=== PATIENT | male | born 1990 | race Hispanic/Latino ===

== ENCOUNTER 2017-11-16 11:17 | Inpatient (IN) | payer SELFPAY ==
[~2017-11-16] VITALS: Ht 165.1 cm; Wt 81.0 kg
[2017-11-16] VITALS (8 sets, daily range): BP systolic 106–128; BP diastolic 67–87
[~2017-11-16 11:17] MED LIST: METFORMIN500 MG PO; ZPAK PO
[2017-11-16] MEDS ORDERED: SERTRALINE HCL50 MG PO (11:57)
[2017-11-16] MEDS ORDERED: METFORMIN500 MG PO (11:58)
[2017-11-16 12:19] LABS: IMMATURE GRANULOCYTES 0.4 % (0.0-1.0); MEAN CELL VOLUME 86.6 fL CALC (80.0-100.0); MEAN CORPUSCULAR HGB 30.3 pG CALC (26.0-32.0); NEUT# 5.68 thou/uL (1.82-7.42); RED BLOOD COUNT 4.99 mill/uL (4.70-6.10); RED CELL DISTRI WIDTH 13.2 % (11.5-15.5)
[2017-11-16 12:22] LABS: URINE BILIRUBIN - DIPSTICK NEGATIVE (NEGATIVE); URINE BLOOD DIPSTICK TRACE-INTACT (NEGATIVE); URINE COLOR YELLOW; URINE GLUCOSE - DIPSTICK >=1000 mg/dL (NEGATIVE); URINE KETONE >=80 mg/dL (NEGATIVE); URINE LEUK ESTERASE NEGATIVE (NEGATIVE); URINE NITRITE - DIPSTICK NEGATIVE (Negative); URINE PH 5.5 (4.5-8.0); URINE PROTEIN - DIPSTICK NEGATIVE (NEG-TRACE); URINE SPECIFIC GRAVITY 1.015; URINE UROBILINOGEN - DIPSTICK 0.2 E.U./dL (0.2)
[2017-11-16 12:26] LABS: HEMATOCRIT 43.2 % (39.0-50.0); HEMOGLOBIN 15.1 g/dl (14.0-18.0); URINE CLARITY CLEAR
[2017-11-16 12:33] LABS: BILIRUBIN, TOTAL 0.6 mg/dL (0.0-1.4); BUN 9 mg/dL (9-20); BUN/CREATININE RATIO 11 (12-20 (CALC)); CHLORIDE 97 mmol/l (95-108); CREATININE 0.8 mg/dL (0.7-1.3); GFR > 60 ML/MIN (>=60 (CALC)); GFR FOR AFR.AMER. > 60 ML/MIN (>=60 (CALC)); SGPT/ALT 57 u/l (21-72); SODIUM 134 mmol/l (137-146); TOTAL PROTEIN 7.5 g/dL (6.3-8.2)
[2017-11-16 12:37] LABS: POTASSIUM 3.4 mmol/l (3.5-5.1)
[2017-11-16 12:38] LABS: ALBUMIN 4.4 g/dL (3.2-5.0); ALKALINE PHOSPHATASE 171 u/l (38-126); ANION GAP 33 (6-22 (CALC)); CARBON DIOXIDE 7 mmol/l (22-30); SGOT/AST 25 u/l (17-59)
[2017-11-16 17:58] LABS: POTASSIUM 2.7 mmol/l (3.5-5.1)
[2017-11-16 21:15] LABS: POTASSIUM 2.8 mmol/l (3.5-5.1)
[2017-11-17] VITALS (13 sets, daily range): BP systolic 98–117; BP diastolic 50–79
[2017-11-17 01:27] LABS: POTASSIUM 3.7 mmol/l (3.5-5.1)
[2017-11-17 05:27] LABS: POTASSIUM 3.4 mmol/l (3.5-5.1)
[2017-11-17 06:43] LABS: ANION GAP 23 (6-22 (CALC)); CARBON DIOXIDE 15 mmol/l (22-30); CHLORIDE 105 mmol/l (95-108); POTASSIUM 3.4 mmol/l (3.5-5.1); SODIUM 139 mmol/l (137-146)
[2017-11-17 06:45] LABS: HEMATOCRIT 40.1 % (39.0-50.0); HEMOGLOBIN 14.3 g/dl (14.0-18.0); MEAN CELL VOLUME 85.5 fL CALC (80.0-100.0); MEAN CORPUSCULAR HGB 30.5 pG CALC (26.0-32.0); MEAN CORPUSCULAR HGB CONC 35.7 g/L CALC (32.0-36.0); RED BLOOD COUNT 4.69 mill/uL (4.70-6.10); RED CELL DISTRI WIDTH 13.4 % (11.5-15.5)
[2017-11-17 06:55] LABS: BUN 8 mg/dL (9-20); BUN/CREATININE RATIO 13 (12-20 (CALC)); CREATININE 0.6 mg/dL (0.7-1.3); GFR > 60 ML/MIN (>=60 (CALC)); GFR FOR AFR.AMER. > 60 ML/MIN (>=60 (CALC))
[2017-11-17 17:59] LABS: ANION GAP 20 (6-22 (CALC)); BUN 6 mg/dL (9-20); BUN/CREATININE RATIO 12 (12-20 (CALC)); CARBON DIOXIDE 22 mmol/l (22-30); CHLORIDE 99 mmol/l (95-108); CREATININE 0.6 mg/dL (0.7-1.3); GFR > 60 ML/MIN (>=60 (CALC)); GFR FOR AFR.AMER. > 60 ML/MIN (>=60 (CALC)); POTASSIUM 3.6 mmol/l (3.5-5.1); SODIUM 137 mmol/l (137-146)
[2017-11-18] VITALS (8 sets, daily range): BP systolic 88–110; BP diastolic 58–75
[2017-11-18 05:35] LABS: HEMATOCRIT 39.9 % (39.0-50.0); HEMOGLOBIN 14.3 g/dl (14.0-18.0); MEAN CELL VOLUME 84.4 fL CALC (80.0-100.0); MEAN CORPUSCULAR HGB 30.2 pG CALC (26.0-32.0); MEAN CORPUSCULAR HGB CONC 35.8 g/L CALC (32.0-36.0); RED BLOOD COUNT 4.73 mill/uL (4.70-6.10); RED CELL DISTRI WIDTH 12.9 % (11.5-15.5)
[2017-11-18 05:36] LABS: ANION GAP 16 (6-22 (CALC)); BUN 9 mg/dL (9-20); BUN/CREATININE RATIO 18 (12-20 (CALC)); CARBON DIOXIDE 28 mmol/l (22-30); CHLORIDE 100 mmol/l (95-108); CREATININE 0.5 mg/dL (0.7-1.3); GFR > 60 ML/MIN (>=60 (CALC)); GFR FOR AFR.AMER. > 60 ML/MIN (>=60 (CALC)); SODIUM 140 mmol/l (137-146)
[2017-11-18] MEDS ORDERED: NOVOLIN 70/30 SC (11:21)
== END 2017-11-18 14:30 | disposition home or self-care (01) | DRG 639 ==
LOC: ED 11:17 → ED-I 14:13 → ED 14:50 → ICU 14:51
PROVIDERS: Family Medicine; ADMIT Internal Medicine; ATTEND Internal Medicine
PROC: 3E0234Z Introduction of Serum, Toxoid and Vaccine into Muscle, Percutaneous Approach (ICD-10-PCS; principal; 2017-11-18)
DX: E11.10 Type 2 diabetes mellitus with ketoacidosis without coma (principal); E87.6 Hypokalemia; F10.10 Alcohol abuse, uncomplicated; F17.210 Nicotine dependence, cigarettes, uncomplicated; Z91.14 Patient's other noncompliance with medication regimen; Z23 Encounter for immunization

== ENCOUNTER 2018-06-12 17:51 | Inpatient (IN) | payer SELFPAY ==
[~2018-06-12] VITALS: Ht 165.1 cm; Wt 63.2 kg
[~2018-06-12 17:51] MED LIST changes: +NOVOLIN 70/30 SC; +SERTRALINE HCL50 MG PO
--- NOTE | 2018-06-12 18:00 | NUR ---
PATIENT TO ROOM VIA EMS STRETCHER, TEX. EMS BLOOD GLUCOSE 400.
[2018-06-12] MEDS ORDERED: INSULIN SC (18:28)
[2018-06-12] MEDS ORDERED: ACCUPRIL5 MG PO (18:28)
--- NOTE | 2018-06-12 18:29 | NUR ---
PATIENT REPORTS TAKING INSULIN TO TREAT DIABETES, UNKNOWN WHAT INSULIN. REPORTS LAST TAKING X1 WEEKS AGO.
[2018-06-12 18:34] LABS: HEMOGLOBIN 15.2 g/dl (14.0-18.0); MEAN CORPUSCULAR HGB 30.2 pG CALC (26.0-32.0); MEAN CORPUSCULAR HGB CONC 32.4 g/L CALC (32.0-36.0); PLATELET COUNT 201 thou/uL (130-400); RED BLOOD COUNT 5.04 mill/uL (4.70-6.10); RED CELL DISTRI WIDTH 12.7 % (11.5-15.5)
[2018-06-12 18:39] LABS: URINE BILIRUBIN - DIPSTICK NEGATIVE (NEGATIVE); URINE BLOOD DIPSTICK SMALL (NEGATIVE); URINE COLOR YELLOW; URINE GLUCOSE - DIPSTICK 500 mg/dL (NEGATIVE); URINE KETONE >=80 mg/dL (NEGATIVE); URINE LEUK ESTERASE NEGATIVE (NEGATIVE); URINE NITRITE - DIPSTICK NEGATIVE (Negative); URINE PROTEIN - DIPSTICK 30 mg/dL (NEG-TRACE); URINE SPECIFIC GRAVITY >=1.030; URINE UROBILINOGEN - DIPSTICK 0.2 E.U./dL (0.2)
--- NOTE | 2018-06-12 18:40 | NUR ---
PATIENT REQUESTING PO FLUIDS, INFORMED OF NPO STATUS.
[2018-06-12 18:46] LABS: ALBUMIN 4.7 g/dL (3.2-5.0); ALKALINE PHOSPHATASE 142 u/l (38-126); BILIRUBIN, TOTAL 0.6 mg/dL (0.0-1.4); BUN 10 mg/dL (9-20); BUN/CREATININE RATIO 12 (12-20 (CALC)); CHLORIDE 104 mmol/l (95-108); CREATININE 0.8 mg/dL (0.7-1.3); GFR > 60 ML/MIN (>=60 (CALC)); GFR FOR AFR.AMER. > 60 ML/MIN (>=60 (CALC)); SGOT/AST 19 u/l (17-59); SODIUM 134 mmol/l (137-146); URINE CLARITY CLEAR
[2018-06-12 18:54] LABS: URINE SQUAMOUS EPITHELIAL CELL FEW EPI/hpf (0-FEW)
[2018-06-12 18:55] LABS: URINE HYALINE CAST FEW lpf (NONE-RARE); URINE YEAST FEW hpf
[2018-06-12 18:57] LABS: ANION GAP 29 (6-22 (CALC)); CARBON DIOXIDE < 5 mmol/l (22-30)
--- NOTE | 2018-06-12 18:59 | NUR ---
REPORT GIVEN TO ALFONZO CHATMAN. INFORM OF PATIENT LABS AND TREATMENT. CARE RELINQUISHED TO ALFONZO CHATMAN.
--- NOTE | 2018-06-12 19:09 | NUR ---
IV PHENERGAN GIVEN PER MD ORDER.
[2018-06-12 19:23] LABS: HEMATOCRIT 46.9 % (39.0-50.0); MEAN CELL VOLUME 93.1 fL CALC (80.0-100.0)
[2018-06-12 19:26] LABS: IMMATURE GRANULOCYTES 8.9 % (0.0-5.0)
[2018-06-12 19:27] LABS: BAND 16 % (0-8); MANUAL DIFFERENTIAL YES
--- NOTE | 2018-06-12 19:30 | NUR ---
ACCU CHECK 319 MD AWARE.
--- NOTE | 2018-06-12 19:43 | NUR ---
IV INSULIN GIVEN PER MD ORDER.
--- NOTE | 2018-06-12 20:12 | NUR ---
REPORT GIVEN TO AMANDA MEJÍA AT BEDSIDE.
--- NOTE | 2018-06-12 20:14 | NUR ---
IV ABT. STARTED PER MD ORDER.
--- NOTE | 2018-06-12 20:45 | NUR ---
ACCU CHECK 247, INSULIN GTT STARTED AT 3 UNITS/HR. PER MD ORDER.
--- NOTE | 2018-06-12 20:59 | NUR ---
PT. TAKEN TO ICU VIA STRETCHER, PT. GUMS APPEAR THEY ARE BLEEDING. GAS WELDING EQUIPMENT MECHANIC AMANDA AWARE. MOUTH CARE GIVEN BY ICU NURSES.
[2018-06-12 21:00] VITALS: BP 126/76
--- NOTE | 2018-06-12 21:00 | NUR ---
PT TO ICU BED 4 VIA STRETCHER. PT SLEEPING WITH SNOROUS BREATHING NOTED. PT AROUSES SLUGGISHLY TO VERBAL STIMULI. PT ABLE TO TRANSFER WITH MINIMAL ASSISTANCE FROM STRETCHER TO BED. PT IS ALERT TO SELF AND PLACE PT IS UNSURE OF DATE. PT REPORTS THAT HE DRANK 20 BEERS ON WEDNESDAY BUT DOES NOT DRINK EVERYDAY. PT RESP ARE EXTREMELY LABORED. PT IS VERY RESTLESS. NOTED COPIOUS BLOOD IN ORAL CAVITY. ORAL CAVITY CLEANSED. PT REQUESTING WATER. EXPLAINED NPO STATUS TO PATIENT. ORIENTED TO ROOM AND UNIT. CALL LIGHT IN REACH. IV PATENT X2. COMPLETING 2ND BOLUS OF IVF. DR ROSE NOTIFIED OF PT STATUS. NEW ORDERS RECEIVED. WILL CONTINUE TO [facility]
[2018-06-12 21:15] VITALS: BP 140/72
[2018-06-12 21:30] VITALS: BP 138/92
--- NOTE | 2018-06-12 21:30 | NUR ---
RT INTO COMPLETE ABG. LAB INTO DRAW LACTIC AND CH7
[2018-06-12 21:55] LABS: BARBITURATES NEGATIVE (NEGATIVE); COCAINE NEGATIVE (NEGATIVE); METHADONE NEGATIVE (NEGATIVE); OXCYCODONE NEGATIVE (NEGATIVE); TETRAHYDROCANNABIONOL NEGATIVE (NEGATIVE); TRICYLIC ANTIDEPRESSANTS NEGATIVE (NEGATIVE)
[2018-06-12 22:03] LABS: BUN 11 mg/dL (9-20); BUN/CREATININE RATIO 14 (12-20 (CALC)); CHLORIDE 112 mmol/l (95-108); CREATININE 0.8 mg/dL (0.7-1.3); GFR > 60 ML/MIN (>=60 (CALC)); GFR FOR AFR.AMER. > 60 ML/MIN (>=60 (CALC)); POTASSIUM 3.7 mmol/l (3.5-5.1); SODIUM 138 mmol/l (137-146)
[2018-06-12 22:12] LABS: ANION GAP 25 (6-22 (CALC)); CARBON DIOXIDE < 5 mmol/l (22-30)
--- NOTE | 2018-06-12 22:12 | NUR ---
SODIUM BICARB GIVEN PER MD ORDERS. PT CONTINUES TO BE RESTLESS IN BED WHILE SLEEPING ON AND OFF. CALL LIGHT IN REACH. WILL CONTINUE TO MONITOR.
--- NOTE | 2018-06-12 22:16 | NUR ---
DR ROES NOTIFIED OF LAB RESULTS.
[2018-06-12 22:20] VITALS: BP 115/92
--- NOTE | 2018-06-12 23:00 | NUR ---
ACCUCHECK 270 WILL CONTINUE THE INSULIN DRIP AT 3 UNITS PER HOUR
[2018-06-12 23:15] VITALS: BP 132/85
--- NOTE | 2018-06-12 23:52 | NUR ---
MEDICATED PT WITH ATIVAN AND ZOFRAN PER MD ORDERS. PT RESTLESS IN BED EVEN WHEN EYES ARE CLOSED. PT CONTINUOUSLY ASKING FOR WATER EVEN AFTER NAUSEA/VOMTTING OCCURRED. EXPLAINED AGAIN THAT PT HAS A NPO STATUS. PT UPSET THAT HE IS NOT GETTING WATER AND CONTINUES TO BE RESTLESS. WILL CONTINUE TO CLOSELY MONITOR
--- NOTE | 2018-06-12 23:56 | NUR ---
ACCUCECK 250. WILL MAINTAIN THE INSULIN DRIP AT 3UNITS/HR
[2018-06-13] VITALS (16 sets, daily range): BP systolic 77–149; BP diastolic 45–75
--- NOTE | 2018-06-13 00:37 | NUR ---
CALLED RESPIRATORY TO LOOK AT PATIENT DUE TO A CHANGE IN BREATHING. PT SEEMS TO BE GASPING FOR AIR AND STRIDOR IS NOTED. RT RECOMMENDED ANOTHER ABG. ABG DRAWN. LAB INTO DRAW BMP. PT CONTINUES TO BE RESTLESS IN BED. WHILE NOTIFY MD ONCE WE RECIEVE ALL RESULTS.
[2018-06-13 00:54] LABS: BUN 11 mg/dL (9-20); BUN/CREATININE RATIO 13 (12-20 (CALC)); CHLORIDE 114 mmol/l (95-108); CREATININE 0.9 mg/dL (0.7-1.3); GFR > 60 ML/MIN (>=60 (CALC)); GFR FOR AFR.AMER. > 60 ML/MIN (>=60 (CALC)); POTASSIUM 3.4 mmol/l (3.5-5.1); SODIUM 140 mmol/l (137-146)
[2018-06-13 00:56] LABS: ANION GAP 24 (6-22 (CALC)); CARBON DIOXIDE < 5 mmol/l (22-30)
[2018-06-13 01:00] LABS: INFLUENZA A NONE DETECTED (NONE DETECT); INFLUENZA B NONE DETECTED (NONE DETECT)
[2018-06-13 01:26] LABS: INTERNATIONAL NORMALIZED RATIO 1.1 RATIO (0.7-1.3); PROTHROMBIN TIME 11.4 SECONDS (9.0-12.5)
[2018-06-13 01:27] LABS: MAGNESIUM 1.9 mg/dL (1.6-2.3)
[2018-06-13 01:59] LABS: HEMATOCRIT 44.9 % (39.0-50.0); HEMOGLOBIN 14.9 g/dl (14.0-18.0); MEAN CELL VOLUME 92.8 fL CALC (80.0-100.0); MEAN CORPUSCULAR HGB 30.8 pG CALC (26.0-32.0); MEAN CORPUSCULAR HGB CONC 33.2 g/L CALC (32.0-36.0); RED BLOOD COUNT 4.84 mill/uL (4.70-6.10); RED CELL DISTRI WIDTH 12.8 % (11.5-15.5)
[2018-06-13 02:21] LABS: IMMATURE GRANULOCYTES 11.2 % (0.0-5.0); MANUAL DIFFERENTIAL YES; PLATELET COUNT 119 thou/uL (130-400)
[2018-06-13 02:22] LABS: BAND 3 % (0-8); PLATELET ESTIMATE SLIGHT DECREASE
--- NOTE | 2018-06-13 03:14 | NUR ---
0053-RANGELAND MANAGEMENT SPECIALIST CALLED 0057-Jose Enrique MOJICA RN RESPONSDED 0105-DR AYALA AT [facility] DECISION MADE TO INTUBATE AFTER REVEIWEING ABG AND ASSESSING PT. 0110-REPORT DR ROSE VIA PHONE NEW ORDERS RECEIVED. 0114-INTUBATION INDUCED WITH 20MG OF ETOMADATE AND 90MG SUCC BY DR AYALA. 7.0 ET TUBE PLACED 24 CM AT LIP CONFIRMED BY CO2 DETECTOR AND AUSCULATION 0120-CALL PLACED TO XRAY 0122-14 OG PLACED TO LIS 0130-DIPROVAN INFUSION STARTED PER PROTOCOL RESTRAINTS APPLIED PER MD ORDER. 0135- XRAY CONFIRMED PLACEMENT OF ET TUBE 0136-OG TUBE REMOVED #18 REPLACED WITH COFFEE GROUND STOMACH CONTENTS TO LIS 0147-#20G TO RFA 0150-#18 TO LAC 0157-ATIVAN 0201- PROTONIX IV BOLUS 0210 16 MENDIETA 0225-DIPROVAN INCREASED PER PROTOCOL 0227-DR ROSE AT BEDSIDE 0230-ACCU CHECK [address] LOWERY AT [facility] 0255-PHONE CONMSULT WITH ANESTHESIA ALLISON KIM FIREWORKS ASSEMBLY SUPERVISOR FOR SEDATION/PARALYTIC 0304- ROCORONIUM 50MG GIVEN PER MD PER PROTOCOL 0305- DIPROVAN DECREASED TO 25MCG 0308-CENTRAL LINE #7FR TLC PLACED TO R FEMORAL PER DR AYALA MULTIPLE CONSULTED CALLS WITH DR ROSE OLMSTEAD TO [facility]. AWAITING PLACEMETN FOR TRANSFER [facility]ULT[facility]LE HOSPITALS CALLED FOR PLACEMENT.
--- NOTE | 2018-06-13 03:41 | NUR ---
ROCORONIUM GIVEN BY MD PER PROTOCOL
[2018-06-13 03:55] LABS: ANION GAP 21 (6-22 (CALC)); BUN 14 mg/dL (9-20); BUN/CREATININE RATIO 13 (12-20 (CALC)); CHLORIDE 118 mmol/l (95-108); GFR > 60 ML/MIN (>=60 (CALC)); GFR FOR AFR.AMER. > 60 ML/MIN (>=60 (CALC)); POTASSIUM 3.6 mmol/l (3.5-5.1); SODIUM 140 mmol/l (137-146)
--- NOTE | 2018-06-13 04:00 | NUR ---
SPOKE WITH SUMI GONZALEZ'S SIGNIFICANT OTHER, NOTIFIED OF PT BEING TRANSFERRED TO [facility], VOICES UNDERSTANDING.
[2018-06-13 04:02] LABS: CARBON DIOXIDE 5 mmol/l (22-30)
--- NOTE | 2018-06-13 04:09 | NUR ---
REPORT CALLED TO HENNY IN ICU. PHONE NUMBER PROVIDED FOR FURTHER QUESTIONS.
--- NOTE | 2018-06-13 04:10 | NUR ---
ATTEMPTED TO CALL NEXT OF KIN ON FACE SHEET. NO ANSWER AT THE NUMBER PROVIDED.
[2018-06-13 04:13] LABS: MEAN CELL VOLUME 91.2 fL CALC (80.0-100.0); MEAN CORPUSCULAR HGB 30.7 pG CALC (26.0-32.0); MEAN CORPUSCULAR HGB CONC 33.7 g/L CALC (32.0-36.0); PLATELET COUNT 117 thou/uL (130-400); RED CELL DISTRI WIDTH 12.9 % (11.5-15.5)
[2018-06-13 04:21] LABS: HEMATOCRIT 38.3 % (39.0-50.0); HEMOGLOBIN 12.9 g/dl (14.0-18.0)
[2018-06-13 04:22] LABS: BAND 7 % (0-8); MANUAL DIFFERENTIAL YES; PLATELET ESTIMATE SLIGHT DECREASE
--- NOTE | 2018-06-13 04:30 | NUR ---
AEORMED ARRIVED. REPORT PROVIDED TO
--- NOTE | 2018-06-13 06:00 | NUR ---
PT ON STRETCHER LEFT VIA STRETCHER WITH [facility]ER[facility]ED.
--- NOTE | 2018-06-13 06:21 | NUR ---
ALENA WALLER MADE ALL CALLS STARTING AT APPROX 0200 TO [facility] FOR PLACEMENT ALSO PLACED AEROMED ON STANDBY UNTIL WE HAD ACCEPTANCE. CALLS PLACED TO [facility], [facility], [facility], AND [facility]. [facility] ACCEPTED AND AEROMED WAS CALLED AND ENROUTE AT 0400.
== END 2018-06-13 05:50 | disposition short-term general hospital (02) | DRG 638 ==
LOC: ED 17:51 → ED-I 19:50 → ED 20:02 → ICU 20:03
PROVIDERS: Emergency Medicine; ADMIT Internal Medicine; ATTEND Internal Medicine
PROC: 0BH17EZ Insertion of Endotracheal Airway into Trachea, Via Natural or Artificial Opening (ICD-10-PCS; principal; 2018-06-13)
PROC: 5A1935Z Respiratory Ventilation, Less than 24 Consecutive Hours (ICD-10-PCS; 2018-06-13)
DX: E10.10 Type 1 diabetes mellitus with ketoacidosis without coma (principal); G93.49 Other encephalopathy; K92.0 Hematemesis; F10.10 Alcohol abuse, uncomplicated; F99 Mental disorder, not otherwise specified; F17.210 Nicotine dependence, cigarettes, uncomplicated; R06.1 Stridor; Z91.14 Patient's other noncompliance with medication regimen; Z79.4 Long term (current) use of insulin; Z78.1 Physical restraint status
CPT/HCPCS: J2060; J2354; J3475; S0164

== ENCOUNTER 2019-09-19 | Inpatient (IN) | payer SELFPAY ==
[2019-09-19] VITALS (74 sets, daily range): BP systolic 68–107; BP diastolic 40–70
[~2019-09-19] MED LIST changes: +ACCUPRIL5 MG PO; +INSULIN SC
[2019-09-19 04:48] LABS: HEMATOCRIT 47.9 % (39.0-50.0); HEMOGLOBIN 15.4 g/dl (14.0-18.0); IMMATURE GRANULOCYTES 4.8 % (0.0-5.0); MEAN CELL VOLUME 101.3 fL CALC (80.0-100.0); MEAN CORPUSCULAR HGB 32.6 pG CALC (26.0-32.0); MEAN CORPUSCULAR HGB CONC 32.2 g/L CALC (32.0-36.0); NEUT# 18.82 thou/uL (1.82-7.42); RED BLOOD COUNT 4.73 mill/uL (4.70-6.10); RED CELL DISTRI WIDTH 12.3 % (11.5-15.5)
[2019-09-19 04:59] LABS: ACT PARTIAL THROMBO TIME 39.2 SECONDS (20.0-32.5); INTERNATIONAL NORMALIZED RATIO 1.1 RATIO (0.7-1.3); PROTHROMBIN TIME 11.7 SECONDS (9.0-12.5)
[2019-09-19 05:00] LABS: ALBUMIN 4.8 g/dL (3.2-5.0); AMYLASE 204 u/l (30-110); BILIRUBIN, TOTAL 0.7 mg/dL (0.0-1.4); BUN 17 mg/dL (9-20); BUN/CREATININE RATIO 11 (12-20 (CALC)); CREATININE 1.5 mg/dL (0.7-1.3); ETHYL ALCOHOL 0 mg/dl (0-30); GFR 55 ML/MIN (>=60 (CALC)); GFR FOR AFR.AMER. > 60 ML/MIN (>=60 (CALC)); LIPASE 188 u/l (23-300); POTASSIUM 4.1 mmol/l (3.5-5.1); SODIUM 133 mmol/l (137-146); TOTAL PROTEIN 8.7 g/dL (6.3-8.2)
[2019-09-19 05:09] LABS: CHLORIDE 100 mmol/l (95-108)
[2019-09-19 05:10] LABS: ALKALINE PHOSPHATASE 223 u/l (38-126); ANION GAP 32 (6-22 (CALC)); MAGNESIUM 2.8 mg/dL (1.6-2.3); SGOT/AST 75 u/l (17-59)
[2019-09-19 05:11] LABS: CARBON DIOXIDE 5 mmol/l (22-30)
[2019-09-19 07:18] LABS: BUN 17 mg/dL (9-20); BUN/CREATININE RATIO 13 (12-20 (CALC)); CHLORIDE 107 mmol/l (95-108); CREATININE 1.3 mg/dL (0.7-1.3); GFR > 60 ML/MIN (>=60 (CALC)); GFR FOR AFR.AMER. > 60 ML/MIN (>=60 (CALC)); POTASSIUM 4.6 mmol/l (3.5-5.1); SODIUM 136 mmol/l (137-146)
[2019-09-19 07:24] LABS: ANION GAP 29 (6-22 (CALC)); CARBON DIOXIDE 5 mmol/l (22-30)
[2019-09-19 11:55] LABS: BUN 21 mg/dL (9-20); BUN/CREATININE RATIO 15 (12-20 (CALC)); CHLORIDE 110 mmol/l (95-108); CREATININE 1.4 mg/dL (0.7-1.3); GFR 59 ML/MIN (>=60 (CALC)); GFR FOR AFR.AMER. > 60 ML/MIN (>=60 (CALC)); SODIUM 137 mmol/l (137-146)
[2019-09-19 11:58] LABS: ANION GAP 26 (6-22 (CALC)); CARBON DIOXIDE < 5 mmol/l (22-30)
[2019-09-19 12:47] LABS: URINE BILIRUBIN - DIPSTICK NEGATIVE (NEGATIVE); URINE BLOOD DIPSTICK LARGE (NEGATIVE); URINE COLOR YELLOW; URINE GLUCOSE - DIPSTICK >=1000 mg/dL (NEGATIVE); URINE KETONE >=80 mg/dL (NEGATIVE); URINE LEUK ESTERASE NEGATIVE (NEGATIVE); URINE NITRITE - DIPSTICK NEGATIVE (Negative); URINE PROTEIN - DIPSTICK 30 mg/dL (NEG-TRACE); URINE SPECIFIC GRAVITY 1.015; URINE UROBILINOGEN - DIPSTICK 0.2 E.U./dL (0.2)
[2019-09-19 12:48] LABS: URINE EPITHELIAL CELLS FEW EPI/hpf (0-FEW); URINE MUCUS MODERATE hpf (NONE-FEW)
[2019-09-19 12:52] LABS: BARBITURATES NEGATIVE (NEGATIVE); COCAINE NEGATIVE (NEGATIVE); METHADONE NEGATIVE (NEGATIVE); OXCYCODONE NEGATIVE (NEGATIVE); TETRAHYDROCANNABIONOL NEGATIVE (NEGATIVE); TRICYLIC ANTIDEPRESSANTS NEGATIVE (NEGATIVE)
[2019-09-19 15:19] LABS: BUN 29 mg/dL (9-20); BUN/CREATININE RATIO 19 (12-20 (CALC)); CHLORIDE 112 mmol/l (95-108); CREATININE 1.6 mg/dL (0.7-1.3); GFR 51 ML/MIN (>=60 (CALC)); GFR FOR AFR.AMER. > 60 ML/MIN (>=60 (CALC)); SODIUM 137 mmol/l (137-146)
[2019-09-19 15:21] LABS: ANION GAP 22 (6-22 (CALC)); POTASSIUM 2.9 mmol/l (3.5-5.1)
[2019-09-19 15:22] LABS: CARBON DIOXIDE 6 mmol/l (22-30)
[2019-09-19 18:11] LABS: CREATININE 1.9 mg/dL (0.7-1.3); POTASSIUM 2.7 mmol/l (3.5-5.1)
[2019-09-19 22:47] LABS: CREATININE 2.2 mg/dL (0.7-1.3); POTASSIUM 2.8 mmol/l (3.5-5.1)
[2019-09-20] VITALS (9 sets, daily range): BP systolic 93–111; BP diastolic 49–61
[2019-09-20 05:22] LABS: MEAN CORPUSCULAR HGB 33.3 pG CALC (26.0-32.0); MEAN CORPUSCULAR HGB CONC 35.9 g/L CALC (32.0-36.0); RED BLOOD COUNT 3.63 mill/uL (4.70-6.10); RED CELL DISTRI WIDTH 12.8 % (11.5-15.5)
[2019-09-20 05:39] LABS: HEMATOCRIT 33.7 % (39.0-50.0); HEMOGLOBIN 12.1 g/dl (14.0-18.0); MEAN CELL VOLUME 92.8 fL CALC (80.0-100.0)
[2019-09-20 05:50] LABS: BILIRUBIN, TOTAL 0.6 mg/dL (0.0-1.4); CREATININE 2.9 mg/dL (0.7-1.3); POTASSIUM 2.9 mmol/l (3.5-5.1)
[2019-09-20 05:52] LABS: ALBUMIN 2.1 g/dL (3.2-5.0); TOTAL PROTEIN 4.8 g/dL (6.3-8.2)
== END 2019-09-20 11:27 | disposition short-term general hospital (02) | DRG 871 ==
PROVIDERS: ADMIT Internal Medicine
PROC: 0BH17EZ Insertion of Endotracheal Airway into Trachea, Via Natural or Artificial Opening (ICD-10-PCS; principal; 2019-09-19)
PROC: 5A1935Z Respiratory Ventilation, Less than 24 Consecutive Hours (ICD-10-PCS; 2019-09-19)
PROC: 02HV33Z Insertion of Infusion Device into Superior Vena Cava, Percutaneous Approach (ICD-10-PCS; 2019-09-19)
DX: A41.9 Sepsis, unspecified organism (principal); E10.10 Type 1 diabetes mellitus with ketoacidosis without coma; J18.9 Pneumonia, unspecified organism; R65.21 Severe sepsis with septic shock; G93.41 Metabolic encephalopathy; N17.9 Acute kidney failure, unspecified; F17.210 Nicotine dependence, cigarettes, uncomplicated; T38.3X6A Underdosing of insulin and oral hypoglycemic [antidiabetic] drugs, initial encounter; Z91.128 Patient's intentional underdosing of medication regimen for other reason; Z79.4 Long term (current) use of insulin
CPT/HCPCS: J2060; S0164

== ENCOUNTER 2020-10-15 10:11 | Inpatient (IN) | payer SELFPAY ==
--- NOTE | 2020-10-14 22:20 | NUR ---
BLOOD DRAWN FROM TLC FOR CHEM 7-PORT FLUSHED PRE AND POST BLOOD DRAW PER PROTOCOL.
[2020-10-15] VITALS (11 sets, daily range): BP systolic 122–154; BP diastolic 81–98
[~2020-10-15] VITALS: Ht 165.1 cm; Wt 76.0 kg
--- NOTE | 2020-10-15 10:11 | NUR ---
PATIENT SOB FOR PAST 1 MONTH HAS STOPPED TAKING INSULIN AND HAS BEEN ON A DRINKING BINGE. MD AT BEDSIDE PATIENT HAS ACETONE SMELLING BREATH
[2020-10-15 11:03] LABS: IMMATURE GRANULOCYTES 1.1 % (0.0-5.0); MEAN CELL VOLUME 95.9 fL CALC (80.0-100.0); MEAN CORPUSCULAR HGB 31.1 pG CALC (26.0-32.0); MEAN CORPUSCULAR HGB CONC 32.4 g/dL CAL (32.0-36.0); NEUT# 8.64 thou/uL (1.82-7.42); RED BLOOD COUNT 5.15 mill/uL (4.70-6.10); RED CELL DISTRI WIDTH 15.1 % (11.5-15.5)
[2020-10-15 11:20] LABS: BILIRUBIN, TOTAL 0.8 mg/dL (0.0-1.4); BUN 11 mg/dL (9-20); ETHYL ALCOHOL 0 mg/dl (0-30); LIPASE 47 u/l (23-300); SGOT/AST 35 u/l (17-59)
[2020-10-15 11:21] LABS: HEMATOCRIT 49.4 % (39.0-50.0)
[2020-10-15 11:30] LABS: BUN/CREATININE RATIO 12 (12-20 (CALC)); CHLORIDE 100 mmol/l (95-108); CREATININE 0.9 mg/dL (0.7-1.3); GFR > 60 ML/MIN (>=60 (CALC)); GFR FOR AFR.AMER. > 60 ML/MIN (>=60 (CALC)); POTASSIUM 5.1 mmol/l (3.5-5.1); SODIUM 130 mmol/l (137-146)
[2020-10-15 11:31] LABS: ALBUMIN 4.7 g/dL (3.2-5.0); ALKALINE PHOSPHATASE 134 u/l (38-126); ANION GAP 30 (6-22 (CALC)); CARBON DIOXIDE < 5 mmol/l (22-30); TOTAL PROTEIN 10.2 g/dL (6.3-8.2)
--- NOTE | 2020-10-15 11:39 | NUR ---
CRITICAL LAB TAKEN AND RELAYED TO DR GOTTI
[2020-10-15 11:53] LABS: TSH, 3RD GENERATION 0.54 uIU/mL (0.47 - 4.68)
[2020-10-15 12:06] LABS: URINE BILIRUBIN - DIPSTICK NEGATIVE (NEGATIVE); URINE BLOOD DIPSTICK SMALL (NEGATIVE); URINE COLOR YELLOW; URINE GLUCOSE - DIPSTICK 500 mg/dL (NEGATIVE); URINE KETONE >=80 mg/dL (NEGATIVE); URINE LEUK ESTERASE NEGATIVE (NEGATIVE); URINE NITRITE - DIPSTICK NEGATIVE (Negative); URINE PROTEIN - DIPSTICK 100 mg/dL (NEG-TRACE); URINE SPECIFIC GRAVITY >=1.030; URINE UROBILINOGEN - DIPSTICK 0.2 E.U./dL (0.2)
[2020-10-15 12:08] LABS: URINE EPITHELIAL CELLS FEW EPI/hpf (0-FEW); URINE MUCUS MODERATE hpf (NONE-FEW); URINE RBC 0-2 RBC/hpf (0-5)
--- NOTE | 2020-10-15 12:30 | NUR ---
PT CONTINUES WITH FAST BREATHING, MD ORDERED MANY PRESCRIPTIONS AND HE STATES THAT A CENTRAL LINE IS WARRENTED. PT AND FAMILY WHO IS AT BEDSIDE IS UPDATED AND EDUCATED ON THE NEED FOR A CENTRAL LINE
--- NOTE | 2020-10-15 13:30 | NUR ---
BG RECHECKED AND IT RESULTED IN 326. PT RR IS SLOWER AND AT ABOUT 30. INSULINE CONTINUES TO BE INFUSED BICARB/POTASSIUM INFUSION CONTINUES LR CONTINUE TO BE INFUSED.
[2020-10-15] MEDS ORDERED: LEVEMIR100 UNIT/M SC (13:50)
--- NOTE | 2020-10-15 14:20 | NUR ---
REPORT GIVEN TO SANTY PT TRANSPORTED TO ICU STABLE. RR CONTINUE TO BE ELEVATED AT 25-30. PT STATES THAT HE FEELS "A BIT BETTER". CONTINUES TO ASK FOR WATER BUT AT THIS POINT HE IS TOLD THAT HE IS NPO. TRANSPORTED WITH DRIPS INFUSING. Admission Note Report Given to: SANTY Transported by: Wheelchair X Stretcher Transported with: X Nurse Transporter X Patent IV O2 X Machined Parts Quality Inspector Location: X ICU MS2
--- NOTE | 2020-10-15 14:39 | NUR ---
PT ARRIVED TO UNIT ROOM 8 VIA STRETCHER WITH ER STAFF; ALERT AND ORIENTED; SWEDISH SPEAKING. ARRIVED TACHYPNEIC WITH RESPIRATIONS AT 36, FACIAL FLUSHING, AND SLIGHTLY ANXIOUS. STOOD AND PIVOTED INTO BED INDEPENDENTLY; ANSWERING QUESTIONS ABOUT HIS HISTORY. CONNECTED TO ATTACHMENTS; TACHYCARDIC IN THE 110'S; BP STABLE. SPO2 99-100% ON ROOM AIR; OXYGEN APPLIED AT 2L DUE TO LABORED BREATHING. CENTRAL LINE IN PLACE TO RIGHT NECK; REPLACED DUE TO BEING SATURATED WITH BLOOD; CH7 DRAWN FROM CENTRAL LINE AND SENT TO LAB. INSULIN INFUSING AT 4 UNITS/HR UPON ARRIVAL ALONG WITH SODIUM BICARB WITH POTASSIUM AND LACTATED RINGERS. PERIPHERAL IV TO LAC SALINE LOCKED. PT DENIES PAIN; REPORTS SUNBURN AROUND EYES AND UPPER CHEST WHERE HE HAS INCREASED REDNESS. LUNGS ARE CLEAR; PERRLA; ABRASION TO LEFT KNEE. ORIENTED TO ROOM AND CALL LIGHT SYSTEM. POC REVIEWED. PT ENCOURAGED TO VERBALIZE CONCERNS. STATES UNDERSTANDING. SAFETY MEASURES IN PLACE. CALL LIGHT WITHIN REACH.
[2020-10-15 15:38] LABS: BUN 9 mg/dL (9-20); BUN/CREATININE RATIO 12 (12-20 (CALC)); CHLORIDE 105 mmol/l (95-108); CREATININE 0.8 mg/dL (0.7-1.3); GFR > 60 ML/MIN (>=60 (CALC)); GFR FOR AFR.AMER. > 60 ML/MIN (>=60 (CALC)); POTASSIUM 4.7 mmol/l (3.5-5.1); SODIUM 132 mmol/l (137-146)
[2020-10-15 15:58] LABS: ANION GAP 27 (6-22 (CALC)); CARBON DIOXIDE < 5 mmol/l (22-30)
--- NOTE | 2020-10-15 16:00 | NUR ---
BAKARI COLMENARES AT BEDSIDE FOR EVAL. NEW ORDERS RECEIVED.
--- NOTE | 2020-10-15 16:55 | NUR ---
ACCU CHECK 210; INSULIN GTT TITRATED DOWN TO 3 UNITS/HR; D5 1/2 NS INFUSING PER DKA PROTOCOL. ATIVAN ALSO GIVEN FOR MILD ANXIETY.
--- NOTE | 2020-10-15 17:05 | NUR ---
INSULIN DRIP TITRATED DOWN TO 2 UNITS/HR FOR ACCU CHECK OF 199. PT RESTING ON RIGHT SIDE WITH EYES CLOSED ASLEEP WITH RESPIRATIONS DOWN TO 28 AFTER ATIVAN GIVEN.
[2020-10-15 18:58] LABS: BUN 8 mg/dL (9-20); BUN/CREATININE RATIO 11 (12-20 (CALC)); CHLORIDE 107 mmol/l (95-108); CREATININE 0.7 mg/dL (0.7-1.3); GFR > 60 ML/MIN (>=60 (CALC)); GFR FOR AFR.AMER. > 60 ML/MIN (>=60 (CALC)); POTASSIUM 4.1 mmol/l (3.5-5.1); SODIUM 132 mmol/l (137-146)
--- NOTE | 2020-10-15 19:00 | NUR ---
BS 196 OFF LAB DRAW-INSULIN GTT CONTINUES AT 2 UNITS/HR.
[2020-10-15 19:01] LABS: ANION GAP 24 (6-22 (CALC))
[2020-10-15 19:02] LABS: CARBON DIOXIDE < 5 mmol/l (22-30)
--- NOTE | 2020-10-15 19:30 | NUR ---
RESTING WITH EYES CLOSED. OPENS EYES TO NAME. ORIENTED X3. ANSWERS QUESTIONS APPROPRIATELY. FOLLOWS DIRECTIONS. RESP ARE DEEP, SLT TACHYPNEIC, NON-LABORED. O2 ON AT 2 L NC. O2 SAT 100% BREATH SOUNDS CLEAR THROUGHOUT LUNG MIRANDA. ABD SOFT WITH BOWEL SOUNDS. DENIES NAUSEA OR EMESIS. TAKING ICE CHIPS SPARINGLY. NO PERIPHERAL EDEMA, PULSES PALPABLE. SALINE LOCK IN TACT IN LAC. RITLC IN PLACE, DSG CDI. D51/2 NS INFUSING AT 125 ML/HR AND INSULIN GTT AT 2 UNITS/HR TO [facility]. RESIDENT CARE ASSISTANT SHOWS ST. DISCUSSED PLAN OF CARE. DENEIS NEEDS AT THIS TIME. CALL DICK IN REACH.
--- NOTE | 2020-10-15 21:00 | NUR ---
RSTIGN WITH EYES CLOSED. VSS. ST ON MONITOR.
[2020-10-15 22:54] LABS: BUN 8 mg/dL (9-20); BUN/CREATININE RATIO 9 (12-20 (CALC)); CHLORIDE 107 mmol/l (95-108); CREATININE 0.9 mg/dL (0.7-1.3); GFR > 60 ML/MIN (>=60 (CALC)); GFR FOR AFR.AMER. > 60 ML/MIN (>=60 (CALC)); POTASSIUM 3.9 mmol/l (3.5-5.1); SODIUM 133 mmol/l (137-146)
--- NOTE | 2020-10-15 23:00 | NUR ---
CHEMISTRY RESULTS BACK, NO CHANGES TO CURRENT IV FLUIDS AT THIS TIME. D5 1/2NS CONTINUES TO INFUSE AT 125 ML/HR.
[2020-10-15 23:04] LABS: ANION GAP 25 (6-22 (CALC)); CARBON DIOXIDE < 5 mmol/l (22-30)
[2020-10-16] VITALS (23 sets, daily range): BP systolic 107–153; BP diastolic 67–99
--- NOTE | 2020-10-16 | NUR ---
MEDICATED WITH LIBRIUM ORDERED FOR ANXIETY. VSS. INSULIN GTT CONTINUES AT 3 UNITS/HR.
--- NOTE | 2020-10-16 01:00 | NUR ---
RESTING CALMLY AT THIS T RINKU. RESP REMAIN VERY DEEP. RR 24-28.
--- NOTE | 2020-10-16 02:30 | NUR ---
BLOOD DRAWN FROM TLC FOR TROPONIN LEVEL AND CH7. PRE AND POST BLOOD DRAW FLUSHES PER PROTOCOL.
[2020-10-16 02:59] LABS: BUN 9 mg/dL (9-20); BUN/CREATININE RATIO 8 (12-20 (CALC)); CHLORIDE 109 mmol/l (95-108); CREATININE 1.1 mg/dL (0.7-1.3); GFR > 60 ML/MIN (>=60 (CALC)); GFR FOR AFR.AMER. > 60 ML/MIN (>=60 (CALC)); POTASSIUM 3.9 mmol/l (3.5-5.1); SODIUM 135 mmol/l (137-146)
[2020-10-16 03:01] LABS: ANION GAP 25 (6-22 (CALC)); CARBON DIOXIDE < 5 mmol/l (22-30)
--- NOTE | 2020-10-16 04:00 | NUR ---
BS BY ACCU CHECK 306, INSULIN GTT INCREASED TO 4 UNITS/HR. VSS. PATIENT RESTING WITH EYES CLOSED, AWAKENS EASILY TO NAME.
[2020-10-16 06:15] LABS: BASO% 0 % (0-3); EOS% 0 % (0-8); HEMATOCRIT 43.8 % (39.0-50.0); HEMOGLOBIN 14.8 g/dl (14.0-18.0); IMMATURE GRANULOCYTES 1.6 % (0.0-5.0); LYMPH% 7 % (15-41); MEAN CORPUSCULAR HGB 30.4 pG CALC (26.0-32.0); MEAN CORPUSCULAR HGB CONC 33.8 g/dL CAL (32.0-36.0); MONO% 11 % (2-13); NEUT# 9.72 thou/uL (1.82-7.42); NEUT% 81 % (42-76); RED BLOOD COUNT 4.87 mill/uL (4.70-6.10); RED CELL DISTRI WIDTH 15.8 % (11.5-15.5)
[2020-10-16 06:18] LABS: MEAN CELL VOLUME 89.9 fL CALC (80.0-100.0); PLATELET COUNT 111 thou/uL (130-400)
[2020-10-16 06:32] LABS: ALBUMIN 3.9 g/dL (3.2-5.0); ALKALINE PHOSPHATASE 81 u/l (38-126); BILIRUBIN, TOTAL 0.8 mg/dL (0.0-1.4); BUN 11 mg/dL (9-20); BUN/CREATININE RATIO 9 (12-20 (CALC)); CHLORIDE 109 mmol/l (95-108); CHOLESTEROL HDL RATIO 5.6 (<4.4 (CALC)); CREATININE 1.3 mg/dL (0.7-1.3); GFR > 60 ML/MIN (>=60 (CALC)); GFR FOR AFR.AMER. > 60 ML/MIN (>=60 (CALC)); HDL CHOLESTEROL 52 mg/dL (>=40); POTASSIUM 3.8 mmol/l (3.5-5.1); SGOT/AST 22 u/l (17-59); SODIUM 133 mmol/l (137-146); TOTAL CHOLESTEROL 289 mg/dl (0-199)
[2020-10-16 06:36] LABS: ANION GAP 23 (6-22 (CALC)); CARBON DIOXIDE < 5 mmol/l (22-30); TOTAL PROTEIN 7.1 g/dL (6.3-8.2)
[2020-10-16 06:39] LABS: VLDL CHOLESTROL 185 mg/dl (5-56 (CALC))
[2020-10-16 06:47] LABS: CALCULATED LDLCHOLESTEROL 52 mg/dL (62-129 (CALC)); TOTAL TRIGLYCERIDES 923 mg/dl (30-149)
--- NOTE | 2020-10-16 07:40 | NUR ---
REPORT RECEIVED FROM ALFONZO KOTHAIR. PT RESTING IN BED SEMI FOWLERS WITH EYES CLOSED; DROWSY AND ORIENTED X 3; OPENS EYES TO VERBAL STIMULI. C/O GENERALIZED BODY ACHES AND SORE THROAT. RESPIRATIONS ARE EVEN AND UNLABORED ON OXYGEN 2L VIA NC; LUNGS INITIALLY WITH EXPIRATORY RHONCHI ANTERIORLY THAT CLEARS WITH COUGHING; LUNGS CLEAR THROUGHOUT. RIJ APPEARS HEALTHY; DSG CDI. INSULIN GTT INFUSING AT 3 UNITS/HR AND D5 1/2 NS AT 125 ML/HR; #20G TO LAC APPEARS HEALTHY AND FLUSHES. PT HAS REDNESS TO FACE AND UPPER CHEST; PT FEELING COLD WITH HOT, MOIST SKIN; AFEBRILE; CIWA SCORE OF 4. SAFETY MEASURES IN PLACE. CALL LIGHT WITHIN REACH.
--- NOTE | 2020-10-16 08:20 | NUR ---
DR. RUDD AT BEDSIDE. NEW ORDERS RECEIVED.
--- NOTE | 2020-10-16 10:06 | NUR ---
IV FLUIDS INCREASED TO 150 ML/HR; SODIUM BICARB WITH POTASSIUM NOW ALSO INFUSING AT 100 ML/HR. INSULIN CONTINUES AT 3 UNITS/HR. BLOOD WORK OBTAINED FROM CENTRAL LINE AND SENT TO LAB.
[2020-10-16 10:44] LABS: ANION GAP 19 (6-22 (CALC)); BUN 15 mg/dL (9-20); BUN/CREATININE RATIO 9 (12-20 (CALC)); CHLORIDE 109 mmol/l (95-108); CREATININE 1.6 mg/dL (0.7-1.3); GFR 50 ML/MIN (>=60 (CALC)); GFR FOR AFR.AMER. > 60 ML/MIN (>=60 (CALC)); POTASSIUM 3.5 mmol/l (3.5-5.1); SODIUM 131 mmol/l (137-146)
[2020-10-16 10:51] LABS: CARBON DIOXIDE 7 mmol/l (22-30)
--- NOTE | 2020-10-16 12:09 | NUR ---
ZOSYN INFUSING; PT CONTINUES TO REST WITH EYES CLOSED; ONLY OPENS EYES WHEN ENGAGED; CIWA SCORE OF 0; PT NOW RECEIVING LIBRIUM SCHEDULED EVERY 8 HOURS. NO CHANGES MADE TO DRIPS AFTER SCHEDULED CH7. WILL CONTINUE TO MONITOR.
--- NOTE | 2020-10-16 14:15 | NUR ---
SCHEDULED BLOOD DRAWN AND SENT TO LAB. PT CONTINUES TO C/O SORE THROAT, NO NOTED COUGH; TONSILS ARE RED AND SWOLLEN; PT HAS TENDER AND SWOLLEN ANTERIOR CERVICAL LYMPH NODES. TEMPERATURE IS CURRENTLY 99.0. MD NOTIFIED. NEW ORDER RECEIVED.
[2020-10-16 14:40] LABS: CREATININE 1.9 mg/dL (0.7-1.3); POTASSIUM 3.3 mmol/l (3.5-5.1)
--- NOTE | 2020-10-16 17:46 | NUR ---
UP TO CHAIR FOR ASSISTED BATH WITH LINEN CHANGE; LINEN AND GOWN MOIST WITH SWEAT. VOIDED 800ML OF CLEAR YELLOW URINE IN URINAL. CHLORASEPTIC THROAT LOZENGE GIVEN FOR SORE THROAT.
[2020-10-16 18:22] LABS: CREATININE 2.2 mg/dL (0.7-1.3); POTASSIUM 2.9 mmol/l (3.5-5.1)
--- NOTE | 2020-10-16 18:40 | NUR ---
NEW ORDER RECEIVED FROM DR. RUDD AFTER LAST BLOOD DRAW. PT PROVIDED DINNER TRAY. STATES THAT HE IS FEELING BETTER AND IS BREATHING EASIER; REPORTS THAT HE FEELS LIKE HE SLEPT GOOD TODAY. MORE ALERT AND ORIENTED X 3. REMAINS UP IN BEDSIDE CHAIR WATCHING TV. REORIENTED TO CALL LIGHT AND PLACED WITHIN REACH.
--- NOTE | 2020-10-16 20:20 | NUR ---
PATIENT IS AWAKE, ORIENTED X4. CIWA SCORE 0. NO COMPLAINTS OF PAIN. ON RA, O2 SAT GREATER THAN 95%. VS WNL, NO SOB NOTED, RESPIRATION RATE 21-25 RESPS./MIN. NURSE ASSESSMENT PERFORMED. PATIENT SITS IN RECLINER, EATS ALL OF HIS MEAL. REQUESTS WATER, REPORTS HE WAS VERY HUNGRY. WAS EDUCATED ABOUT DIABTES AND DRINKING ALCOHOL. REPORTS HE DRINKS 2-3 BEERS PER DAY AND UP TO 7 ON THE WEEKENDS. RIJ TRIPLE LUMEN INTACT, NEW IV FLUIDS STARTED NS WITH 20 MEQ OF POTASSIUM. INSULIN DRIP TITRATED TO 4 UNITS/HR FOR BS 377 MG/DL. LAC 2O G IV INTACT.
--- NOTE | 2020-10-16 21:43 | NUR ---
GLUCOSE ORDERED DUE TO ACCUCHECK MACHINE READS CRITICALLY HIGH. INSULIN DRIP TITRATED TO 5 UNITS/HR.
--- NOTE | 2020-10-16 21:44 | NUR ---
PATIENT WAS ASSISTED STANDBY BACK TO BED. NO ACUTE DISTRESS SHOWN. NO COMPLAINTS, ICED WATER PROVIDED, VOIDS YELLOW/CLEAR URINE IN URINAL. CALL LIGHT WITHIN REACH.
[2020-10-16 21:58] LABS: CREATININE 2.4 mg/dL (0.7-1.3); POTASSIUM 3.1 mmol/l (3.5-5.1)
--- NOTE | 2020-10-16 22:15 | NUR ---
CALLED AND SPOKE TO DR RUDD REGARDING PATIENT'S CH-7 LABWORK RESULTS AND ALSO GLUCOSE CRITICALLY HIGH 472 MG/DL. PER DR RUDD KEEP PATIENT ON INSULIN DRIP PROTOCOL ONLY. IF BS IS LESS THAN 200 MG/DL THAN INSULIN DRIP CAN BE TURNED OFF.
[2020-10-17] VITALS (16 sets, daily range): BP systolic 93–117; BP diastolic 51–83
--- NOTE | 2020-10-17 00:02 | NUR ---
PATIENT IS AWAKE. NO COMPLAINTS OF PAIN. REPORTS HE IS HUNGRY, NOTIFIED HIM HIS BLOOD SUGARS ARE STILL HIGH AND WE WILL BE CHECKING THROUGH THE NIGHT AND IF BS GOES LOWER THAN WE CAN PROVIDE A SNACK, PATIENT AGREES. ALL VS WNL, AFEBRILE. CALL LIGHT WITHIN REACH.
--- NOTE | 2020-10-17 02:01 | NUR ---
PATIENT IS AWAKE, NO COMPLAINTS OR NEEDS AT THIS TIME. CALL LIGHT WITHIN REACH.
--- NOTE | 2020-10-17 04:12 | NUR ---
PATIENT AWAKENS EASILY WITH VERBAL STIMULI, NO ACUTE DISTRESS SHOWN. AFEBRILE, VS WNL. CALL LIGHT WITHIN REACH.
--- NOTE | 2020-10-17 05:50 | NUR ---
PATIENT AWAKENS EASILY, IV ANTIBITOIC NFUSING, ABLE TO SWALLOW LIBRIUM, PROVIDED A SNACK AND JUICE THIS MORNING, ATE 100%. ALL VITALS WNL. NO COMPLAINTS OR PAIN AT THIS TIME. CALL LIGHT WITHIN REACH.
--- NOTE | 2020-10-17 07:48 | NUR ---
PT LAYING IN BED. A&O X3. NO DISTRESS NOTED. PT C/O OF SLIGHT BUTLER 2/10. CIWA SCORE OF 1. PT DENIES ANY NAUSEA AT THIS TIME. NO TREMORS NOTED. ACCUCHECK THIS MORNING OF 352. PT REPORTS TO BE FEELING A LOT BETTER. CURRENTLY SR 91 ON MONITOR. ASSESSMENT COMPLETED. DISCUSSED POC. CALL LIGHT LEFT WITHIN REACH.
--- NOTE | 2020-10-17 08:43 | NUR ---
DR RUDD AT BEDSIDE
--- NOTE | 2020-10-17 10:00 | NUR ---
ACCUCHECK OF 585. DR RUDD NOTIFIED OF RESULTS.
--- NOTE | 2020-10-17 10:20 | NUR ---
ORDER REC TO INITIATE INSULIN GTT AGAIN ON PT.
[2020-10-17 11:57] LABS: IMMATURE GRANULOCYTES 0.6 % (0.0-5.0); MEAN CELL VOLUME 88.1 fL CALC (80.0-100.0); MEAN CORPUSCULAR HGB 30.1 pG CALC (26.0-32.0); MEAN CORPUSCULAR HGB CONC 34.2 g/dL CAL (32.0-36.0); NEUT# 3.94 thou/uL (1.82-7.42); RED BLOOD COUNT 4.05 mill/uL (4.70-6.10); RED CELL DISTRI WIDTH 16.8 % (11.5-15.5)
[2020-10-17 12:06] LABS: HEMATOCRIT 35.7 % (39.0-50.0); HEMOGLOBIN 12.2 g/dl (14.0-18.0)
[2020-10-17 12:26] LABS: POTASSIUM 3.2 mmol/l (3.5-5.1)
[2020-10-17 12:35] LABS: CREATININE 3.4 mg/dL (0.7-1.3)
--- NOTE | 2020-10-17 15:22 | NUR ---
INSULIN DRIP TITRATED DOWN TO 3U/HR. WITH AN ACCUCHECK OF 260.
--- NOTE | 2020-10-17 16:03 | NUR ---
GLUCOSE 265, INSULING GTT REMAINS AT 3U/HR
[2020-10-17 16:26] LABS: CREATININE 3.4 mg/dL (0.7-1.3); POTASSIUM 2.7 mmol/l (3.5-5.1)
--- NOTE | 2020-10-17 16:35 | NUR ---
D CINDA LINARESN NOTIFIED OF K LEVEL OF 2.7. ORDERS REC FOR 40 MEQ POTASSIUM IV. ORDER READ BACK, WRITTEN AND FAXED TO PHARMACY.
--- NOTE | 2020-10-17 16:36 | NUR ---
ATTEMPT MADE TO PLACE CONSULT WITH DR NAVARRO. NO ANSWER, VOICEMAIL LEFT
--- NOTE | 2020-10-17 16:57 | NUR ---
ACCUCHECK 224, INSULIN GTT KEPT AT 3U/HR. PER D CINDA VILLEGAS CHANGE IV FLUIDS TO D5NS @ 125 ML/HR.
--- NOTE | 2020-10-17 18:11 | NUR ---
ACCU CHECK 240, INSULIN GTT REMAINS AT 3U/HR
--- NOTE | 2020-10-17 19:22 | NUR ---
PATIENT IS AWAKE, CONVERSATES, ORIENTED X4. POC DISCUSSED. NURSE ASSESSMENT PERFORMED. ALL VITALS WNL. NO COMPLAINTS OF PAIN. ASKED IF FAMILY COULD BRING DIET DRINKS TO HIM, I NOTIFIED HIM THEY ARE ABLE TO AND TO DRINK WATER WELL. RIJ TRIPLE LUMEN INTACT, BROWN LUMEN RETURNS BLOOD PROPERLY. CIWA SCORE 0. POTASSIUM CHLORIDE 20 MEQ IV INFUSING NOW AT 50 ML/HR. D5NS INFUSING AT 125 ML/HR. URINE LIGHT YELLOW/CLEAR. CALL LIGHT WITHIN REACH.
--- NOTE | 2020-10-17 20:39 | NUR ---
BLOOD DRAWN FOR CH7 DUE. INSTRUCTED WILL NEED A URINE SPECIMEN.
[2020-10-17 20:59] LABS: CREATININE 3.4 mg/dL (0.7-1.3); POTASSIUM 3.3 mmol/l (3.5-5.1)
--- NOTE | 2020-10-17 21:30 | NUR ---
BEDTIME MEDICATIONS PROVIDED. NO ACUTE DISTRESS SHOWN. OFFERED A BED BATHE, AGREES.
--- NOTE | 2020-10-17 21:46 | NUR ---
PATIENT NOW SITS ON SIDE OF BED, WASHING HIMSELF UP WITH WARM WASH CLOTHS. NO ACUTE DISTRESS SHOWN.
--- NOTE | 2020-10-17 22:12 | NUR ---
PATIENT WAS ABLE TO WASH HIMSELF, WASHED HIS TEETH. NO ACUTE DISTRESS SHOWN. NOW LAYS IN MCCRACKEN'S. ALL VS WNL. INSULIN DRIP TITRATED TO 2 UNITS/HR FROM 3 UNITS/HR. UA WAS COLLECTED.
[2020-10-18] VITALS (12 sets, daily range): BP systolic 91–121; BP diastolic 56–88
--- NOTE | 2020-10-18 00:09 | NUR ---
PATIENT AWAKENS EASILY WHEN SPOKEN TO, BS CHECKED, NO TITRTATION PERINSULIN DRIP PROTOCOL. BLOOD DRAWN FROM [facility] FOR CH7 DUE. NO COMPLAINTS OR NEEDS AT THIS TIME. VS WNL. CALL LIGHT WITHIN REACH.
[2020-10-18 00:52] LABS: CREATININE 3.4 mg/dL (0.7-1.3); POTASSIUM 2.9 mmol/l (3.5-5.1)
--- NOTE | 2020-10-18 02:39 | NUR ---
PATIENT AWAKENS EASILY WHEN SPOKEN TO. NO ACUTE DISTRESS SHOWN. CALL LIGHT WITHIN REACH.
[2020-10-18 04:21] LABS: HEMATOCRIT 35.4 % (39.0-50.0); IMMATURE GRANULOCYTES 0.4 % (0.0-5.0); MEAN CELL VOLUME 88.9 fL CALC (80.0-100.0); MEAN CORPUSCULAR HGB 30.2 pG CALC (26.0-32.0); MEAN CORPUSCULAR HGB CONC 33.9 g/dL CAL (32.0-36.0); NEUT# 2.97 thou/uL (1.82-7.42); RED BLOOD COUNT 3.98 mill/uL (4.70-6.10); RED CELL DISTRI WIDTH 17.2 % (11.5-15.5)
[2020-10-18 04:43] LABS: CREATININE 3.4 mg/dL (0.7-1.3); POTASSIUM 2.8 mmol/l (3.5-5.1)
[2020-10-18 04:47] LABS: ALBUMIN 2.9 g/dL (3.2-5.0)
--- NOTE | 2020-10-18 06:02 | NUR ---
CALLED AND SPOKE TO JET LOO APRN TO NOTIFY OF ABG RESULTS FROM THIS MORNING WELL POTASSIUM LEVELS THIS MORNING, NO NEW ORDERS GIVEN.
--- NOTE | 2020-10-18 06:40 | NUR ---
PT RESTING COMFORTABLY ON RA. NAD. VSS.
[2020-10-18 08:38] LABS: CREATININE 3.4 mg/dL (0.7-1.3); POTASSIUM 2.7 mmol/l (3.5-5.1)
--- NOTE | 2020-10-18 09:00 | NUR ---
PT SEEN AWAKE, ALERT, ORIENTED X 3. LUNGS CLEAR, RA. PT ON INSULIN DRIP, ADJUSTED HOURLY NEEDED. DR RUDD IN TO SEE PT, NEW ORDERS RECEIVED. NO EVIDENCE OF ALCOHOL WITHDRAWAL. DIET CHANGED TO ALLOW SOLID FOODS, PT APPRECIATIVE. K RIDERS IN PROGRESS.
[2020-10-18 13:36] LABS: CREATININE 3.4 mg/dL (0.7-1.3); POTASSIUM 3.2 mmol/l (3.5-5.1)
--- NOTE | 2020-10-18 16:29 | NUR ---
BLOOD SUGAR AT 1500 WAS 145, SO INSULIN DRIP WAS STOPPED. AT 1600 IT WAS 117. NO ALCOHOL WITHDRAWAL SYMPTOMS.
[2020-10-18 16:30] LABS: CREATININE 3.5 mg/dL (0.7-1.3); POTASSIUM 3.4 mmol/l (3.5-5.1)
--- NOTE | 2020-10-18 19:30 | NUR ---
awake. denies distress. cardiac exercise physiologist shows sinus rhythm pvcs hr 80. #20 lac. 1/2ns infusing @ 125cchr. drinks large amounts of liquids. voids large amounts pale yellow urine. rij tlc in place & flushes well. fall precautions cont.
--- NOTE | 2020-10-18 20:00 | NUR ---
blood drawn & sent to lab.
[2020-10-18 20:33] LABS: CREATININE 3.3 mg/dL (0.7-1.3); POTASSIUM 3.2 mmol/l (3.5-5.1)
--- NOTE | 2020-10-18 22:00 | NUR ---
talking frequently on cell phone. no distress.
[2020-10-19] VITALS (19 sets, daily range): BP systolic 96–121; BP diastolic 58–90
--- NOTE | 2020-10-19 00:01 | NUR ---
blood drawn & sent to lab.
[2020-10-19 00:42] LABS: CREATININE 3.3 mg/dL (0.7-1.3); POTASSIUM 3.5 mmol/l (3.5-5.1)
--- NOTE | 2020-10-19 02:00 | NUR ---
awakens easily. denies distress. maitre d' shows sinus rhythm hr 72.
--- NOTE | 2020-10-19 04:00 | NUR ---
blood drawn & sent to lab.
[2020-10-19 05:07] LABS: HEMOGLOBIN 11.8 g/dl (14.0-18.0); IMMATURE GRANULOCYTES 0.2 % (0.0-5.0); MEAN CORPUSCULAR HGB 30.3 pG CALC (26.0-32.0); MEAN CORPUSCULAR HGB CONC 33.7 g/dL CAL (32.0-36.0); NEUT# 2.3 thou/uL (1.82-7.42); RED BLOOD COUNT 3.89 mill/uL (4.70-6.10); RED CELL DISTRI WIDTH 16.7 % (11.5-15.5)
[2020-10-19 05:31] LABS: CREATININE 3.4 mg/dL (0.7-1.3); POTASSIUM 3.1 mmol/l (3.5-5.1)
[2020-10-19 05:33] LABS: ALBUMIN 2.8 g/dL (3.2-5.0); BILIRUBIN, TOTAL 0.5 mg/dL (0.0-1.4); CREATININE 3.4 mg/dL (0.7-1.3); POTASSIUM 3.1 mmol/l (3.5-5.1); TOTAL PROTEIN 5.4 g/dL (6.3-8.2)
--- NOTE | 2020-10-19 06:00 | NUR ---
awakens easily. denies distress. ivf infusing well.
--- NOTE | 2020-10-19 07:41 | NUR ---
Recieved report from meat service team member. pt alert/oriented x3, denies any complaints at this time. accucheck at 7 was 240 will draw labs at 8 for the every 4 hour lab draw.
[2020-10-19 08:51] LABS: CREATININE 3.5 mg/dL (0.7-1.3); POTASSIUM 3.2 mmol/l (3.5-5.1)
--- NOTE | 2020-10-19 09:48 | NUR ---
PT REPORT GIVEN TO DR. ROSE PER TELEPHONE, NO NEW ORDERS AT THIS TIME. ACCCHECK AT 7 WAS 20, ACCUCHECK AT 8 207, ACCUCHECK AT 9 250
--- NOTE | 2020-10-19 09:50 | NUR ---
PT ALERT/ORIENTED X3, TALKING ON PHONE, NO COMPLAINTS AT THIS TIME, WHILE TALKING TO PT, HE STATES HE USED TO BE ON DIABETES MEDICATIONS BUT QUIT AWHILE AGO, AND STARTED DRINKING FAIRLY HEAVILY, AND JUST NEVER STARTED ON MEDICATIONS AGAIN. STATES HE HAS NOTICED IN LAST SEVERAL MONTHS HAS HAD INCREASING THIRST BUT DIDNT THINK ANYTHING ABOUT IT.
--- NOTE | 2020-10-19 11:51 | NUR ---
PT SITTING UP IN BED EATING LUNCH, WALKED INTO ROOM APPROX 10 MIN AGO, AND PT HAD A [employer] SAC THAT HE WAS EATING A SANDWICH OUT OF. ADVISED PT THAT HE COULD NOT EAT ANYTHING WE WERENT MONITERING.
--- NOTE | 2020-10-19 12:30 | NUR ---
CHANGED FLUIDS TO D51/2 WITH 40 KCL/\@ 125CC/HR PER INSULIN DRIP PROTOCOL. DR. ROSE NOTIFIED. URINE SPECIMEN OBTAINED AND SENT TO LAB
[2020-10-19 13:26] LABS: URINE BILIRUBIN - DIPSTICK NEGATIVE (NEGATIVE); URINE BLOOD DIPSTICK TRACE-INTACT (NEGATIVE); URINE CLARITY CLEAR; URINE COLOR YELLOW; URINE GLUCOSE - DIPSTICK 500 mg/dL (NEGATIVE); URINE KETONE NEGATIVE (NEGATIVE); URINE LEUK ESTERASE NEGATIVE (Negative); URINE NITRITE - DIPSTICK POSITIVE (Negative); URINE PH 5.5 (4.5-8.0); URINE PROTEIN - DIPSTICK NEGATIVE (NEG-TRACE); URINE UROBILINOGEN - DIPSTICK 0.2 E.U./dL (0.2)
[2020-10-19 13:48] LABS: CREATININE 3.3 mg/dL (0.7-1.3); POTASSIUM 3.4 mmol/l (3.5-5.1)
[2020-10-19 14:06] LABS: URINE RBC 0-2 RBC/hpf (0-5); URINE SQUAMOUS EPITHELIAL CELL RARE EPI/hpf (0-FEW); URINE WBC 0-2 WBC/hpf (0-5)
[2020-10-19 14:07] LABS: URINE YEAST MODERATE hpf
--- NOTE | 2020-10-19 14:48 | NUR ---
PT RESTING QUIETLY ON BED, NO COMPLAINTS AT THIS TIME. VITAL SIGNS STABLE. CALL LIGHT WITHIN REACH.
[2020-10-19 16:37] LABS: CREATININE 3.5 mg/dL (0.7-1.3); POTASSIUM 3.4 mmol/l (3.5-5.1)
--- NOTE | 2020-10-19 17:26 | NUR ---
CHANGED FLUIDS TO 1/2NS @ 125CC/HR. PER PROTOCOL. ACCUCHECK IS 275. PT TALKING ON PHONE, DENIES ANY COMPLAINTS,VITAL SIGNS STABLE. INSULIN DRIP AT 3 FOR ACCUCHECK OF 275.
--- NOTE | 2020-10-19 18:40 | NUR ---
PT RESTING QUIETLY ON BED, NO COMPLAINTS AT THIS TIME
--- NOTE | 2020-10-19 20:00 | NUR ---
blood drawn & sent to lab.
--- NOTE | 2020-10-19 20:10 | NUR ---
awake. denies distress. monitor car operator shows sinus rhythm hr 86. #20 lac saline lock. tij tlc in place. 1/2 ns infusing @ 125cchr, insulin gtt infusing @ 3u/hr. po fluids taken well. voids per urinal. fall precautions cont.
[2020-10-19 21:01] LABS: CREATININE 3.6 mg/dL (0.7-1.3); POTASSIUM 3.1 mmol/l (3.5-5.1)
--- NOTE | 2020-10-19 22:00 | NUR ---
awake. talking on cell phone. cardiac tech shows sinus rhythm hr 86.
[2020-10-20] VITALS (11 sets, daily range): BP systolic 88–112; BP diastolic 52–77
--- NOTE | 2020-10-20 00:01 | NUR ---
awahens easily. denies distress. ivf infusing well.
--- NOTE | 2020-10-20 02:00 | NUR ---
awakens easily. denies distress. secured entrance monitor shows sinus rhythm hr 74.
--- NOTE | 2020-10-20 04:00 | NUR ---
blood draw & urine spec collected & sent to lab.
[2020-10-20 06:01] LABS: CREATININE 3.6 mg/dL (0.7-1.3); MAGNESIUM 1.8 mg/dL (1.6-2.3); POTASSIUM 2.7 mmol/l (3.5-5.1)
--- NOTE | 2020-10-20 07:07 | NUR ---
PT REPORT RECEIVED FROM UTILITY WORKER PRODUCTION. PT SITTING UP IN BED, VAPOTHERM REMAINS ON, NO COMPLAINTS FROM PT. PT APPEARS TO BE SLIGHTLY INCREASED LABORED BREATHING.
--- NOTE | 2020-10-20 07:15 | NUR ---
REPORT RECEIVED FROM GRAVITY METER OPERATOR. PT SITTING UP IN BED TALKING ON CELLPHONE, NO SOB, NO COMPLAINTS AT THIS TIME. VITAL SIGNS STABLE. INSULIN GTT WAS SHUT OFF DURING NIGHT, PTS ACCUCHECK AT 7 WAS 163, REQUESTING MORE ICE WATER.
[2020-10-20 09:13] LABS: ALBUMIN 3.3 g/dL (3.2-5.0); BILIRUBIN, TOTAL 0.7 mg/dL (0.0-1.4); CREATININE 3.4 mg/dL (0.7-1.3); POTASSIUM 3.1 mmol/l (3.5-5.1); TOTAL PROTEIN 6.1 g/dL (6.3-8.2)
--- NOTE | 2020-10-20 09:22 | NUR ---
RESTARTED INSULIN GTT RESTARTED AT 3 PER DKA ORDER.
--- NOTE | 2020-10-20 10:27 | NUR ---
pts glucose level increasing, adjusting insulin drip per protocol. pt remains symptom free of any complaint. sitting up in bed watching tv.
--- NOTE | 2020-10-20 12:41 | NUR ---
PT SITTING UP IN BED, TALKING ON PHONE, ADVISED OF PLAN OF CARE THAT DOCTOR IS ORDERING. ADVISED THAT AT THIS TIME, FAMILY IS NOT ALLOWED TO BRING ANYTHING IN TO HIM TO EAT UNTIL GLUCOSE IS STABILIZED.
--- NOTE | 2020-10-20 16:24 | NUR ---
PT SLEEPING AT THIS TIME, VITAL SIGNS STABLE. DENIES ANY COMPLAINT BEFORE FALLING ASLEEP, CALL LIGHT WITHIN REACH, SIDE RAILS UP. IV FLUIDS INFUSING
[2020-10-20 17:46] LABS: ALBUMIN 3.2 g/dL (3.2-5.0); BILIRUBIN, TOTAL 0.7 mg/dL (0.0-1.4); CREATININE 3.3 mg/dL (0.7-1.3); POTASSIUM 3.7 mmol/l (3.5-5.1)
--- NOTE | 2020-10-20 18:09 | NUR ---
PT SITTING UP IN BED EATING AT THIS TIME, SODIUM BICARB STILL INFUSING, PT VITAL SIGNS STABLE.
[2020-10-20 19:57] LABS: HEMATOCRIT 38.4 % (39.0-50.0); HEMOGLOBIN 11.7 g/dl (14.0-18.0); MEAN CORPUSCULAR HGB 30.1 pG CALC (26.0-32.0); MEAN CORPUSCULAR HGB CONC 30.5 g/dL CAL (32.0-36.0); RED BLOOD COUNT 3.89 mill/uL (4.70-6.10); RED CELL DISTRI WIDTH 17.1 % (11.5-15.5)
[2020-10-20 19:59] LABS: MEAN CELL VOLUME 98.7 fL CALC (80.0-100.0)
--- NOTE | 2020-10-20 20:00 | NUR ---
PT ALERT AND ORIENTED. LAYING IN BED SODIUM BIC. DRIP CONTINUES. PT HAS NO COMPLAINT OF PAIN. NO COUGH. IV SITE IN L AC AND RIGHT JUG TRIPLE LUMEN FLUSH IS PATENT. PT FAMILY SENT UP CUCUMBER WATER AND GATORADE ZERO. CALL LIGHT AND TABLE WITHIN PT REACH. WILL CONTINUE TO MONITOR
--- NOTE | 2020-10-20 22:18 | NUR ---
PT SUGAR IS 459. DR INFORMED AND INSULIN ORDERS WAS NEVER PUT IN BUT NOW IN
[2020-10-21] VITALS (11 sets, daily range): BP systolic 86–122; BP diastolic 55–81
--- NOTE | 2020-10-21 | NUR ---
PT SLEEPING PEACEFULLY. EYES CLOSED. CALL LIGHT WITHIN RANGE BED IN LOWEST POSITION.
--- NOTE | 2020-10-21 02:00 | NUR ---
PT REMAINS SLEEPING PEACEFULLY. VITALS STABLE. IV FLUIDS CONTINUE. CALL LIGHT WITHIN RANGE
--- NOTE | 2020-10-21 04:00 | NUR ---
LAB ARE GETTING DRAWN FROM PT CENTRAL LINE IN HIS NECK. PT AWAKE. URINAL EMPTIED. NO COMPLAINT OF PAIN PT REMAINS IN HIS BED. WILL CONTINUE TO MONITOR
[2020-10-21 04:54] LABS: MEAN CORPUSCULAR HGB 30.3 pG CALC (26.0-32.0); MEAN CORPUSCULAR HGB CONC 33.8 g/dL CAL (32.0-36.0); RED BLOOD COUNT 3.3 mill/uL (4.70-6.10); RED CELL DISTRI WIDTH 15.1 % (11.5-15.5)
[2020-10-21 04:55] LABS: HEMATOCRIT 29.6 % (39.0-50.0); MEAN CELL VOLUME 89.7 fL CALC (80.0-100.0)
[2020-10-21 05:11] LABS: CREATININE 2.6 mg/dL (0.7-1.3); MAGNESIUM 1.6 mg/dL (1.6-2.3)
--- NOTE | 2020-10-21 06:26 | NUR ---
PT AWAKE AND ALERT. URINAL EMPIED OUT. DENIES PAIN. IV FLUIDS CONTINUE RUNNING. WATER PITCHER FULLED WITH ICE WATER AGAIN WILL CONTINUE TO MONITOR
--- NOTE | 2020-10-21 09:22 | NUR ---
PT AWAKE, ALERT, ORIENTED X3. LUNGS CLEAR, RA. PT ASKING ABOUT SHOWER IN M/S, WILL ATTEMPT TO FACILITATE. BS ELEVATED TODAY, TREATED ORDERED BY DR ROSE.
--- NOTE | 2020-10-21 11:05 | NUR ---
IV REMOVED FROM LAC, NOT NEEDED ANYMORE.
--- NOTE | 2020-10-21 11:44 | NUR ---
PT'S BLOOD SUGAR AGAIN REQUIRED DOCTOR CONTACT PER 554 READING. INSULIN PROVIDED PER ORDER. PT TO BE TAKEN TO MED/SURG FOR SHOWER TODAY.
--- NOTE | 2020-10-21 15:58 | NUR ---
PT FEELS BETTER AFTER SHOWER IN MED/SURG TODAY. BLOOD DRAWN FOR RENAL PANEL WITHOUT DIFFICULTY.
[2020-10-21 16:22] LABS: ALBUMIN 3.4 g/dL (3.2-5.0); CREATININE 2.8 mg/dL (0.7-1.3)
--- NOTE | 2020-10-21 18:41 | NUR ---
NO DISTRESS NOTED PT SEEN RESTING IN THE BED.
--- NOTE | 2020-10-21 19:48 | NUR ---
PATIENT IS AWAKE, WATCHES VIDEOS ON HIS CELLPHONE. ORIENTED X4. ON RA, O2 SAT GREATER THAN 95%, NO SOB NOTED, NO TACHYPNEA NOTED. NURSE ASSESSMENT PERFORMED. POC DISCUSSED. RIJ TRIPLE LUMEN INTACT, FLUSHES AND RETURNS BLOOD PROPERLY, 0.45% NS AT 125 ML/HR. NO COMPLAINTS OF PAIN, REQUESTS MORE ICED WATER. SR ON TELEMETRY, HR 80'S. AFEBRILE. EXPRESSES HOW GOOD HE FELT BEING ABLE TO TAKE A SHOWER TODAY. SELF REPOSITIONS. CALL LIGHT WITHIN REACH.
--- NOTE | 2020-10-21 21:28 | NUR ---
PATIENT ABLE TO SWALLOW MEDICATIONS. NO ACUTE DISTRESS SHOWN. TALKATIVE. CALL LIGHT WITHIN REACH. NO COMPLAINTS OR NEEDS AT THIS TIME.
--- NOTE | 2020-10-21 22:55 | NUR ---
PATIENT AWAKENS WITH VERBAL STIMULI. NO ACUTE DISTRESS SHOWN.
[2020-10-22] VITALS (12 sets, daily range): BP systolic 90–108; BP diastolic 52–76
--- NOTE | 2020-10-22 00:42 | NUR ---
PATIENT IS AWAKE, REPOSITIONS, NO ACUTE DISTRESS SHOWN, URINAL EMPTIED, UEINE PALE YELLOW/CLEAR.
--- NOTE | 2020-10-22 04:35 | NUR ---
PATIENT AWAKENS EASILY, NO COMPLAINTS. URINAL EMPTIED. CALL LIGHT WITHIN REACH. AFEBRILE.
--- NOTE | 2020-10-22 05:20 | NUR ---
RIJ TRIPLE LUMEN INTACT, ALL LUMENS FLUSH AND RETURN BLOOD PROPERLY. URINAL EMPTIED, LIBRIUM GIVEN SCHEDULED. NO ACUTE DISTRESS SHOWN, MORE ICED WATER PROVIDED.
[2020-10-22 06:14] LABS: CREATININE 2.6 mg/dL (0.7-1.3); POTASSIUM 3.9 mmol/l (3.5-5.1)
--- NOTE | 2020-10-22 08:45 | NUR ---
PT ALERT AND ORIENTED X 3. PT NEGATIVE ASSESSMENT PER CLEAR LUNGS, AMBULATORY, SKIN INTACT. BLOOD SUGARS REMAIN ELEVATED, PHYSICIAN AWARE.
--- NOTE | 2020-10-22 11:28 | NUR ---
PT OKAYED TO TRANSFER TO MED/SURG BY DR ROSE, PENDING BED AVAILABILITY. 24 HOUR URINE STARTED AT 1130 THIS MORNING, TO COLLECT SPECIMEN UNTIL 1130 TOMORROW.
--- NOTE | 2020-10-22 16:11 | NUR ---
PT WITHOUT CHANGE HE RESTS IN THE BED, NO WITHDRAWAL SYMPTOMS, NO COMPLAINTS.
--- NOTE | 2020-10-22 19:15 | NUR ---
PATIENT IS AWAKE, ORIENTED X4, LAYS IN HIGH MCCRACKEN'S. CIWA 0. ON RA, O2 SATS GREATER THAN 95%, NO SOB NOTED, NO RESPIRATORY DISTRESS NOTED. NURSE ASSESSMENT PERFORMED. RIJ TRIPLE LUMEN INTACT, ALL LUMENS FLUSH AND RETURN BLOOD PROPERLY. SR ON TELEMETRY, HR 70'S. VS WNL. URINE IS PALE YELLOW/CLEAR, WAS EMPTIED INTO 24 HR URINE SPECIMEN BOTTLE ON ICE. POC DISCUSSED. SELF REPOSITIONS. NO COMPLAINTS OF PAIN, ICE WATER PROVIDED, REQUESTS TO WASH UP TODAY, AGREES TO DO IT LATER TONIGHT. CALL LIGHT WITHIN REACH.
--- NOTE | 2020-10-22 21:15 | NUR ---
PATIENT ABLE TO BATHE HIMSELF WITH WASHCLOTHS, SITS IN RECLINER, BRUSHES HIS TEETH, HAS A BOWEL MOVEMENT, LG/LIGHT BROWN/FORMED. NO ACUTE DISTRESS SHOWN. BED LINEN CHANGED. ABLE TO TOLERATES BEDTIME MEDICATIONS, ABLE TO SWALLOW MEDICATIONS WITHOUT DIFFICULTY. NOW LAYS BACK IN BED. CALL LIGHT WITHIN REACH. ICED WATER PROVIDED, URINAL AT BEDSIDE.
[2020-10-23] VITALS (9 sets, daily range): BP systolic 99–117; BP diastolic 62–77
--- NOTE | 2020-10-23 00:08 | NUR ---
PATIENT RESTS WITH EYES CLOSED, NO ACUTE DISTRESS SHOWN.
--- NOTE | 2020-10-23 01:53 | NUR ---
PATIENT AWAKENS EASILY WITH VERBAL STIMULI. NO ACUTE DISTRESS SHOWN. NO COMPLAINTS OR NEEDS AT THIS TIME. CALL LIGHT WITHIN REACH.
--- NOTE | 2020-10-23 05:04 | NUR ---
PATIENT AWAKENS EASILY WITH VERBAL STIMLUI, NO ACUTE DISTRESS SHOWN. CALL LIGHT WITHIN REACH.
[2020-10-23 06:01] LABS: HEMATOCRIT 29.4 % (39.0-50.0); HEMOGLOBIN 10.1 g/dl (14.0-18.0); MEAN CELL VOLUME 89.9 fL CALC (80.0-100.0); MEAN CORPUSCULAR HGB 30.9 pG CALC (26.0-32.0); MEAN CORPUSCULAR HGB CONC 34.4 g/dL CAL (32.0-36.0); RED BLOOD COUNT 3.27 mill/uL (4.70-6.10); RED CELL DISTRI WIDTH 14.6 % (11.5-15.5)
[2020-10-23 06:21] LABS: ALBUMIN 3.1 g/dL (3.2-5.0); POTASSIUM 3.7 mmol/l (3.5-5.1)
--- NOTE | 2020-10-23 09:23 | NUR ---
PT IS AWAKE, ALERT, ORIENTED X 3. LUNGS CLEAR, RA. BM TODAY. BS 280 THIS MORNING. NO COMPLAINT, NO DISTRESS.
--- NOTE | 2020-10-23 13:37 | NUR ---
PT SEEN BY DR ROSE, DECISION IS TO KEEP ANOTHER DAY AFTER INSULIN IS CHANGED. PT NO CHANGE IN STATUS.
--- NOTE | 2020-10-23 14:50 | NUR ---
PT ARRIVED FROM ICU VIA WC WITH STAFF. IV SITE IS FREE FROM REDNESS OR EDEMA.
--- NOTE | 2020-10-23 16:00 | NUR ---
PT IS RELAXING IN BED WITH NO DISTRESS NOTED. IV SITE IS FREE FROM REDNESS OR EDEMA.
--- NOTE | 2020-10-24 01:41 | NUR ---
PT RESTING QUIETLY WITH HIS EYES CLOSED. NO COMPLAINTS VOICED AT THIS TIME. BEATHING IS EVEN AND UNLABORED. LUNGS SLIGHTLY DIMINISHED AT THIS TIME. HEART SOUNDS WNL. RIJ TRIPLE LUMEN TO RIGHT SIDE OF NECK. ALL THREE LUMENS FLUSH WITHOUT DIFFICULTY. BLOOD SUGAR AT BEDTIME TODAY WAS 228, PT COVERED WITH 3U OF INSULIN. NO S/S OF DISTRESS. WILL MONITOR.
--- NOTE | 2020-10-24 03:23 | NUR ---
PT RESTING QUIETLY IN BED WITH EYES CLOSED. BREATHING EVEN AND UNLABORED. NO S/S OF DISTRESS NOTED. NO COMPLAINTS VOICED. WILL CONTINUE TO MONITOR.
[2020-10-24 04:00] VITALS: BP 100/64
--- NOTE | 2020-10-24 05:43 | NUR ---
PT WAS SLEEPING ON HIS SIDE THIS AM. FLUSHED ALL THREE LUMENS WITHOUT DIFFICULTY, ALL LUMENS GIVE BLOOD RETURN. ADMINSTERED LIBRIUM PER ORDERED. PT TOLERATED WELL. NO COMPLAINTS VOICED AT THIS TIME. WILL MONITOR.
[2020-10-24 05:52] LABS: HEMATOCRIT 29.5 % (39.0-50.0); HEMOGLOBIN 9.8 g/dl (14.0-18.0); IMMATURE GRANULOCYTES 0.3 % (0.0-5.0); MEAN CELL VOLUME 90.8 fL CALC (80.0-100.0); MEAN CORPUSCULAR HGB 30.2 pG CALC (26.0-32.0); MEAN CORPUSCULAR HGB CONC 33.2 g/dL CAL (32.0-36.0); NEUT# 2.79 thou/uL (1.82-7.42); RED BLOOD COUNT 3.25 mill/uL (4.70-6.10); RED CELL DISTRI WIDTH 14.8 % (11.5-15.5)
[2020-10-24 06:12] LABS: CREATININE 1.7 mg/dL (0.7-1.3); MAGNESIUM 1.6 mg/dL (1.6-2.3); POTASSIUM 3.4 mmol/l (3.5-5.1); TOTAL PROTEIN 5.6 g/dL (6.3-8.2)
[2020-10-24 06:26] LABS: BILIRUBIN, TOTAL 0.4 mg/dL (0.0-1.4)
[2020-10-24 07:40] VITALS: BP 95/62
--- NOTE | 2020-10-24 07:40 | NUR ---
ASSESSMENT IS COMPLETED: IV SITE IS FREE FROM REDNESS OR EDEMA. HR IS REG,PULSES ARE STRONG X4, ABD IS SOFT WITH ACTIVE BS. BREATH SOUNDS ARE CLEAR,BILATERALLY. MO C/O SOB,.
[2020-10-24] MEDS ORDERED: K-DUR/KLOR-CON20 MEQ PO (08:24)
[2020-10-24] MEDS ORDERED: PROTONIX40 MG PO (08:30)
--- NOTE | 2020-10-24 11:14 | NUR ---
DISCHARGE INSTRUCTIONS GIVEN AND INTERPRETED BY MERVAT MEJÍA IV SITE TAKEN OUT OF RIJ BY HERMILO MEJÍA/. PT TOLERATED WELL.
--- NOTE | 2020-10-24 11:20 | NUR ---
D/C INSTRUCTIONS GIVEN TO PT IN [place]. PT VERBALIZED UNDERSTANDING. INSTRUCTIONS GIVEN ON LEVEMIR NEW DOSAGE, NEW "SLIDING SCALE DOSAGE" AND HOW TO CHECK BLOOD SUGARS. PT UNDERSTANDS AND ABLE TO TEACH BACK NEW DIRECTIONS. PT ENCOURAGED TO RETURN WITH NEW OR WORSENING SYMPTOMS. PT EDUCATED ON NEW MEDICATIONS. PT INSTRUCTED TO MAKE APPOINTMENT WITH PCP, PT VERBALIZED UNDERSTANDING.
--- NOTE | 2020-10-24 11:56 | NUR ---
PT AMBUALTED OFF THE UNIT FOR DISCHARGE WITH STAFF. FAMILY IN THE PARKING LOT.
--- NOTE | 2020-10-24 12:00 | NUR ---
PT IS GOING HOME WAITING FOR TRANSPORT.
--- NOTE | 2020-10-24 12:00 | NUR ---
Discharge instructions given. Patient verbalizes understanding of same. Discharged in stable condition via Wheelchair to Home with family. All belongings sent with pt.
== END 2020-10-24 11:50 | disposition home or self-care (01) | DRG 637 ==
LOC: ED 10:11 → ED-I 10:33 → ED 10:33 → ED-I 12:09 → ED 12:45 → ICU 12:45 → MS2 10-23 15:00
PROVIDERS: Family Medicine; Internal Medicine Nephrology; Nurse Practitioner; ADMIT Internal Medicine; ATTEND Internal Medicine
PROC: 02HV33Z Insertion of Infusion Device into Superior Vena Cava, Percutaneous Approach (ICD-10-PCS; principal; 2020-10-15)
DX: E11.10 Type 2 diabetes mellitus with ketoacidosis without coma (principal); N17.0 Acute kidney failure with tubular necrosis; G93.40 Encephalopathy, unspecified; E87.1 Hypo-osmolality and hyponatremia; F10.10 Alcohol abuse, uncomplicated; D72.829 Elevated white blood cell count, unspecified; E86.9 Volume depletion, unspecified; I95.9 Hypotension, unspecified; E87.6 Hypokalemia; E86.0 Dehydration; R19.5 Other fecal abnormalities; D64.9 Anemia, unspecified; T38.3X6A Underdosing of insulin and oral hypoglycemic [antidiabetic] drugs, initial encounter; F17.210 Nicotine dependence, cigarettes, uncomplicated; Z79.4 Long term (current) use of insulin; Z91.128 Patient's intentional underdosing of medication regimen for other reason; Z20.822 Contact with and (suspected) exposure to COVID-19
CPT/HCPCS: J1650; J2060; J3475; S0164

== ENCOUNTER 2021-01-21 12:30 | Inpatient (IN) | payer SELFPAY ==
[~2021-01-21] VITALS: Ht 165.1 cm; Wt 73.0 kg
[~2021-01-21 12:30] MED LIST changes: +K-DUR/KLOR-CON20 MEQ PO; +LEVEMIR100 UNIT/M SC; +PROTONIX40 MG PO
--- NOTE | 2021-01-21 12:46 | NUR ---
APPEARS UNCOMFORTABLE AT THIS TIME, VOMITING 3-4 TIMES
--- NOTE | 2021-01-21 13:00 | NUR ---
ALERT ORIENTED, IN TRIAGE ROOM AWAITING BED, CARE BEGAIN
[2021-01-21 14:10] LABS: IMMATURE GRANULOCYTES 1.4 % (0.0-5.0); MEAN CELL VOLUME 91.2 fL CALC (80.0-100.0); MEAN CORPUSCULAR HGB 27.6 pG CALC (26.0-32.0); MEAN CORPUSCULAR HGB CONC 30.3 g/dL CAL (32.0-36.0); NEUT# 17.57 thou/uL (1.82-7.42); RED BLOOD COUNT 6.23 mill/uL (4.70-6.10); RED CELL DISTRI WIDTH 12.1 % (11.5-15.5)
[2021-01-21 14:11] LABS: HEMATOCRIT 56.8 % (39.0-50.0); HEMOGLOBIN 17.2 g/dl (14.0-18.0)
--- NOTE | 2021-01-21 14:29 | NUR ---
NOTIFIED PROVIDER HI GLUCOSE
[2021-01-21 14:52] LABS: BUN 26 mg/dL (9-20); BUN/CREATININE RATIO 15 (12-20 (CALC)); CHLORIDE 93 mmol/l (95-108); CREATININE 1.7 mg/dL (0.7-1.3); ETHYL ALCOHOL 0 mg/dl (0-30); GFR 47 ML/MIN (>=60 (CALC)); GFR FOR AFR.AMER. 57 ML/MIN (>=60 (CALC)); LIPASE 43 u/l (23-300); SGOT/AST 22 u/l (17-59); SODIUM 133 mmol/l (137-146)
[2021-01-21 14:57] LABS: ALBUMIN 5.3 g/dL (3.2-5.0); ALKALINE PHOSPHATASE 127 u/l (38-126); ANION GAP 40 (6-22 (CALC)); BILIRUBIN, TOTAL 0.6 mg/dL (0.0-1.4); POTASSIUM 4.7 mmol/l (3.5-5.1); TOTAL PROTEIN 10.2 g/dL (6.3-8.2)
[2021-01-21 14:58] LABS: CARBON DIOXIDE < 5 mmol/l (22-30)
--- NOTE | 2021-01-21 15:27 | NUR ---
NOTIFIED PROVIDER OF RESULTS TO ACCUCHECK NOTIFIED LAB TO REDRAW
--- NOTE | 2021-01-21 15:43 | NUR ---
CRITICAL LACTIC ACID RECEIVED, NOTIFIED IMMEDIATELY
[2021-01-21 16:00] LABS: URINE BILIRUBIN - DIPSTICK NEGATIVE (NEGATIVE); URINE BLOOD DIPSTICK SMALL (NEGATIVE); URINE COLOR YELLOW; URINE GLUCOSE - DIPSTICK >=1000 mg/dL (NEGATIVE); URINE KETONE >=80 mg/dL (NEGATIVE); URINE LEUK ESTERASE NEGATIVE (NEGATIVE); URINE PH 5.5 (4.5-8.0); URINE PROTEIN - DIPSTICK 30 mg/dL (NEG-TRACE); URINE SPECIFIC GRAVITY >=1.030; URINE UROBILINOGEN - DIPSTICK 0.2 E.U./dL (0.2)
--- NOTE | 2021-01-21 16:05 | NUR ---
TRANSFER CARE TO ROOM 14, MADINA RN, ALERT AND ORIENTED LESS NAUSEA NOTED,
[2021-01-21 16:06] LABS: URINE NITRITE - DIPSTICK NEGATIVE (Negative)
[2021-01-21 16:10] LABS: URINE RBC 0-2 RBC/hpf (0-5)
--- NOTE | 2021-01-21 17:08 | NUR ---
REPORT REC BY MADINA MEJÍA
--- NOTE | 2021-01-21 17:35 | NUR ---
PT TO ROOM 5 VIA STRETCHER ACCOMPANIED BY NURSE. PT ABLE TO TRANFER SELF TO BED. SPOUSE ACCOMPANIED PT WELL. PT IS ALERT AND ORINETED X3. PT IS PRIMARILY MONGOLIAN SPEAKING. WHITE LEAD FILTERER PRESENT. ADMISSION ASSESSMENT COMPLETED. IV PATENT X2. IV BOLUS INFUSING. AWAITING LAB RESULTS FOR FLUID CHANGES TO BE MADE. IV INSULIN INFUSING AT 4UNITS PER HOUR. ACCUCHECK IMMEADIATELY BEFORE TRANSPORT 387 PER ER NURSE. PT ORIENTED TO ROOM AND UNIT. CALL LIGHT IN REACH. WILL CONTINUE TO MONITOR.
[2021-01-21 17:45] VITALS: BP 139/84
[2021-01-21 17:53] LABS: BUN 25 mg/dL (9-20); BUN/CREATININE RATIO 22 (12-20 (CALC)); CREATININE 1.2 mg/dL (0.7-1.3); GFR > 60 ML/MIN (>=60 (CALC)); GFR FOR AFR.AMER. > 60 ML/MIN (>=60 (CALC)); POTASSIUM 4.2 mmol/l (3.5-5.1); SODIUM 137 mmol/l (137-146)
[2021-01-21 17:54] LABS: ANION GAP 31 (6-22 (CALC)); CHLORIDE 105 mmol/l (95-108)
[2021-01-21 17:55] LABS: CARBON DIOXIDE < 5 mmol/l (22-30)
--- NOTE | 2021-01-21 18:20 | NUR ---
PT SITTING UP IN BED EATING PM MEAL. NO DISTRESS NOTED. CALL LIGHT IN REACH. WILL CONTINUE TO MONTIOR.
--- NOTE | 2021-01-21 19:00 | NUR ---
REPORT RECEIVED FROM Kel LEACH RN, CARE OF PT ASSUMED AT THIS TIME.
--- NOTE | 2021-01-21 19:00 | NUR ---
POINT OF CARE GLUCOSE 249mg/DL. INSULIN GTT DECREASED TO 3 UNITS/H.
--- NOTE | 2021-01-21 20:00 | NUR ---
POINT OF CARE GLUCOSE 260mg/dl. NO CHANGES TO INSULIN GTT.
--- NOTE | 2021-01-21 20:10 | NUR ---
PHYSICAL ASSESMENT COMPLETE. SCHEDULED MEDICATION ADMINISTERED. SEE E-MAR. PLAN OF CARE REVIEWED, PT VERBALIZES UNDERSTANDING. CALL DICK WITHIN REACH, AGREES TO CALL PRN.
--- NOTE | 2021-01-21 20:30 | NUR ---
500 ML CLEAR YELLOW URINE EMPTIED FROM URINAL.
--- NOTE | 2021-01-21 21:00 | NUR ---
POINT OF CARE GLUCOSE 261mg/dl. NO CHANGES TO INSULIN GTT.
--- NOTE | 2021-01-21 21:15 | NUR ---
Nicole MCGOWAN FILE CLERK AT BEDSIDE TO DRAW BMP.
[2021-01-21 21:47] LABS: ANION GAP 22 (6-22 (CALC)); BUN 19 mg/dL (9-20); BUN/CREATININE RATIO 24 (12-20 (CALC)); CHLORIDE 107 mmol/l (95-108); CREATININE 0.8 mg/dL (0.7-1.3); GFR > 60 ML/MIN (>=60 (CALC)); GFR FOR AFR.AMER. > 60 ML/MIN (>=60 (CALC)); POTASSIUM 4.1 mmol/l (3.5-5.1); SODIUM 133 mmol/l (137-146)
[2021-01-21 21:54] LABS: CARBON DIOXIDE 8 mmol/l (22-30)
--- NOTE | 2021-01-21 21:54 | NUR ---
CRITICAL CO2 RESULT REPORTED BY Bhumi TREVIÑO. CO2 IS 8. LEVEL IMPROVED. SERUM GLUCOSE 257 mg/DL. K+ 4.1. ANION GAP 18.
--- NOTE | 2021-01-21 22:00 | NUR ---
POINT OF CARE GLUCOSE 244mg/dl. NO CHANGES TO INSULIN GTT.
[2021-01-21 23:00] VITALS: BP 124/67
--- NOTE | 2021-01-21 23:10 | NUR ---
POINT OF CARE GLUCOSE 233mg/dl. NO CHANGES TO INSULIN GTT.
--- NOTE | 2021-01-21 23:56 | NUR ---
550 ML CLEAR YELLOW URINE EMPTIED FROM URINAL.
[2021-01-22] VITALS (16 sets, daily range): BP systolic 107–133; BP diastolic 61–84
--- NOTE | 2021-01-22 | NUR ---
POINT OF CARE GLUCOSE 204mg/dl. NO CHANGES TO INSULIN GTT.
--- NOTE | 2021-01-22 01:48 | NUR ---
Nicole MCGOWAN EXECUTIVE OFFICER IN ROOM TO COLLECT CHEM7.
[2021-01-22 02:19] LABS: BUN 17 mg/dL (9-20); BUN/CREATININE RATIO 23 (12-20 (CALC)); CHLORIDE 109 mmol/l (95-108); CREATININE 0.7 mg/dL (0.7-1.3); GFR > 60 ML/MIN (>=60 (CALC)); GFR FOR AFR.AMER. > 60 ML/MIN (>=60 (CALC)); POTASSIUM 3.9 mmol/l (3.5-5.1); SODIUM 134 mmol/l (137-146)
[2021-01-22 02:20] LABS: ANION GAP 18 (6-22 (CALC)); CARBON DIOXIDE 11 mmol/l (22-30)
--- NOTE | 2021-01-22 02:29 | NUR ---
CHEM 7 RESULTS RECEIVED AND ASSESSED. GLUCOSE 207mg/dl. K+3.9, NA+134, CL-109, C02 11. ANION GAP 14. ANION GAP REMAINS OPEN. IVF CHANGED TO D51/2NS@125ML/H. NO CHANGES TO INSULIN GTT. NEXT CHEM 7 DUE @ 0751.
--- NOTE | 2021-01-22 03:03 | NUR ---
POINT OF CARE GLUCOSE 178mg/dl.INSULIN GTT DECREASED TO 2 UNITS/HOUR.
--- NOTE | 2021-01-22 04:38 | NUR ---
POINT OF CARE GLUCOSE 201mg/dl.INSULIN GTT INCREASED TO 3 UNITS/HOUR. FRESH ICE WATER PROVIDED PER PTS REQUEST. 600ML CLEAR YELLOW URINE EMPTIED FROM URINAL.
--- NOTE | 2021-01-22 05:49 | NUR ---
Nicole MCGOWAN ORCHID TRANSPLANTER IN ROOM TO COLLECT CHEM7.
--- NOTE | 2021-01-22 06:02 | NUR ---
POINT OF CARE GLUCOSE 241mg/dl. NO CHANGES TO INSULIN GTT.
[2021-01-22 06:19] LABS: MEAN CORPUSCULAR HGB 27.4 pG CALC (26.0-32.0); MEAN CORPUSCULAR HGB CONC 32.5 g/dL CAL (32.0-36.0); RED BLOOD COUNT 4.96 mill/uL (4.70-6.10); RED CELL DISTRI WIDTH 11.9 % (11.5-15.5)
[2021-01-22 06:36] LABS: HEMATOCRIT 41.9 % (39.0-50.0); HEMOGLOBIN 13.6 g/dl (14.0-18.0); MEAN CELL VOLUME 84.5 fL CALC (80.0-100.0); PLATELET COUNT 223 thou/uL (130-400)
[2021-01-22 06:55] LABS: ANION GAP 15 (6-22 (CALC)); BUN 15 mg/dL (9-20); BUN/CREATININE RATIO 24 (12-20 (CALC)); CALCULATED LDLCHOLESTEROL 105 mg/dL (62-129 (CALC)); CARBON DIOXIDE 12 mmol/l (22-30); CHLORIDE 109 mmol/l (95-108); CHOLESTEROL HDL RATIO 3.7 (<4.4 (CALC)); CREATININE 0.6 mg/dL (0.7-1.3); GFR > 60 ML/MIN (>=60 (CALC)); GFR FOR AFR.AMER. > 60 ML/MIN (>=60 (CALC)); HDL CHOLESTEROL 49 mg/dL (>=40); POTASSIUM 3.6 mmol/l (3.5-5.1); SODIUM 133 mmol/l (137-146); TOTAL TRIGLYCERIDES 139 mg/dl (30-149); VLDL CHOLESTROL 28 mg/dl (5-56 (CALC))
[2021-01-22 06:58] LABS: MAGNESIUM 2.1 mg/dL (1.6-2.3); TOTAL CHOLESTEROL 182 mg/dl (0-199)
--- NOTE | 2021-01-22 07:03 | NUR ---
CHEM 7 RESULTS RECEIVED AND ASSESSED. GLUCOSE 248mg/dl. K+3.6, NA+133, CL-109, C02 12. ANION GAP 12. ANION GAP REMAINS OPEN. NO CHANGES TO INSULIN GTT. NEXT CHEM 7 DUE @ 3653.
--- NOTE | 2021-01-22 07:35 | NUR ---
REPORT RECEIVED FROM ALFONZO SAMPSON. PT RESTING IN BED SUPINE WITH EYES CLOSED AND NO SIGNS OF DISTRESS; AWAKENS TO VERBAL STIMULI; DROWSLY AND ORIENTED X 3; MOSTLY CONGOL[place] SPEAKING. C/O MILD HEADACHE; COOL CLOTH APPLIED TO FOREHEAD. RESPIRATIONS EVEN AND UNLABORED ON ROOM AIR. INSULIN GTT INFUSING AT 3 UNITS/HR; D5 0.45% NS INFUSING AT 125ML/HR WITHOUT DIFFICULY; HOURLY ACCU CHECK AT 0700 IS 206. SKIN IS MOIST AND WARM; TEMP 98.6; PT DENIES HALLUCINATIONS; VERY MILD TREMORS NOTED WITH ARMS EXTENDED. POC REVIEWED; PT ENCOURAGED TO VERBALIZE CONCERNS. SAFETY MEASURES IN PLACE. CALL LIGHT WITHIN REACH.
--- NOTE | 2021-01-22 08:00 | NUR ---
INSULIN GTT TITRATED TO 2 UNITS/HR FOR BLOOD GLUCOSE OF 206 AND 200.
--- NOTE | 2021-01-22 08:58 | NUR ---
DR. RUDD AT BEDSIDE.
--- NOTE | 2021-01-22 09:15 | NUR ---
RT AT BEDSIDE FOR ABG.
--- NOTE | 2021-01-22 09:30 | NUR ---
NOTIFIED OF CH7 AND ABG RESULTS; ORDERS TO CONTINUE INSULIN GTT AND DKA PROTOCOL FOR NOW. WILL CONTINUE TO MONITOR.
[2021-01-22 10:17] LABS: ANION GAP 12 (6-22 (CALC)); BUN 13 mg/dL (9-20); BUN/CREATININE RATIO 23 (12-20 (CALC)); CHLORIDE 107 mmol/l (95-108); CREATININE 0.5 mg/dL (0.7-1.3); GFR > 60 ML/MIN (>=60 (CALC)); GFR FOR AFR.AMER. > 60 ML/MIN (>=60 (CALC)); POTASSIUM 3.5 mmol/l (3.5-5.1); SODIUM 132 mmol/l (137-146)
[2021-01-22 10:18] LABS: CARBON DIOXIDE 17 mmol/l (22-30)
--- NOTE | 2021-01-22 12:00 | NUR ---
ACCU CHECK 323; INSULIN GTT TITRATED UP TO 3 UNITS/HR. PT RESTING SEMI FOWLERS WITH EYES CLOSED; ATE 100% OF LUNCH. NO REQUESTS OR CONCERNS AT THIS TIME.
--- NOTE | 2021-01-22 13:38 | NUR ---
LAB AT BEDSIDE FOR STANDING ORDER CHEMISTRY.
[2021-01-22 13:56] LABS: ANION GAP 9 (6-22 (CALC)); BUN 11 mg/dL (9-20); BUN/CREATININE RATIO 19 (12-20 (CALC)); CARBON DIOXIDE 18 mmol/l (22-30); CHLORIDE 107 mmol/l (95-108); CREATININE 0.6 mg/dL (0.7-1.3); GFR > 60 ML/MIN (>=60 (CALC)); GFR FOR AFR.AMER. > 60 ML/MIN (>=60 (CALC)); POTASSIUM 3.1 mmol/l (3.5-5.1); SODIUM 131 mmol/l (137-146)
--- NOTE | 2021-01-22 14:16 | NUR ---
ANION GAP IS CLOSED; INSULIN GTT DISCONTINUED AND IV FLUIDS CHANGED TO NORMAL SALINE AT 75ML/HR. LEVEMIR 45 UNITS GIVEN IN LEFT UPPER ARM. PT UPDATED THAT FINGER STICK BLOOD GLUCOSES WILL NOW BE CHECKED ACHS AND PRN INSTEAD OF HOURLY; STATES UNDERSTANDING. WILL CONTINUE TO CLOSELY MONITOR.
--- NOTE | 2021-01-22 16:45 | NUR ---
ACCU CHECK 331; 7 UNITS OF HUMALOG GIVEN PER MEDIUM DOSE SLIDING SCALE COVERAGE. RESTING WITH EYES CLOSED. VSS. IV SITES APPEAR HEALTHY. SINUS RHYTHM ON MANAGER TRANSFUSION WITH HEART RATE IN THE 70'S. SAFETY MEASURES IN PLACE. CALL LIGHT WITHIN REACH.
--- NOTE | 2021-01-22 17:48 | NUR ---
SITTING UP IN HIGH FOWLERS FOR DINNER.
--- NOTE | 2021-01-22 19:30 | NUR ---
PATIENT IS AWAKE, ORIENTED X4, HAD JUST USED URINAL, URINE CLEAR/PALE YELLOW. ON RA, NO SOB NOTED, O2 SATS ABOVE 95%. COMPLIANS OF HEADACHE, IS HUNGRY, DENIES NAUSEA AT THIS TIME. IV X2 INTACT, NS INFUSING AT 75 ML/HR. SR ON TELEMETRY, BP WNL, HR 70'S. POC DISCUSSED WELL DIABETIC TEACHING, PATIENT UNDERSTANDS AND AGREES. SELF REPOSIRIONS. NURSE ASSESSMENT PERFORMED. WILL PROVIDE FOOD AND DIET SODA. CALL LIGHT WITHIN REACH.
--- NOTE | 2021-01-22 19:56 | NUR ---
TURKEY SANDWICH, JELLOE, AND DIET SODA PROVIDED. PATIENT WAS ALSO OFFERED A BED BATHE SUNITA, PT AGREES.
--- NOTE | 2021-01-22 21:33 | NUR ---
PROVIDED TYLENO PER PATIENT REQUEST FOR HEADACHE WHICH HE SAID WAS BETTER SINCE HE WAS ABLE TO EAT. INSULIN GIVEN PER MEDIUM SLIDING SCALE PROTOCOL. NO ACUTE DISTRESS SHOWN, WATCHES TV. REFUSES BED BATHE FOR TONIGHT, REPORTS HE IS TOO COLD NOW.
[2021-01-23] VITALS (8 sets, daily range): BP systolic 85–126; BP diastolic 55–76
--- NOTE | 2021-01-23 03:37 | NUR ---
PATIENT IS AWAKE, NO COMPLAINTS, REQUESTS ICED WATER, PROVIDED. NEW BAG IV NS IV FLUIDS INFUSING NOW. CALL LIGHT WITHIN REACH.
--- NOTE | 2021-01-23 06:21 | NUR ---
PATIENT LAYS ON HIS RIGHT SIDE, SLEEPS. NO ACUTE DISTRES SSHOWN. ALL VS WNL. CALL LIGHT WITHIN REACH.
--- NOTE | 2021-01-23 07:09 | NUR ---
REPORT RECEIVED FROM ALFONZO OROURKE. PT RESTING IN BED SUPINE AND ASLEEP; AWAKENS TO VERBAL STIMULI. DENIES PAIN; RESPIRATIONS EVEN AND UNLABORED ON ROOM AIR. NORMAL SALINE INFUSING WITHOUT DIFFICULTY AT 75 ML/HR; IV SITE X 2 APPEARS HEALTHY. ACCU CHECK 127. POC REVIEWED; PT ENCOURAGED TO VERBALIZE CONCERNS; STATES UNDERSTANDING. SAFETY MEASURES IN PLACE. CALL LIGHT WITHIN REACH.
--- NOTE | 2021-01-23 08:25 | NUR ---
DR. RUDD AT BEDSIDE; NEW ORDERS RECEIVED. LABS DRAWN BY ICU STAFF AND SENT TO LAB.
[2021-01-23 08:35] LABS: HEMATOCRIT 39.2 % (39.0-50.0); HEMOGLOBIN 13.2 g/dl (14.0-18.0); IMMATURE GRANULOCYTES 0.3 % (0.0-5.0); MEAN CELL VOLUME 82.5 fL CALC (80.0-100.0); MEAN CORPUSCULAR HGB 27.8 pG CALC (26.0-32.0); MEAN CORPUSCULAR HGB CONC 33.7 g/dL CAL (32.0-36.0); NEUT# 4.2 thou/uL (1.82-7.42); RED BLOOD COUNT 4.75 mill/uL (4.70-6.10); RED CELL DISTRI WIDTH 11.9 % (11.5-15.5)
[2021-01-23 09:00] LABS: ALKALINE PHOSPHATASE 64 u/l (38-126); ANION GAP 10 (6-22 (CALC)); BILIRUBIN, TOTAL 0.6 mg/dL (0.0-1.4); BUN 11 mg/dL (9-20); BUN/CREATININE RATIO 23 (12-20 (CALC)); CARBON DIOXIDE 19 mmol/l (22-30); CHLORIDE 107 mmol/l (95-108); CREATININE 0.5 mg/dL (0.7-1.3); GFR > 60 ML/MIN (>=60 (CALC)); GFR FOR AFR.AMER. > 60 ML/MIN (>=60 (CALC)); POTASSIUM 2.9 mmol/l (3.5-5.1); SGOT/AST 16 u/l (17-59); SODIUM 133 mmol/l (137-146)
[2021-01-23 09:07] LABS: ALBUMIN 2.9 g/dL (3.2-5.0); TOTAL PROTEIN 5.7 g/dL (6.3-8.2)
--- NOTE | 2021-01-23 09:59 | NUR ---
TYLENOL GIVEN FOR HEADACHE AND WAS EFFECTIVE; CARAFATE GIVEN FOR STOMACH DISCOMFORT AFTER EATING BREAKFAST.
--- NOTE | 2021-01-23 11:12 | NUR ---
IV SITE TO RIGHT WRIST INFILTRATED WITH NORMAL SALINE; IV SITE REMOVED, COOL COMPRESS APPLIED AND EXTREMITY ELEVATED ON PILLOW. NS NOW INFUSING INTO RAC IV. ACCU CHECK 302; COVERED WITH 7 UNITS OF S/S HUMALOG. VOIDING CLEAR, YELLOW URINE IN BEDSIDE URINAL IN ADEQUATE AMOUNTS.
--- NOTE | 2021-01-23 11:44 | NUR ---
#20G IV TO RAC INFILTRATED AFTER CONTINOUS FLUIDS STARTED; VERY MINOR SWELLING AND NO PAIN; IV SITE DC'D. PT SITTING UP IN HIGH FOWLERS FOR LUNCH. PO POTASSIUM GIVEN AND NEW ORDERS RECEIVED FOR TRANSFER TO MEDR UNIT.
--- NOTE | 2021-01-23 12:20 | NUR ---
NEW IV STARTED #20G TO LAC ; NS AGAIN INFUSING AT 75 ML/HR. PT ATE 100% OF LUNCH. NO OTHER REQUESTS OR CONCERNS AT THIS TIME. CALL LIGHT WITHIN REACH.
--- NOTE | 2021-01-23 13:38 | NUR ---
FAMILY AT BEDSIDE.
--- NOTE | 2021-01-23 16:05 | NUR ---
PT TRANSPORTED TO [facility] UNIT ROOM 261 VIA WHEELCHAIR IN STABLE CONDITION. BEDSIDE REPORT GIVEN TO ALFONZO MILLAN.
--- NOTE | 2021-01-23 16:38 | NUR ---
PT RECEIVED TO MED/SURG ROOM 261 VIA WHEELCHAIR FROM ICU. PT IS ALERT AND ORIENTED X 3, AMBULATORY WITHOUT DIFFICULTY, ACCOMPANIED BY HIS . LUNGS CLEAR BUT DIMINISHED, RA. NO REPORT OF NAUSEA.
--- NOTE | 2021-01-23 19:04 | NUR ---
REPORT FROM YANA MEJÍA. ASSUMED PT CARE.
--- NOTE | 2021-01-23 20:47 | NUR ---
PT NOTED RESTING IN BED. ALERT AND ORIENTED. NO APPARENT DISTRESS NOTED. PT MALAY SPEAKING. IV SITE APPEARS HEALTHY WITH IVF INFUSING. PT DENIES ANY PAIN OR DISCOMFORT. MEDICATED ORDERED. DIABETIC SNACK PROVIDED AT THIS TIME. NO OTHER CURRENT WANTS OR NEEDS NOTED. CALL LIGHT WITHIN REACH. WILL CONTINUE TO MONITOR.
[2021-01-24] VITALS: BP 115/75
--- NOTE | 2021-01-24 00:02 | NUR ---
PT RESTING IN BED WITH EYES CLOSED. NO APPARENT DISTRESS NOTED. RESPIRATIONS EVEN AND UNLABORED. IVF INFUSING WITHOUT DIFFICULTY. CALL LIGHT WITHIN REACH. WILL CONTINUE TO MONITOR.
[2021-01-24 04:00] VITALS: BP 113/69
--- NOTE | 2021-01-24 04:13 | NUR ---
PT RESTING IN BED. WAKES EASILY, ALERT AND ORIENTED. NO APPARENT DISTRESS NOTED. RESPIRATIONS EVEN AND UNLABORED. IVF INFUSING WITHOUT DIFFICULTY. CALL LIGHT WITHIN REACH. WILL CONTINUE TO MONITOR.
[2021-01-24 07:08] VITALS: BP 109/73
--- NOTE | 2021-01-24 07:08 | NUR ---
PT LAYING IN BED. A&O X4. NO DISTRESS NOTED. PT C/O HEADACHE RATED AT 9/10 ON PAIN SCALE, CURRENTLY REPORTS NO RELIEF FROM MEDICATION GIVEN THIS AM, STATES IT HAS WORSENED COMPARED TO YESTERDAY. CLEAR BREATH SOUNDS HEARD UPON ASUCULTATION. ACTIVE BOWEL SOUNDS X4 QUADRANTS. #20G LAC IV HEALTHY AND PATENT WITH IVF INFUSING PER MAR ORDERS. NO EDEMA NOTED TO BLE, STRONG PEDAL PULSES UPON PALPATION. DISCUSSED POC. CALL LIGHT AND PERSONAL BELONGINGS WITHIN REACH.
[2021-01-24 08:10] LABS: HEMATOCRIT 38.7 % (39.0-50.0); HEMOGLOBIN 12.9 g/dl (14.0-18.0); IMMATURE GRANULOCYTES 0.2 % (0.0-5.0); MEAN CELL VOLUME 82.9 fL CALC (80.0-100.0); MEAN CORPUSCULAR HGB 27.6 pG CALC (26.0-32.0); MEAN CORPUSCULAR HGB CONC 33.3 g/dL CAL (32.0-36.0); NEUT# 2.88 thou/uL (1.82-7.42); RED BLOOD COUNT 4.67 mill/uL (4.70-6.10); RED CELL DISTRI WIDTH 11.9 % (11.5-15.5)
[2021-01-24 08:39] LABS: ANION GAP 8 (6-22 (CALC)); BUN 9 mg/dL (9-20); BUN/CREATININE RATIO 22 (12-20 (CALC)); CHLORIDE 106 mmol/l (95-108); CREATININE 0.4 mg/dL (0.7-1.3); GFR > 60 ML/MIN (>=60 (CALC)); GFR FOR AFR.AMER. > 60 ML/MIN (>=60 (CALC)); POTASSIUM 2.8 mmol/l (3.5-5.1); SODIUM 136 mmol/l (137-146)
[2021-01-24 08:47] LABS: CARBON DIOXIDE 25 mmol/l (22-30)
--- NOTE | 2021-01-24 09:21 | NUR ---
DR RUDD AND Jose Enrique LOO APRN AT BEDSIDE DISCUSSING POC
--- NOTE | 2021-01-24 11:31 | NUR ---
PT LAYING IN BED. NO DISTRESS NOTED OR NEEDS AT THIS TIME. CALL LIGHT WITHIN REACH.
[2021-01-24 16:28] VITALS: BP 114/73
--- NOTE | 2021-01-24 19:56 | NUR ---
PATIENT AWAKE LYING IN BED. ALERT AND ORIENTED X3. ABLE TO MAKE NEEDS KNOWN. RESPIRATIONS EASY ON ROOM AIR. C/O HEADACHED 03/01, TYLENOL 650MG PO GIVEN. HEART RATE SLOW AND REGULAR. BS+ ALL QUADRANTS. PEDAL PULSES +2 B/L. AMBULATORY. VAD RH PATENT AND INFUSING IVF AT 75, DRESSING CLEAN DRY INTACT. NO OTHER COMPLAINTS VERBALIZED. BED IN LOW POSITION. CALL LIGHT WITHIN REACH.
[2021-01-24 20:00] VITALS: BP 121/77
[2021-01-25 04:00] VITALS: BP 110/71
[2021-01-25 05:05] LABS: HEMATOCRIT 39.8 % (39.0-50.0); MEAN CELL VOLUME 83.8 fL CALC (80.0-100.0); MEAN CORPUSCULAR HGB 27.4 pG CALC (26.0-32.0); MEAN CORPUSCULAR HGB CONC 32.7 g/dL CAL (32.0-36.0); RED BLOOD COUNT 4.75 mill/uL (4.70-6.10); RED CELL DISTRI WIDTH 11.9 % (11.5-15.5)
[2021-01-25 05:24] LABS: ANION GAP 10 (6-22 (CALC)); BUN 12 mg/dL (9-20); BUN/CREATININE RATIO 27 (12-20 (CALC)); CARBON DIOXIDE 25 mmol/l (22-30); CHLORIDE 104 mmol/l (95-108); CREATININE 0.4 mg/dL (0.7-1.3); GFR > 60 ML/MIN (>=60 (CALC)); GFR FOR AFR.AMER. > 60 ML/MIN (>=60 (CALC)); MAGNESIUM 1.7 mg/dL (1.6-2.3); SODIUM 135 mmol/l (137-146)
[2021-01-25 05:27] LABS: POTASSIUM 3.5 mmol/l (3.5-5.1)
[2021-01-25 08:00] VITALS: BP 110/71
== END 2021-01-25 11:05 | disposition home or self-care (01) | DRG 638 ==
LOC: ED 12:30 → ED-I 15:50 → ED 16:15 → ICU 16:16 → MS2 16:16
PROVIDERS: Internal Medicine; Nurse Practitioner; ADMIT Internal Medicine; ATTEND Internal Medicine
DX: E10.10 Type 1 diabetes mellitus with ketoacidosis without coma (principal); N17.9 Acute kidney failure, unspecified; E86.0 Dehydration; F10.129 Alcohol abuse with intoxication, unspecified; E87.6 Hypokalemia; F17.210 Nicotine dependence, cigarettes, uncomplicated; T38.3X6A Underdosing of insulin and oral hypoglycemic [antidiabetic] drugs, initial encounter; Z91.128 Patient's intentional underdosing of medication regimen for other reason; Z79.4 Long term (current) use of insulin; Z20.822 Contact with and (suspected) exposure to COVID-19
CPT/HCPCS: J1650

== ENCOUNTER 2021-05-01 22:33 | Inpatient (IN) | payer SELFPAY ==
[~2021-05-01] VITALS: Ht 165.1 cm; Wt 73.0 kg
--- NOTE | 2021-05-01 23:26 | NUR ---
IVP MEDICATION GIVEN BY THIS RN
[2021-05-01 23:27] LABS: IMMATURE GRANULOCYTES 0.9 % (0.0-5.0); MEAN CORPUSCULAR HGB 30.8 pG CALC (26.0-32.0); MEAN CORPUSCULAR HGB CONC 32.5 g/dL CAL (32.0-36.0); NEUT# 17.31 thou/uL (1.82-7.42); RED BLOOD COUNT 5.55 mill/uL (4.70-6.10); RED CELL DISTRI WIDTH 14.3 % (11.5-15.5)
--- NOTE | 2021-05-01 23:27 | NUR ---
IV PUSH MEDICATIONS GIVEN BY THIS RN
[2021-05-01 23:31] LABS: HEMATOCRIT 52.6 % (39.0-50.0); HEMOGLOBIN 17.1 g/dl (14.0-18.0); MEAN CELL VOLUME 94.8 fL CALC (80.0-100.0)
[2021-05-01 23:39] LABS: BILIRUBIN, TOTAL 0.6 mg/dL (0.0-1.4); BUN 8 mg/dL (9-20); BUN/CREATININE RATIO 8 (12-20 (CALC)); CHLORIDE 104 mmol/l (95-108); CREATININE 0.9 mg/dL (0.7-1.3); ETHYL ALCOHOL 0 mg/dl (0-30); GFR > 60 ML/MIN (>=60 (CALC)); GFR FOR AFR.AMER. > 60 ML/MIN (>=60 (CALC)); SODIUM 138 mmol/l (137-146)
[2021-05-01 23:53] LABS: MYOGLOBIN 17 ng/mL (0 - 121)
[2021-05-01 23:59] LABS: ALBUMIN 5.2 g/dL (3.2-5.0); ALKALINE PHOSPHATASE 157 u/l (38-126); ANION GAP 33 (6-22 (CALC)); MAGNESIUM 2.3 mg/dL (1.6-2.3); POTASSIUM 4.4 mmol/l (3.5-5.1); SGOT/AST 58 u/l (17-59); TOTAL PROTEIN 9.6 g/dL (6.3-8.2)
[2021-05-02] VITALS (20 sets, daily range): BP systolic 98–119; BP diastolic 66–79
[2021-05-02] LABS: CARBON DIOXIDE < 5 mmol/l (22-30)
--- NOTE | 2021-05-02 00:57 | NUR ---
INSULIN TITRATED TO 3 UNITS/HOUR
[2021-05-02 01:31] LABS: URINE BILIRUBIN - DIPSTICK NEGATIVE (NEGATIVE); URINE BLOOD DIPSTICK SMALL (NEGATIVE); URINE COLOR YELLOW; URINE GLUCOSE - DIPSTICK 500 mg/dL (NEGATIVE); URINE KETONE >=80 mg/dL (NEGATIVE); URINE LEUK ESTERASE NEGATIVE (NEGATIVE); URINE PH 5.5 (4.5-8.0); URINE PROTEIN - DIPSTICK 30 mg/dL (NEG-TRACE); URINE SPECIFIC GRAVITY >=1.030; URINE UROBILINOGEN - DIPSTICK 0.2 E.U./dL (0.2)
[2021-05-02 01:32] LABS: URINE NITRITE - DIPSTICK NEGATIVE (Negative)
--- NOTE | 2021-05-02 01:41 | NUR ---
750 CLEAR URINE OUTPUT. HOLD POTASSIUM ANG MAGNESIUM FOR POTASSIUM 3.4 OR LESS AND MAGNESIUM 1.9 OR LESS
[2021-05-02 01:45] LABS: URINE SQUAMOUS EPITHELIAL CELL FEW EPI/hpf (0-FEW); URINE WBC 0-2 WBC/hpf (0-5)
[2021-05-02 04:13] LABS: HEMATOCRIT 50.7 % (39.0-50.0); HEMOGLOBIN 16.5 g/dl (14.0-18.0); IMMATURE GRANULOCYTES 0.5 % (0.0-5.0); MEAN CELL VOLUME 94.8 fL CALC (80.0-100.0); MEAN CORPUSCULAR HGB 30.8 pG CALC (26.0-32.0); MEAN CORPUSCULAR HGB CONC 32.5 g/dL CAL (32.0-36.0); NEUT# 15.5 thou/uL (1.82-7.42); RED BLOOD COUNT 5.35 mill/uL (4.70-6.10); RED CELL DISTRI WIDTH 14.4 % (11.5-15.5)
[2021-05-02 04:19] LABS: ALBUMIN 4.4 g/dL (3.2-5.0); ALKALINE PHOSPHATASE 123 u/l (38-126); BILIRUBIN, TOTAL 0.5 mg/dL (0.0-1.4); BUN 6 mg/dL (9-20); BUN/CREATININE RATIO 8 (12-20 (CALC)); CHLORIDE 110 mmol/l (95-108); CREATININE 0.8 mg/dL (0.7-1.3); GFR > 60 ML/MIN (>=60 (CALC)); GFR FOR AFR.AMER. > 60 ML/MIN (>=60 (CALC)); MAGNESIUM 2.2 mg/dL (1.6-2.3); POTASSIUM 3.9 mmol/l (3.5-5.1); SGOT/AST 39 u/l (17-59); SODIUM 138 mmol/l (137-146); TOTAL PROTEIN 8.4 g/dL (6.3-8.2)
[2021-05-02 04:40] LABS: ANION GAP 27 (6-22 (CALC))
[2021-05-02 04:41] LABS: CARBON DIOXIDE < 5 mmol/l (22-30)
--- NOTE | 2021-05-02 05:34 | NUR ---
ADMITING PROVIDER NOTIFIED OF CO2 LESS THAN 5. NEW ORDER FOR 1L NS BOLUS. 1150 URINE OUTPUT.
--- NOTE | 2021-05-02 06:58 | NUR ---
SPOKE WITH SAMMY AT [facility] TO CORRECT NS QH TO NS X 1 NOW. NS INFUSING ORDERED.
--- NOTE | 2021-05-02 07:15 | NUR ---
PATIENT RESTING IJN BED WITH EYES CLOSED. PATIENT AROUSES EASILY TO VERBAL STIMULI. PT IS ALERT AND ORIENTED X3. ADMISSION ASSESSMENT COMPLETED AT THIS ITME. IV PATENT X1. CALL LIGHT IN REACH. WILL CONTINUE TO MONITOR.
--- NOTE | 2021-05-02 08:05 | NUR ---
LAB AT BED FOR 0800 CMP. THEN PATIENT SET UP FOR AM MEAL.
[2021-05-02 08:09] LABS: HEMATOCRIT 45.7 % (39.0-50.0); HEMOGLOBIN 14.9 g/dl (14.0-18.0); IMMATURE GRANULOCYTES 0.5 % (0.0-5.0); MEAN CELL VOLUME 94.2 fL CALC (80.0-100.0); MEAN CORPUSCULAR HGB 30.7 pG CALC (26.0-32.0); MEAN CORPUSCULAR HGB CONC 32.6 g/dL CAL (32.0-36.0); NEUT# 11.45 thou/uL (1.82-7.42); RED BLOOD COUNT 4.85 mill/uL (4.70-6.10); RED CELL DISTRI WIDTH 14.6 % (11.5-15.5)
--- NOTE | 2021-05-02 08:38 | NUR ---
ACCUCHECK 275 INCREASED INSULIN TO 3 UNITS PER HOUR
[2021-05-02 08:56] LABS: BUN 6 mg/dL (9-20); BUN/CREATININE RATIO 9 (12-20 (CALC)); CHLORIDE 113 mmol/l (95-108); CREATININE 0.7 mg/dL (0.7-1.3); GFR > 60 ML/MIN (>=60 (CALC)); GFR FOR AFR.AMER. > 60 ML/MIN (>=60 (CALC)); POTASSIUM 3.7 mmol/l (3.5-5.1); SODIUM 136 mmol/l (137-146)
[2021-05-02 09:00] LABS: CARBON DIOXIDE < 5 mmol/l (22-30)
--- NOTE | 2021-05-02 10:19 | NUR ---
DR AYALA AND JET LOO APRN AT BEDSIDE AT THIS TIME.
[2021-05-02] MEDS ORDERED: K-TAB20 MEQ PO (10:56)
[2021-05-02] MEDS ORDERED: JANUVIA100 MG PO (10:56)
[2021-05-02] MEDS ORDERED: PROTONIX40 M2 PO (10:56)
[2021-05-02] MEDS ORDERED: LEVEMIR FL100 UNIT/M SC (10:57)
--- NOTE | 2021-05-02 11:56 | NUR ---
LAB AT BEDSIDE FOR CMP
[2021-05-02 12:30] LABS: ALKALINE PHOSPHATASE 88 u/l (38-126); BILIRUBIN, TOTAL 0.6 mg/dL (0.0-1.4); BUN 7 mg/dL (9-20); BUN/CREATININE RATIO 12 (12-20 (CALC)); CHLORIDE 111 mmol/l (95-108); CREATININE 0.6 mg/dL (0.7-1.3); GFR > 60 ML/MIN (>=60 (CALC)); GFR FOR AFR.AMER. > 60 ML/MIN (>=60 (CALC)); POTASSIUM 3.1 mmol/l (3.5-5.1); SGOT/AST 22 u/l (17-59); SODIUM 133 mmol/l (137-146)
[2021-05-02 12:37] LABS: ALBUMIN 3.4 g/dL (3.2-5.0); ANION GAP 16 (6-22 (CALC)); TOTAL PROTEIN 6.6 g/dL (6.3-8.2)
[2021-05-02 12:38] LABS: CARBON DIOXIDE 9 mmol/l (22-30)
--- NOTE | 2021-05-02 12:55 | NUR ---
FLUIDS CHANGED TO D5 1/2 WITH POTASSIUM DUE TO K 3.1. DISCUSSED K WITH D CINDA DIRECTOR OF BUSINESS SYSTEMS AND MAG WILL HOLD ON K RIDER AND MAG INFUSION AND GIVE THESE FLUIDS AND CONTINUE INSULIN DRIP. WILL ALSO KEEP PATIENT NPO WITH ICE CHIPS ONLY. PATIENT MADE AWARE.
--- NOTE | 2021-05-02 14:35 | NUR ---
PATIENT REMAINS ON STRETCHER. NO COMPLAINTS VOICED. WILL CONTINUE OT MONITOR
[2021-05-02 15:30] LABS: ALBUMIN 3.4 g/dL (3.2-5.0); ALKALINE PHOSPHATASE 91 u/l (38-126); ANION GAP 16 (6-22 (CALC)); BILIRUBIN, TOTAL 0.7 mg/dL (0.0-1.4); BUN 8 mg/dL (9-20); BUN/CREATININE RATIO 13 (12-20 (CALC)); CARBON DIOXIDE 10 mmol/l (22-30); CHLORIDE 112 mmol/l (95-108); CREATININE 0.6 mg/dL (0.7-1.3); GFR > 60 ML/MIN (>=60 (CALC)); GFR FOR AFR.AMER. > 60 ML/MIN (>=60 (CALC)); POTASSIUM 3.2 mmol/l (3.5-5.1); SGOT/AST 24 u/l (17-59); SODIUM 135 mmol/l (137-146); TOTAL PROTEIN 6.6 g/dL (6.3-8.2)
--- NOTE | 2021-05-02 16:00 | NUR ---
PATIENT RESTING ON STRETCHER AT THIS TIME. NO DISTRESS NOTED.
--- NOTE | 2021-05-02 17:00 | NUR ---
PHONED DR RUDD WITH LAB RESULTS. ORDES RECEIVED TO GIVE LEVEMIR AND STOP INSULIN DRIP IN 2 HOURS AND FEED PATIENT AND START MEDIUM DOSE COVERAGE. ORDERS SENT TO [place]. ORDERS EXPLAINED TO PATIENT. PATIENT VERBLAIZED UNDERSTANDING.
--- NOTE | 2021-05-02 18:00 | NUR ---
PATIENT GIIVEN LEVEMIR PER MAR AND PM MEAL.
[2021-05-02 18:37] LABS: ALBUMIN 3.3 g/dL (3.2-5.0); ALKALINE PHOSPHATASE 80 u/l (38-126); ANION GAP 12 (6-22 (CALC)); BILIRUBIN, TOTAL 0.7 mg/dL (0.0-1.4); BUN 8 mg/dL (9-20); BUN/CREATININE RATIO 14 (12-20 (CALC)); CARBON DIOXIDE 12 mmol/l (22-30); CHLORIDE 114 mmol/l (95-108); CREATININE 0.6 mg/dL (0.7-1.3); GFR > 60 ML/MIN (>=60 (CALC)); GFR FOR AFR.AMER. > 60 ML/MIN (>=60 (CALC)); POTASSIUM 3.2 mmol/l (3.5-5.1); SGOT/AST 23 u/l (17-59); SODIUM 135 mmol/l (137-146); TOTAL PROTEIN 6.6 g/dL (6.3-8.2)
[2021-05-02 22:34] LABS: ALBUMIN 3.3 g/dL (3.2-5.0); ALKALINE PHOSPHATASE 85 u/l (38-126); BILIRUBIN, TOTAL 0.7 mg/dL (0.0-1.4); BUN 11 mg/dL (9-20); BUN/CREATININE RATIO 15 (12-20 (CALC)); CHLORIDE 109 mmol/l (95-108); CREATININE 0.8 mg/dL (0.7-1.3); GFR > 60 ML/MIN (>=60 (CALC)); GFR FOR AFR.AMER. > 60 ML/MIN (>=60 (CALC)); POTASSIUM 3.1 mmol/l (3.5-5.1); SGOT/AST 20 u/l (17-59); SODIUM 134 mmol/l (137-146); TOTAL PROTEIN 6.4 g/dL (6.3-8.2)
[2021-05-02 22:35] LABS: ANION GAP 13 (6-22 (CALC)); CARBON DIOXIDE 15 mmol/l (22-30)
--- NOTE | 2021-05-02 23:08 | NUR ---
NURSE SHASHA NOT AVAILABLE FOR REPORT AT THIS TIME.
--- NOTE | 2021-05-03 00:29 | NUR ---
PATRICIA PULLIAM GIVEN REPORT
[2021-05-03 01:43] VITALS: BP 99/68
--- NOTE | 2021-05-03 01:46 | NUR ---
INSULIN DRIP STOPPED AT 2015 - 2HRS AFTER LEVEMIR GIVEN PER OFF GOING RN. PT TOLERATED WELL. PT BEING TRANSPORTED TO FLOOR BY RECEIVING NURSE PATRICIA PULLIAM. NO DISTRESS.
[2021-05-03 01:50] VITALS: BP 102/68
--- NOTE | 2021-05-03 02:03 | NUR ---
PT ARRIVED TO UNIT AT APPROXIMATLY 0145. DRY COUGH NOTED. COVID TEST NEGATIVE. LUNG CTA. BS ON ARRIVAL 131. PT STABLE AT THIS TIME. IV SITES X 2 TO R ARM. #20 TO ATIYA AND #22 TO RAC. ATIYA SITE IS CAUSING PAIN WHEN FLUSHED. SITE TO RAC IS NOT CAUSING ANY DISCOMFORT. WILL RECHECK COVIDS TEST AGAIN D/T PT BEING SYMPTOMATIC. BREATHING EVEN AND UNLABORED. DENIES PAIN. BREATHING EVEN AND UNLABORED. WILL MONITOR
[2021-05-03 02:14] LABS: ALBUMIN 3.7 g/dL (3.2-5.0); ALKALINE PHOSPHATASE 84 u/l (38-126); ANION GAP 14 (6-22 (CALC)); BILIRUBIN, TOTAL 0.6 mg/dL (0.0-1.4); BUN 12 mg/dL (9-20); BUN/CREATININE RATIO 17 (12-20 (CALC)); CARBON DIOXIDE 16 mmol/l (22-30); CHLORIDE 111 mmol/l (95-108); CREATININE 0.7 mg/dL (0.7-1.3); GFR > 60 ML/MIN (>=60 (CALC)); GFR FOR AFR.AMER. > 60 ML/MIN (>=60 (CALC)); POTASSIUM 2.9 mmol/l (3.5-5.1); SGOT/AST 20 u/l (17-59); SODIUM 138 mmol/l (137-146); TOTAL PROTEIN 6.9 g/dL (6.3-8.2)
[2021-05-03 04:00] VITALS: BP 98/58
--- NOTE | 2021-05-03 04:00 | NUR ---
PT RESTING QUIETLY, IV FLUIDS WITH K CONTINUE AT 75ML/HR. PT TOLERATED WELL. NO CONCERNS VOICED. NO COMPLAINTS VOICED. DRY COUGH CONTINUES. VS WNL. SAFETY PRECAUTIONS REMAIN IN PLACE. WILL MONITOR
[2021-05-03 06:46] LABS: ALBUMIN 3.3 g/dL (3.2-5.0); ALKALINE PHOSPHATASE 89 u/l (38-126); ANION GAP 14 (6-22 (CALC)); BILIRUBIN, TOTAL 0.6 mg/dL (0.0-1.4); BUN 12 mg/dL (9-20); BUN/CREATININE RATIO 20 (12-20 (CALC)); CARBON DIOXIDE 16 mmol/l (22-30); CHLORIDE 110 mmol/l (95-108); CREATININE 0.6 mg/dL (0.7-1.3); GFR > 60 ML/MIN (>=60 (CALC)); GFR FOR AFR.AMER. > 60 ML/MIN (>=60 (CALC)); POTASSIUM 2.9 mmol/l (3.5-5.1); SGOT/AST 21 u/l (17-59); SODIUM 136 mmol/l (137-146); TOTAL PROTEIN 6.3 g/dL (6.3-8.2)
[2021-05-03 07:11] VITALS: BP 109/61
--- NOTE | 2021-05-03 08:15 | NUR ---
PATIENT IS RESTING IN BED. ASSESSMENT DONE. PATIENT IS ALERT AND ORIENT X3. PATIENT DENIES PAIN AT THIS TIME. PATIENT STATED HE HAS A COUGH BUT IT IS NOT NEW. RESPS EVEN AND UNLABORED. PATIENT DENIES NEEDS AT THIS TIME. CALL LIGHT IN REACH.
--- NOTE | 2021-05-03 12:05 | NUR ---
PATIENT IS RESTING IN BED. MEDICATED PATIENT WTIH STEPHY FOR HIS COUGH. PATIENT DENIES ANY OTHER NEEDS AT THIS TIME. CALL LIGHT IN REACH.
[2021-05-03 12:26] LABS: ALBUMIN 3.4 g/dL (3.2-5.0); ALKALINE PHOSPHATASE 84 u/l (38-126); ANION GAP 14 (6-22 (CALC)); BILIRUBIN, TOTAL 0.5 mg/dL (0.0-1.4); BUN 11 mg/dL (9-20); BUN/CREATININE RATIO 21 (12-20 (CALC)); CARBON DIOXIDE 17 mmol/l (22-30); CHLORIDE 108 mmol/l (95-108); CREATININE 0.6 mg/dL (0.7-1.3); GFR > 60 ML/MIN (>=60 (CALC)); GFR FOR AFR.AMER. > 60 ML/MIN (>=60 (CALC)); SGOT/AST 19 u/l (17-59); SODIUM 135 mmol/l (137-146); TOTAL PROTEIN 6.6 g/dL (6.3-8.2)
[2021-05-03 14:51] LABS: ALBUMIN 3.4 g/dL (3.2-5.0); ALKALINE PHOSPHATASE 91 u/l (38-126); ANION GAP 15 (6-22 (CALC)); BILIRUBIN, TOTAL 0.5 mg/dL (0.0-1.4); BUN 12 mg/dL (9-20); BUN/CREATININE RATIO 12 (12-20 (CALC)); CARBON DIOXIDE 19 mmol/l (22-30); CHLORIDE 106 mmol/l (95-108); GFR > 60 ML/MIN (>=60 (CALC)); GFR FOR AFR.AMER. > 60 ML/MIN (>=60 (CALC)); POTASSIUM 3.2 mmol/l (3.5-5.1); SGOT/AST 18 u/l (17-59); SODIUM 136 mmol/l (137-146); TOTAL PROTEIN 6.5 g/dL (6.3-8.2)
[2021-05-03 15:00] VITALS: BP 108/62
--- NOTE | 2021-05-03 16:09 | NUR ---
PATIENT IS RESTING WITH NO DISTRESS NOTED. PO FLUIDS PROVIDED. PATIENT DENIES ANY OTHER NEEDS AT THIS TIME. CALL LIGHT IN REACH.
[2021-05-03 18:26] LABS: ALBUMIN 3.4 g/dL (3.2-5.0); ALKALINE PHOSPHATASE 87 u/l (38-126); ANION GAP 14 (6-22 (CALC)); BILIRUBIN, TOTAL 0.5 mg/dL (0.0-1.4); BUN 11 mg/dL (9-20); BUN/CREATININE RATIO 16 (12-20 (CALC)); CARBON DIOXIDE 19 mmol/l (22-30); CHLORIDE 105 mmol/l (95-108); CREATININE 0.7 mg/dL (0.7-1.3); GFR > 60 ML/MIN (>=60 (CALC)); GFR FOR AFR.AMER. > 60 ML/MIN (>=60 (CALC)); POTASSIUM 3.1 mmol/l (3.5-5.1); SGOT/AST 18 u/l (17-59); SODIUM 135 mmol/l (137-146); TOTAL PROTEIN 6.6 g/dL (6.3-8.2)
[2021-05-03 19:09] VITALS: BP 104/61
--- NOTE | 2021-05-03 20:00 | NUR ---
PATIENT RESTING IN BED AT THIS TIME-AWAKE ALERT AND ORIENTEDX3. PATIENT WITH C/O H/A-WILL CALL MD FOR SOMETHING FOR PAIN. IVF NS WITH KCL 40MEQ PATENT AND INFUSING VIA RAC AT 75CC/HR. SITE IS HEALTHY AT THIS TIME. LUNGS ARE CLEAR. ABD IS SOFT WITH ACTIVE BS. VOIDING CLEAR YELLOW URINE IN URINAL. NO PERIPHERAL EDEMA NOTED. PULSES ARE PALPABLE. SAFETY PRECAUTIONS REINFORCED. CALL LIGHT IN REACH. WILL CONT TO MONITOR.
--- NOTE | 2021-05-03 21:00 | NUR ---
FAMILY BROUGHT BAG IN FOR PATIENT WITH 3 LARGE COCA-COLA DRINKS IN IT. PATIENT ADVISED THAT HE CAN'T HAVE REGULAR COKES DUE TO HIS UNSTABLE DIAB. DRINKS WERE PUT IN HIS CLOSET. PATIENT EDUCATED REGUARDING CONTROLLING HIS BLOOD SUGARS AND FOLLOWING A DIAB SIET. VERBALIZES UNDERSTANDING. ACCU-CHECK WAS 230-COVERED WITH 3UNITS OF HUMALOG SQ PER SS COVERAGE SCALE. ALSO MEDICATED WITH LEVEMIR 50UNITS SCHEDULED. PATIENT PROVIDED WITH HS SNACK OF VANILLA PUDDING AND DIET COLA. CALL LIGHT IN REACH. WILL CONT TO MONITOR.
--- NOTE | 2021-05-03 21:42 | NUR ---
PATIENT RESTING IN BED AT THIS TIME-MEDICATED FOR HEADACHE WITH TYLENOL 650MG PO FOR 8/10 ON PAIN SCALE. MEDICATED WITH ROBITUSSIN AC 5CC ORDERED FOR NON-PRODUCTIVE COUGH. PATIENT DID EAT HS SNACK. VOIDING QS CLEAR YELLOW URINE IN URINAL. CALL LIGHT IN REACH. WILL CONT TO MONITOR.
[2021-05-04] VITALS: BP 92/45
--- NOTE | 2021-05-04 00:46 | NUR ---
PATIENT RESTING IN BED AT THIS TIME-EYES ARE CLOSED. RESPS ARE EVEN AND UNLABORED. IVF NS 40MEQ KCL AT 75CC/HR VIA RAC. CALL LIGHT IN REACH. WILL CONT TO MONITOR.
[2021-05-04 04:00] VITALS: BP 100/63
--- NOTE | 2021-05-04 04:08 | NUR ---
PATIENT RESTING IN BED WITH EYES CLOSED. RESPS ARE EVEN AND UNLABORED. IVF PATENT AND INFUSING VIA RAC SITE. CALL LIGHT IN REACH. WILL CONT TO MONITOR.
[2021-05-04 05:47] LABS: HEMATOCRIT 40.2 % (39.0-50.0); HEMOGLOBIN 13.7 g/dl (14.0-18.0); MEAN CELL VOLUME 89.3 fL CALC (80.0-100.0); MEAN CORPUSCULAR HGB 30.4 pG CALC (26.0-32.0); MEAN CORPUSCULAR HGB CONC 34.1 g/dL CAL (32.0-36.0); RED BLOOD COUNT 4.5 mill/uL (4.70-6.10); RED CELL DISTRI WIDTH 14.9 % (11.5-15.5)
[2021-05-04 05:55] LABS: ALBUMIN 3.1 g/dL (3.2-5.0); ALKALINE PHOSPHATASE 74 u/l (38-126); ANION GAP 14 (6-22 (CALC)); BILIRUBIN, TOTAL 0.4 mg/dL (0.0-1.4); BUN 13 mg/dL (9-20); BUN/CREATININE RATIO 27 (12-20 (CALC)); CARBON DIOXIDE 18 mmol/l (22-30); CHLORIDE 107 mmol/l (95-108); CREATININE 0.5 mg/dL (0.7-1.3); GFR > 60 ML/MIN (>=60 (CALC)); GFR FOR AFR.AMER. > 60 ML/MIN (>=60 (CALC)); MAGNESIUM 1.8 mg/dL (1.6-2.3); POTASSIUM 2.8 mmol/l (3.5-5.1); SGOT/AST 15 u/l (17-59); SODIUM 137 mmol/l (137-146); TOTAL PROTEIN 6.2 g/dL (6.3-8.2)
[2021-05-04 07:54] VITALS: BP 101/61
--- NOTE | 2021-05-04 07:59 | NUR ---
PATIENT IS RESTING IN BED. ASSESSMENT DONE. PATIENT IS ALERT AND ORIENT X3. PATIENT STATED HE HAS A HEADACHE. MEDICATED PATIENT WITH TYLENOL. PATIENT STATED STILL HAS A COUGH. RESPS EVEN UNLABORED. PATIENT STATED HE WANTS TO TAKE A SHOWER LATER TODAY. PATIENT DENIES ANY OTHER NEEDS AT THIS TIME. CALL LIGHT IN REACH.
--- NOTE | 2021-05-04 11:45 | NUR ---
PATIENT IS SITTING IN THE COUCH WITH NO DISTRESS NOTED. PATIENT DENIES NEEDS AT THIS TIME. CALL LIGHT IN REACH.
[2021-05-04 14:30] VITALS: BP 109/70
--- NOTE | 2021-05-04 15:55 | NUR ---
PATIENT IS RESTING IN BED WITH NO DISTRESS NOTED. PATIENT DENIES NEEDS AT THIS TIME. CALL LIGHT IN REACH.
[2021-05-04 20:00] VITALS: BP 111/64
--- NOTE | 2021-05-04 20:00 | NUR ---
PATIENT SITTING UP ON THE COUCH IN HIS ROOM-AWAKE ALERT AND ORIENTEDX3. PATIENT WITH NO COMPLAINTS AT THIS TIME-DRINKING DIET COKE AT THIS TIME. IVF NS 40KCL PATENT AND INFUSING VIA RIGHT AC SITE AT 75CC/HR. SITE REMAINS HEALTHY AT THIS TIME,. VOIDING CLEAR YELLOW URINE IN URINAL. LUNGS ARE CLEAR. ABD IS SOFT WITH BS+. NO SWELLING NOTED. CALL LIGHT IN REACH. WILL CONT TO MONITOR.
--- NOTE | 2021-05-04 21:30 | NUR ---
PATIENT RESTING IN [id number] IS 248 TONIGHT. PATIENT COVERED WITH 3UNITS OF HUMALOG PER SLIDING SCALE COVERAGE PROTOCOL. LEVEMIR 50UNITS SQ GIVEN SCHEDULED. HS SNACK PROVIDED. CALL LIGHT IN REACH. WILL CONT TO MONITOR.
--- NOTE | 2021-05-04 22:30 | NUR ---
PATIENT SITTING UP ON COUCH IN HIS ROOM-AWAKE ALERT AND ORIENTEDX3. PATIENT WITH NO COMPLAINTS AT THIS TIME. DRINKING DIET COKE AT THIS TIME. IVF NS 40KCL IS PATENT AND INFUSING VIA RIGHT AC SITE AT 75CC/HR. SITE REMAINS HEALTHY AT THIS TIME. VOIDING CLEAR YELLOW URINE IN URINAL. LUNGS ARE CLEAR. ABD IS SOFTR WITH BS+. NO SWELLING NOTED. CALL LIGHT IN REACH. WILL CONT TO MONITOR.
--- NOTE | 2021-05-05 01:09 | NUR ---
PATIENT RESTING IN BED-NEW BAG OF IVF NS 40KCL HUNG AND INFUSING AT 75CC/HR VIA RAC SITE. CONT TO VOID QS CLEAR YELLOW URINE IN URINAL. NO NEEDS VOICED. CALL LIGHT IN REACH. WILL CONT TO MONITOR.
--- NOTE | 2021-05-05 04:18 | NUR ---
PATIENT RESTING IN BED AT THIS TIME WITH EYES CLOSED. RESPS ARE EVEN AND UNLABORED. IVF PATENT AND INFUSING VIA RAC SITE AT 75CC/HR. CALL LIGHT IN REACH. WILL CONT TO MONITOR.
[2021-05-05 05:18] VITALS: BP 99/56
[2021-05-05 05:33] LABS: HEMATOCRIT 40.4 % (39.0-50.0); HEMOGLOBIN 13.7 g/dl (14.0-18.0); MEAN CELL VOLUME 91.2 fL CALC (80.0-100.0); MEAN CORPUSCULAR HGB 30.9 pG CALC (26.0-32.0); MEAN CORPUSCULAR HGB CONC 33.9 g/dL CAL (32.0-36.0); RED BLOOD COUNT 4.43 mill/uL (4.70-6.10); RED CELL DISTRI WIDTH 14.3 % (11.5-15.5)
[2021-05-05 05:48] LABS: ALBUMIN 3.3 g/dL (3.2-5.0); ALKALINE PHOSPHATASE 80 u/l (38-126); BILIRUBIN, TOTAL 0.4 mg/dL (0.0-1.4); BUN 12 mg/dL (9-20); BUN/CREATININE RATIO 22 (12-20 (CALC)); CHLORIDE 103 mmol/l (95-108); CREATININE 0.5 mg/dL (0.7-1.3); GFR > 60 ML/MIN (>=60 (CALC)); GFR FOR AFR.AMER. > 60 ML/MIN (>=60 (CALC)); SGOT/AST 18 u/l (17-59); SODIUM 137 mmol/l (137-146); TOTAL PROTEIN 6.5 g/dL (6.3-8.2)
[2021-05-05 05:55] LABS: ANION GAP 16 (6-22 (CALC)); CARBON DIOXIDE 22 mmol/l (22-30); POTASSIUM 3.6 mmol/l (3.5-5.1)
[2021-05-05 07:04] VITALS: BP 100/64
--- NOTE | 2021-05-05 07:09 | NUR ---
ASSESSMENT DONE. PATIENT IS ALERT AND OREINT X3. PATIENT STATED HE HAS A HEADACHE MEDICATED PATIENT WITH TYLENOL. RESPS EVEN AND UNLABORED. SETUP PATIENT FOR A SHOWER. PATIENT STATED HE HAD A BM YESTERDAY. PATIENT DENIES ANY OTHER NEEDS AT THIS TIME. CALL LIGHT IN REACH.
--- NOTE | 2021-05-05 12:00 | NUR ---
PATIENT IS EATING HIS LUNCH WITH NO DISTRESS NOTED. PATIENT DENIES NEEDS AT THIS TIME. CALL LIGHT IN REACH.
--- NOTE | 2021-05-05 13:47 | NUR ---
Discharge instructions given. Patient verbalizes understanding of same. Discharged in stable condition via Ambulatory to Home with staff. All belongings sent with pt.
== END 2021-05-05 13:46 | disposition home or self-care (01) | DRG 639 ==
LOC: ED 22:33 → ED-I 23:36 → ED 05-02 00:27 → ED-I 05-02 00:28 → MS2 05-02 00:28
PROVIDERS: Family Medicine; Nurse Practitioner; Nurse Practitioner Family; ADMIT Hospitalist; ATTEND Internal Medicine
DX: E10.10 Type 1 diabetes mellitus with ketoacidosis without coma (principal); T38.3X6A Underdosing of insulin and oral hypoglycemic [antidiabetic] drugs, initial encounter; E87.6 Hypokalemia; F17.210 Nicotine dependence, cigarettes, uncomplicated; Z91.128 Patient's intentional underdosing of medication regimen for other reason; Z91.11 Patient's noncompliance with dietary regimen; Z79.4 Long term (current) use of insulin; Z20.822 Contact with and (suspected) exposure to COVID-19
CPT/HCPCS: J1650; J3475

== ENCOUNTER 2022-02-16 16:21 | Inpatient (IN) | payer SELFPAY ==
[2022-02-16] VITALS (23 sets, daily range): BP systolic 115–145; BP diastolic 73–103
[~2022-02-16] VITALS: Ht 165.1 cm; Wt 63.5 kg
[~2022-02-16 16:21] MED LIST changes: +JANUVIA100 MG PO; +K-TAB20 MEQ PO; +LEVEMIR FL100 UNIT/M SC; +PROTONIX40 M2 PO
--- NOTE | 2022-02-16 16:21 | NUR ---
PT TO ROOM VIA EMS STRETCHER
[2022-02-16 16:47] LABS: BASO% 0 % (0-3); EOS% 0 % (0-8); HEMATOCRIT 47.1 % (39.0-50.0); IMMATURE GRANULOCYTES 4.8 % (0.0-5.0); LYMPH% 10 % (15-41); MEAN CELL VOLUME 101.1 fL CALC (80.0-100.0); MEAN CORPUSCULAR HGB 32.2 pG CALC (26.0-32.0); MEAN CORPUSCULAR HGB CONC 31.8 g/dL CAL (32.0-36.0); MONO% 4 % (2-13); NEUT# 10.81 thou/uL (1.82-7.42); NEUT% 81 % (42-76); RED BLOOD COUNT 4.66 mill/uL (4.70-6.10); RED CELL DISTRI WIDTH 12.4 % (11.5-15.5)
[2022-02-16 16:48] LABS: PLATELET COUNT 192 thou/uL (130-400)
[2022-02-16 16:57] LABS: GFR FOR AFR.AMER. > 60 ML/MIN (>=60 (CALC)); GFR OTHER RACES > 60 ML/MIN (>=60 (CALC))
[2022-02-16 17:10] LABS: ALBUMIN 3.9 g/dL (3.2-5.0); BILIRUBIN, TOTAL 0.5 mg/dL (0.0-1.4); BUN 6 mg/dL (9-20); BUN/CREATININE RATIO 8 (12-20 (CALC)); CHLORIDE 109 mmol/l (95-108); CREATININE 0.8 mg/dL (0.7-1.3); GFR FOR AFR.AMER. > 60 ML/MIN (>=60 (CALC)); GFR OTHER RACES > 60 ML/MIN (>=60 (CALC)); LIPASE 63 u/l (23-300); MAGNESIUM 2.1 mg/dL (1.6-2.3); POTASSIUM 4.1 mmol/l (3.5-5.1); SODIUM 133 mmol/l (137-146); TOTAL PROTEIN 7.5 g/dL (6.3-8.2)
[2022-02-16 17:12] LABS: ALKALINE PHOSPHATASE 123 u/l (38-126); ANION GAP 23 (6-22 (CALC)); SGOT/AST 36 u/l (17-59)
[2022-02-16 17:13] LABS: CARBON DIOXIDE < 5 mmol/l (22-30)
--- NOTE | 2022-02-16 17:20 | NUR ---
PT RESTING ON STRETCHER; MONITORING DEVICES IN PLACE; ADVISED ON POC
[2022-02-16 18:05] LABS: URINE BILIRUBIN - DIPSTICK NEGATIVE (NEGATIVE); URINE BLOOD DIPSTICK TRACE-INTACT (NEGATIVE); URINE COLOR YELLOW; URINE GLUCOSE - DIPSTICK >=1000 mg/dL (NEGATIVE); URINE KETONE >=80 mg/dL (NEGATIVE); URINE LEUK ESTERASE NEGATIVE (NEGATIVE); URINE NITRITE - DIPSTICK NEGATIVE (Negative); URINE PH 5.5 (4.5-8.0); URINE PROTEIN - DIPSTICK 30 mg/dL (NEG-TRACE); URINE SPECIFIC GRAVITY 1.025; URINE UROBILINOGEN - DIPSTICK 0.2 E.U./dL (0.2)
[2022-02-16 18:11] LABS: URINE RBC 0-2 RBC/hpf (0-5)
[2022-02-16 18:12] LABS: URINE MUCUS RARE hpf (NONE-FEW)
--- NOTE | 2022-02-16 18:20 | NUR ---
PT MEDICATED PER MAR; ADVISED ON POC
--- NOTE | 2022-02-16 18:45 | NUR ---
INSULIN DRIP STARTED AT THIS TIME; ADVISED ON PENDING ADMISSION
[2022-02-16 19:13] LABS: BUN 6 mg/dL (9-20); BUN/CREATININE RATIO 9 (12-20 (CALC)); CHLORIDE 109 mmol/l (95-108); CREATININE 0.7 mg/dL (0.7-1.3); GFR FOR AFR.AMER. > 60 ML/MIN (>=60 (CALC)); GFR OTHER RACES > 60 ML/MIN (>=60 (CALC)); POTASSIUM 4.1 mmol/l (3.5-5.1); SODIUM 135 mmol/l (137-146)
[2022-02-16 19:20] LABS: ANION GAP 25 (6-22 (CALC)); CARBON DIOXIDE < 5 mmol/l (22-30)
--- NOTE | 2022-02-16 20:00 | NUR ---
PT ARRIVED TO UNIT FROM ER VIA STRETCHER. INSULIN DRIP RUNNING AT 4 UNITS/HR, POTASSIUM IV FIRST DOSE, CALCIUM GLUCONATE, AND FINISHING UP AN LR BOLUS. PT WAS ABLE TO AMBULATE TO BED WITHOUT ASSISTANCE. PT ALERT AND ORIENTED. NOT FLUENT IN PITCAIRN ISLANDER BUT ABLE TO UNSTAND WHEN SPOKEN TO. PT INCREASE RATE OF BREATHING, BUT O2SAT AND OTHER VITAL SIGNS ARE WITHIN NORMAL LIMITS. PT DOES NOT LOOK TO BE IN ANY VISIBLE DISTRESS AND DENIES ANY PAIN AT THIS TIME. DURING ASSESSMENT PT REPORTED HAVING ABOUT 20 BEERS A DAY AND LAST DRINK WAS YESTERDAY. PT DENIES ANY ABUSE OF ANY OTHER SUBSTANCES. PT HAS HIS BAG, SANDALS, SHORTS, BESSIE SHIRT, AND CELL PHONE AT BEDSIDE. ASKED PT IF HE HAD ANYTHING ELSE OF SIGNIFICANT VALUE THAT MAY NEED TO BE LOCKED AWAY FOR SAFETY, PT DENIES THIS AND ASKED FOR HIS BELONGINGS TO REMAIN NEXT TO HIM AT BEDSIDE. PT EDUCATED ON HOW TO CALL FOR ASSISTANCE AND THIS WAS DEMINSTRATED. SAFETY PRECAUTIONS ARE IN PLACE. CALL LIGHT AND PERSONAL BELONGINGS WITHIN REACH. PT BEING CLOSELY MONITORED.
--- NOTE | 2022-02-16 20:00 | NUR ---
Admission Note Report Given to: ALFONZO OLIVARES Transported by: Wheelchair X Stretcher Transported with: X Nurse Transporter X Patent IV O2 X Oil Expert Location: X ICU MS2
[2022-02-16 23:21] LABS: BUN 6 mg/dL (9-20); BUN/CREATININE RATIO 8 (12-20 (CALC)); CHLORIDE 114 mmol/l (95-108); CREATININE 0.8 mg/dL (0.7-1.3); GFR FOR AFR.AMER. > 60 ML/MIN (>=60 (CALC)); GFR OTHER RACES > 60 ML/MIN (>=60 (CALC)); POTASSIUM 4.9 mmol/l (3.5-5.1); SODIUM 138 mmol/l (137-146)
[2022-02-16 23:24] LABS: ANION GAP 24 (6-22 (CALC)); CARBON DIOXIDE < 5 mmol/l (22-30)
[2022-02-17] VITALS (95 sets, daily range): BP systolic 97–142; BP diastolic 57–92
--- NOTE | 2022-02-17 | NUR ---
SHIFT REASSESSMENT - CONTACTED REGARDING PTS CRITICAL CO2 LESS THAN 5. ORDER RECEIVED TO REPEAT ABG. RESULTS SENT TO FOR REVIEW. PT RESTING COMFORTABLE AT THIS TIME. REMAINS ON INSULIN DRIP. ANION GAP OPEN AND K+ 4.9. VITAL SIGNS WITHIN NORMAL LIMITS. PT BEING CLOSELY MONITORED.
[2022-02-17 03:31] LABS: BUN 7 mg/dL (9-20); BUN/CREATININE RATIO 8 (12-20 (CALC)); CHLORIDE 114 mmol/l (95-108); CREATININE 0.8 mg/dL (0.7-1.3); GFR FOR AFR.AMER. > 60 ML/MIN (>=60 (CALC)); GFR OTHER RACES > 60 ML/MIN (>=60 (CALC)); POTASSIUM 4.7 mmol/l (3.5-5.1); SODIUM 137 mmol/l (137-146)
[2022-02-17 03:34] LABS: ANION GAP 23 (6-22 (CALC)); CARBON DIOXIDE < 5 mmol/l (22-30)
--- NOTE | 2022-02-17 06:00 | NUR ---
RECEIVED ORDER FROM TO REPEAT THE ABG. SENT RESULTS. NO NEW ORDERS AT THIS TIME. WILL CONTINUE TO MONITOR.
[2022-02-17 06:34] LABS: HEMATOCRIT 47.6 % (39.0-50.0); HEMOGLOBIN 15.4 g/dl (14.0-18.0); IMMATURE GRANULOCYTES 2.5 % (0.0-5.0); MEAN CELL VOLUME 97.3 fL CALC (80.0-100.0); MEAN CORPUSCULAR HGB 31.5 pG CALC (26.0-32.0); MEAN CORPUSCULAR HGB CONC 32.4 g/dL CAL (32.0-36.0); NEUT# 11.85 thou/uL (1.82-7.42); RED BLOOD COUNT 4.89 mill/uL (4.70-6.10); RED CELL DISTRI WIDTH 12.3 % (11.5-15.5)
[2022-02-17 06:49] LABS: ALBUMIN 4.2 g/dL (3.2-5.0); ALKALINE PHOSPHATASE 117 u/l (38-126); BILIRUBIN, TOTAL 0.6 mg/dL (0.0-1.4); BUN 8 mg/dL (9-20); BUN/CREATININE RATIO 10 (12-20 (CALC)); CHLORIDE 113 mmol/l (95-108); CREATININE 0.8 mg/dL (0.7-1.3); GFR FOR AFR.AMER. > 60 ML/MIN (>=60 (CALC)); GFR OTHER RACES > 60 ML/MIN (>=60 (CALC)); POTASSIUM 4.5 mmol/l (3.5-5.1); SGOT/AST 36 u/l (17-59); SODIUM 136 mmol/l (137-146); TOTAL PROTEIN 7.7 g/dL (6.3-8.2)
[2022-02-17 06:52] LABS: ANION GAP 23 (6-22 (CALC)); CARBON DIOXIDE < 5 mmol/l (22-30)
--- NOTE | 2022-02-17 07:25 | NUR ---
PT SEEN AT REST IN THE BED, NO ACUTE DISTRESS. BS 239 AT 0700, SO INSULIN DRIP CONTINUES AT 3 UNITS HOURLY.
--- NOTE | 2022-02-17 09:19 | NUR ---
PT SEEN BY DR ROSE THIS MORNING. ABG DONE. CT THORAX ORDERED. NYSTATIN AND BANANA BAG ORDERED. PT REMAINS AT REST IN THE BED, NO DISTRESS. LATEST BLOOD SUGAR WAS 274.
[2022-02-17 11:27] LABS: BUN 12 mg/dL (9-20); BUN/CREATININE RATIO 11 (12-20 (CALC)); CHLORIDE 115 mmol/l (95-108); CREATININE 1.1 mg/dL (0.7-1.3); GFR FOR AFR.AMER. > 60 ML/MIN (>=60 (CALC)); GFR OTHER RACES > 60 ML/MIN (>=60 (CALC)); POTASSIUM 3.7 mmol/l (3.5-5.1); SODIUM 135 mmol/l (137-146)
[2022-02-17 11:28] LABS: ANION GAP 18 (6-22 (CALC)); CARBON DIOXIDE 6 mmol/l (22-30)
--- NOTE | 2022-02-17 12:33 | NUR ---
PT CONTINUES TO REST QUIETLY IN THE BED, NO DISTRESS OR COMPLAINTS. IVF IS 0.45NS AT 50 WHILE BANANA BAG RUNS AT 100 TO EQUAL 150 ML/HR. PT TO CT AND BACK WITHOUT A PROBLEM.
[2022-02-17 15:34] LABS: CREATININE 1.6 mg/dL (0.7-1.3); POTASSIUM 3.5 mmol/l (3.5-5.1)
--- NOTE | 2022-02-17 16:06 | NUR ---
ACCUCHECKS TRENDING DOWNWARD, NOW 177. PT REMAINS DROWSY, RESTS IN THE BED IN NO ACUTE DISTRESS.
--- NOTE | 2022-02-17 17:43 | NUR ---
PT DID NOT VOID FOR SEVERAL HOURS. BLADDER SCAN SHOWED 472. PT AMBULATED TO BR, VOIDED 450 AND HAD BM. CLEAR LIQUID DIABETIC TRAY PROVIDED PER DOCTOR ORDER.
[2022-02-17 19:09] LABS: CREATININE 1.9 mg/dL (0.7-1.3); POTASSIUM 3.5 mmol/l (3.5-5.1)
--- NOTE | 2022-02-17 20:14 | NUR ---
PT RESTING IN BED ON CONTINUOUS INSULIN GTT WHICH WAS TITRATED DOWN TO 1U/HR DUE TO 130 BG, DR. GREY NOTIFIED OF PTS CLIMBING CREATININE OF 1.9, NO NEW ORDERS RECIEVED, WILL CONTINUE WITH BGL CHECKS Q 1HR. PT IS AOX3, NO COMPLAINTS AT THIS TIME, NO PAIN. VSS, BED IN LOW POSITION WITH CALL LIGHT IN REACH
--- NOTE | 2022-02-17 21:05 | NUR ---
PT RESTING, GTT CONTINUES 1U/HR AND BG 120. NO COMPLAINTS AT THIS TIME. LR INFUSING
--- NOTE | 2022-02-17 22:22 | NUR ---
PT IS RESTING QUIETLY, BG 129, GTT STILL PATENT AT 1U/HR INSULIN
[2022-02-17 23:23] LABS: CREATININE 2.3 mg/dL (0.7-1.3); POTASSIUM 3.1 mmol/l (3.5-5.1)
--- NOTE | 2022-02-17 23:51 | NUR ---
PT RESTING, WOKE PT UP TO ASK IF HE CAN URINATE SINCE THE LAST TIME WAS AT SHIFT CHANGE, STATES HE DOES NOT FEEL THE URGE TO GO RIGHT NOW. WILL CONTINUE TO MONITOR CLOSELY
[2022-02-18] VITALS (95 sets, daily range): BP systolic 88–127; BP diastolic 46–88
--- NOTE | 2022-02-18 01:15 | NUR ---
BG 138, PT VOIDED 650 CLEAR YELLOW URINE
--- NOTE | 2022-02-18 02:29 | NUR ---
BG 194 GTT TITRATED PER PROTOCOL TO 2U/HR, PT RESTING
[2022-02-18 05:42] LABS: HEMOGLOBIN 13.6 g/dl (14.0-18.0); MEAN CELL VOLUME 96.2 fL CALC (80.0-100.0); MEAN CORPUSCULAR HGB 32.5 pG CALC (26.0-32.0); MEAN CORPUSCULAR HGB CONC 33.8 g/dL CAL (32.0-36.0); RED BLOOD COUNT 4.18 mill/uL (4.70-6.10); RED CELL DISTRI WIDTH 12.8 % (11.5-15.5)
[2022-02-18 05:50] LABS: HEMATOCRIT 40.2 % (39.0-50.0)
[2022-02-18 05:55] LABS: BILIRUBIN, TOTAL 0.5 mg/dL (0.0-1.4); CREATININE 3.1 mg/dL (0.7-1.3); MAGNESIUM 1.9 mg/dL (1.6-2.3); POTASSIUM 3.4 mmol/l (3.5-5.1)
[2022-02-18 06:03] LABS: TOTAL PROTEIN 5.9 g/dL (6.3-8.2)
--- NOTE | 2022-02-18 06:40 | NUR ---
R'CD REPORT FROM ALFONZO AKHTAR. PT IS SLEEPING, INSULIN DRIP HAS BEEN TURNED OFF, INUSLIN WAS GIVEN BY PM SHIFT. PT IS A&O, PT HAS NO C/O PAIN, SOB. PT HAS SAFTEY PRECAUTIONS IN PLACE, CALL LIGHT IS NEAR. WILL CONTINUE TO MONITOR.
--- NOTE | 2022-02-18 08:00 | NUR ---
PT IS SITTING UP IN BED GROANING OF 10/10 PAIN TO WHOLE BODY. PT IS EXP N/V, ANXIOUS, AND AGITATED. PT IS SWEATING. PHYS ON UNIT, PLACING NEW ORDERS. PT HAD C/O LAC IV. IV WAS REMOVED.
--- NOTE | 2022-02-18 08:40 | NUR ---
PT IS SLEEPING, SNORING LOUDLY. MEDICATION EFFECTIVE.
--- NOTE | 2022-02-18 10:00 | NUR ---
PT HAS BEEN TRANSPORTED FOR XRAY, PT STATES HE FEELS BETTER, PAIN IS GONE. PT LINENS CHANGED, WATER PROVIDED. PT HAS CALL LIGHT NEAR AND WILL CONTINUE TO MONITOR.
--- NOTE | 2022-02-18 12:17 | NUR ---
PT IS SLEEPING, SNORING LOUDLY. PT HAS NO C/O PAIN AT THIS TIME. NO CHANGE TO PT ASSESSMENT AT THIS TIME. WILL CONTINUE TO MONITOR.
[2022-02-18 13:36] LABS: BILIRUBIN, TOTAL 0.5 mg/dL (0.0-1.4)
[2022-02-18 13:37] LABS: CREATININE 4.1 mg/dL (0.7-1.3); POTASSIUM 4.2 mmol/l (3.5-5.1)
[2022-02-18 13:38] LABS: ALBUMIN 3.8 g/dL (3.2-5.0); TOTAL PROTEIN 7.2 g/dL (6.3-8.2)
--- NOTE | 2022-02-18 13:45 | NUR ---
R'CD CRITCAL LAB RESULTS, REPORTED TO DR. GAUTHIER, NEW ORDERS R'CD.
--- NOTE | 2022-02-18 17:00 | NUR ---
SPOKE TO PHYS. NEW ORDERS R'CD. PT NPO, STRICT I&O'S. GAYATRI PLACED.
[2022-02-18 17:25] LABS: CREATININE 4.1 mg/dL (0.7-1.3); POTASSIUM 3.2 mmol/l (3.5-5.1)
--- NOTE | 2022-02-18 19:36 | NUR ---
RECEIVED REPORT FROM YANA PEREZ RN. PT RESTING IN BED WITH EYES CLOSED, REGULAR CHEST RISE AND FALL, NO SIGN OF ACUTE DISTRESS. LAST SET OF VITALS TAKEN AT 1900 STABLE, WNL. SEE VS FLOWSHEET. IVF INSULIN INFUSING AT PRESCRIBED RATE, IV SITE WITHOUT REDNESS, EDEMA, OR STREAKING, DRESSING CDI. BED IS AT IT LOWEST, LOCKED POSITION WITH SIDE RAILS UP X2. PATIENTS BELONGINGS AT BEDSIDE. CALL LIGHT IN REACH.
--- NOTE | 2022-02-18 19:43 | NUR ---
RECEIVED REPORT FROM Lizandro PEREZ RN. PT RESTING IN BED WITH EYES CLOSED, REGULAR CHEST RISE AND FALL, NO SIGN OF ACUTE DISTRESS. LAST SET OF VITALS TAKEN AT 1900 STABLE, WNL. SEE VS FLOWSHEET. IVF INSULIN INFUSING AT PRESCRIBED RATE, IV SITE WITHOUT REDNESS, EDEMA, OR STREAKING, DRESSING CDI. BED IS AT IT LOWEST, LOCKED POSITION WITH SIDE RAILS UP X2. PATIENTS BELONGINGS AT BEDSIDE. CALL LIGHT IN REACH.
--- NOTE | 2022-02-18 20:02 | NUR ---
PHLEBOTOMY (ELISSA) IN WITH PT DRAWING LABS.
[2022-02-18 20:22] LABS: POTASSIUM 3.2 mmol/l (3.5-5.1)
--- NOTE | 2022-02-18 20:38 | NUR ---
NOTIFIED PA. APRIL LOPEZ OF A CRITICAL LAB VALUE OF 9. NO NEW ORDERS.
--- NOTE | 2022-02-18 22:16 | NUR ---
ACCUCHECKS PREFORMED HOURLY. GLUCOSE 91. TURNED OFF INSULIN DRIP.
[2022-02-19] VITALS (95 sets, daily range): BP systolic 85–138; BP diastolic 50–90
--- NOTE | 2022-02-19 | NUR ---
PHLEBOTOMY IN PTS ROOM GATHERING 0000 LABS.
--- NOTE | 2022-02-19 00:15 | NUR ---
PT WAS FOUND SLEEPING IN BED; PT AROUSED TO VERBAL STIMULI; PT IS A&OX3; PT HAS NO REPORTS OF PAIN AT THIS TIME; SAFETY PRECAUTIONS IN PLACE; CALL LIGHT WITHIN REACH; PT ENCOURAGED TO CALL WITH ANY ISSUES.
[2022-02-19 01:04] LABS: CREATININE 4.4 mg/dL (0.7-1.3); POTASSIUM 3.3 mmol/l (3.5-5.1)
--- NOTE | 2022-02-19 01:11 | NUR ---
SPOKE TO ELISSA IN LAB; REPORTS A DELAY IN RESULTS.
--- NOTE | 2022-02-19 01:15 | NUR ---
REPORTED CRITICAL LAB VALUE TO PA. APRIL KRUEGER. VALUE CO2 7. PAASKED IF PT WAS STABLE. NO NEW ORDERS GIVEN AT THIS TIME.
--- NOTE | 2022-02-19 04:00 | NUR ---
PT SEEN RESTING IN BED. INSULIN RUNNING AT 2 UNITS, WILL CONTINUE WITH BGL CHECKS Q 1HR. NO COMPLAINTS AT THIS TIME, NO PAIN. VSS, BED IN LOW POSITION AND CALL LIGHT WITHIN REACH.
[2022-02-19 05:32] LABS: HEMATOCRIT 42.2 % (39.0-50.0); HEMOGLOBIN 13.7 g/dl (14.0-18.0); MEAN CELL VOLUME 98.8 fL CALC (80.0-100.0); MEAN CORPUSCULAR HGB 32.1 pG CALC (26.0-32.0); MEAN CORPUSCULAR HGB CONC 32.5 g/dL CAL (32.0-36.0); RED BLOOD COUNT 4.27 mill/uL (4.70-6.10); RED CELL DISTRI WIDTH 12.9 % (11.5-15.5)
[2022-02-19 05:48] LABS: CREATININE 4.7 mg/dL (0.7-1.3); MAGNESIUM 2.1 mg/dL (1.6-2.3); POTASSIUM 3.3 mmol/l (3.5-5.1)
--- NOTE | 2022-02-19 09:25 | NUR ---
PT IS SEEN AT REST IN THE BED, BUT IS EASILY WAKENED AND APPROPRIATE. LUNGS CLEAR, RA. NO TREMORS OR OTHER DT SYMPTOMS EXCEPT FOR LIGHT SWEAT. PT IS MOSTLY CROATIAN SPEAKING. PT REMAINS NPO. MENDIETA IN PLACE. NO DISTRESS.
--- NOTE | 2022-02-19 12:59 | NUR ---
PT REMAINS AT REST IN THE BED, NO DISTRESS. FINGERSTICKS CONTINUE EVERY HOUR, LATEST CHECKS IN THE 100s.
[2022-02-19 13:10] LABS: ALBUMIN 3.1 g/dL (3.2-5.0); CREATININE 4.7 mg/dL (0.7-1.3); POTASSIUM 3.1 mmol/l (3.5-5.1)
--- NOTE | 2022-02-19 16:40 | NUR ---
PT ATE HIS CLEAR LIQUID DIET WELL FOR LUNCH. PT REMAINS AT REST IN THE BED, NO DISTRESS NOTED.
--- NOTE | 2022-02-19 18:05 | NUR ---
BS 108, INSULIN DRIP NOW AT 1 UNIT HOURLY. PT AWAKE, EATS HIS SUPPER.
[2022-02-19 18:48] LABS: ALBUMIN 3.1 g/dL (3.2-5.0); CREATININE 4.5 mg/dL (0.7-1.3)
--- NOTE | 2022-02-19 19:46 | NUR ---
RECEIVED REPORT FROM YANA ESPINOZA RN. PT RESTING IN BED WATCHING TV, REGULAR CHEST RISE AND FALL, NO SIGN OF ACUTE DISTRESS. LAST SET OF VITALS TAKEN AT 1900 STABLE, WNL. SEE VS FLOWSHEET. IVF INFUSING AT PRESCRIBED RATE, IV SITE WITHOUT REDNESS, EDEMA, OR STREAKING, DRESSING CDI. RA, SPO2> 96%. BED IS AT IT LOWEST, LOCKED POSITION WITH SIDE RAILS UP X2. PATIENTS BELONGINGS AT BEDSIDE. PTS MOTHER IS VISITING AT BEDSIDE. CALL LIGHT IN REACH.
--- NOTE | 2022-02-19 22:00 | NUR ---
CONTACTED DR AYALA REGARDING PTS INCREASING GLUCOSE NUMBERS. PLACED ORDER FOR 2O UNITS OF LEVEMIR AND SCHEDULED SLIDING SCALE. PT RESTING WITH EYES CLOSED IN STABLE CONDITION.
[2022-02-20] VITALS (63 sets, daily range): BP systolic 87–121; BP diastolic 53–87
--- NOTE | 2022-02-20 02:00 | NUR ---
PT IS SEEN SLEEPING, SNORING. PT HAS NO C/O PAIN AT THIS TIME. NO CHANGE TO PT ASSESSMENT AT THIS TIME. CALL DICK WITHIN REACH.
--- NOTE | 2022-02-20 04:13 | NUR ---
PT RESTING WITH EYES CLOSED; IN NO APPARENT DISTRESS; MENDIETA CATHETER IS SECURE AND FLOWING TO GRAVITY; SR WITH ON HEART MONITOR; IV IS INTACT AND PATENT; CALL LIGHT WITHIN REACH.
[2022-02-20 06:11] LABS: ALBUMIN 2.5 g/dL (3.2-5.0); CREATININE 3.9 mg/dL (0.7-1.3); POTASSIUM 2.8 mmol/l (3.5-5.1)
[2022-02-20 06:13] LABS: MAGNESIUM 1.5 mg/dL (1.6-2.3)
--- NOTE | 2022-02-20 09:08 | NUR ---
PT AWAKE, ALERT, ORIENTED X 3. LUNGS CLEAR, RA. PT ATE COMPLETE BREAKFAST. NO DISTRESS PT RESTS IN THE BED.
--- NOTE | 2022-02-20 13:29 | NUR ---
PT SEEN BY DR AYALA, CONTINUES FREE OF WITHDRAWAL SYMPTOMS.
--- NOTE | 2022-02-20 16:15 | NUR ---
PT TO BSC WITH STANDBY ASSIST, NO EVIDENCE OF DTs NOTED.
--- NOTE | 2022-02-20 20:33 | NUR ---
PATIENT RESTING IN BED SPEAKING ON CELL PHONE. NO COMPLAINTS AT THIS TIME. CALL DICK AND BEDSIDE TABLE WITHIN REACH. FALL PRECAUTIONS IN [place].
--- NOTE | 2022-02-21 | NUR ---
PATIENT SLEEPING. NO DISTRESS NOTED. CALL DICK WITHIN REACH. FALL PRECAUTIONS IN PLACE.
[2022-02-21 04:09] VITALS: BP 109/72
--- NOTE | 2022-02-21 04:15 | NUR ---
PATIENT RESTING IN BED. NO COMPLAINTS AT THIS TIME. FALL PRECAUTIONS IN PLACE. CALL DICK WITHIN REACH.
[2022-02-21 05:00] LABS: HEMATOCRIT 38.2 % (39.0-50.0); HEMOGLOBIN 13.4 g/dl (14.0-18.0); MEAN CELL VOLUME 93.6 fL CALC (80.0-100.0); MEAN CORPUSCULAR HGB 32.8 pG CALC (26.0-32.0); MEAN CORPUSCULAR HGB CONC 35.1 g/dL CAL (32.0-36.0); RED BLOOD COUNT 4.08 mill/uL (4.70-6.10); RED CELL DISTRI WIDTH 11.7 % (11.5-15.5)
[2022-02-21 05:19] LABS: CREATININE 3.1 mg/dL (0.7-1.3)
[2022-02-21 05:23] LABS: POTASSIUM 3.4 mmol/l (3.5-5.1)
[2022-02-21 06:39] VITALS: BP 112/80
--- NOTE | 2022-02-21 07:48 | NUR ---
PT RESTING IN BED, NO SIGNS OF DISTRESS NOTED,RESP EVEN AND UNLABORED. ALERT AND ORIENTED X3, DISCUSSED POC, PT VOICES NO NEEDS OR COMPLAINTS, MEDICATED PER MAR, IV FLUIDS WITH 20MEQ OF POTASSIUM INFUSING. ASSESSMENT COMPLETED, DISCUSSED POC, VERBALIZED UNDERSTANDING. PROVIDED TEACHING REGARDING DIABETES, CALL LIGHT IN REACH,CONTINUE TO MONITOR.
[2022-02-21 10:24] VITALS: BP 113/82
[2022-02-21 10:36] VITALS: BP 113/82
--- NOTE | 2022-02-21 11:11 | NUR ---
MD NOTIFIED OF BLOOD SUGAR 404, ORDERS ENTERED. DISCUSSED WITH PT VERBALIZED UNDERSTANDING. MEDICATED PER OCT, CALL LIGHT IN REACH,CONTINUE TO MONITOR.
[2022-02-21 16:25] VITALS: BP 115/86
--- NOTE | 2022-02-21 17:45 | NUR ---
PT AMBULATING IN ROOM, NO SIGNS OF DISTRESS NOTED, RESP EVEN AND UNLABORED. PT MEDICATED PER MD ALFREDO AWARE OF GLUCOSE METER CHECK, INSULIN GIVEN PER NEW ORDERS. VOICES NO NEEDS OR COMPLAINTS AT THIS TIME, CALL LIGHT IN REACH, CONTINUE TO MONITOR.
[2022-02-21 19:12] VITALS: BP 125/89
--- NOTE | 2022-02-21 20:15 | NUR ---
PATIENT AMBULATING IN ROOM. NO SIGNS OF DISTRESS NOTED. NO COMPLAINTS AT THIS TIME. FALL PRECAUTION EDUCATION PROVIDED; PATIENT STATES UNDERSTNDING. CALL DICK WITHIN REACH.
--- NOTE | 2022-02-22 | NUR ---
PATIENT SLEEPING. NO DISTRESS NOTED. CALL DICK WITHIN REACH. FALL PRECAUTIONS IN PLACE.
[2022-02-22 00:05] VITALS: BP 121/81
--- NOTE | 2022-02-22 04:17 | NUR ---
PATIENT SLEEPING. NO DISTRESS NOTED. CALL DICK WITHIN REACH. FALL PRECAUTION MAINTAINED.
[2022-02-22 05:16] LABS: HEMATOCRIT 34.2 % (39.0-50.0); HEMOGLOBIN 11.9 g/dl (14.0-18.0); IMMATURE GRANULOCYTES 0.4 % (0.0-5.0); MEAN CELL VOLUME 93.4 fL CALC (80.0-100.0); MEAN CORPUSCULAR HGB 32.5 pG CALC (26.0-32.0); MEAN CORPUSCULAR HGB CONC 34.8 g/dL CAL (32.0-36.0); NEUT# 2.09 thou/uL (1.82-7.42); RED BLOOD COUNT 3.66 mill/uL (4.70-6.10); RED CELL DISTRI WIDTH 11.9 % (11.5-15.5)
[2022-02-22 05:30] LABS: CREATININE 2.4 mg/dL (0.7-1.3); MAGNESIUM 1.7 mg/dL (1.6-2.3); POTASSIUM 3.7 mmol/l (3.5-5.1)
--- NOTE | 2022-02-22 06:39 | NUR ---
RECEIVED CRITICAL RESULT FOR GLUCOSE OF 532. PATIENT ASYMPTOMATIC. NOTIFIED DR. RUDD OF CRITICAL RESULT. PATIENT GIVEN 14 UNITS OF HUMOLOG AND 20 UNITS OF LEVEMIR PER ORDER. EDUCATED PATIENT ON THE IMPORTANCE OF COMPLIANCE WITH DIABETIC DIET. PATIENTS STATES UNDERSTANDING.
[2022-02-22 07:08] VITALS: BP 111/78
--- NOTE | 2022-02-22 08:00 | NUR ---
GOT REPORT FROM NIGHT NURSE. PATIENT ASSESSED. PATIENT IS AOX3. PATIENT BLOOD SUGAR IS VERY ELEVATED EVEN AFTER MEDICATION WAS GIVEN. PATIENT RECHECK IS 519. MD MADE AWARE, GIVEN AN ADDITIONAL MEDICATION TO PATIENT TO HELP BRING DOWN BLOOD SUGARS. MD ALSO MADE CHANGES TO HIS OTHER MEDICATION. SEE ORDERS FOR CHANGES. PATIENT WENT TO SIT ON COUCH NEAR THE WINDOW. I SITUATED PATIENT ROOM FOR CALL LIGHT AND BEDSIDE TABLE TO BE WITHIN REACH OF PATIENT. ADVISED TO CALL IF HE NEEDS ANYTHING. PATIENT VERBALIZED UNDERSTANDING.
[2022-02-22 10:55] VITALS: BP 109/82
--- NOTE | 2022-02-22 12:00 | NUR ---
PATIENT IS SITTING ON COUCH. PATIENT EATING HIS LUNCH. NO COMPLAINTS AT THIS TIME. ADVISED TO CALL IF HE NEEDS ANYTHING. PATIENT VERBALIZED UNDERSTANDING.
--- NOTE | 2022-02-22 16:00 | NUR ---
PATIENT IS ON THE COUCH WITH A FAMILY MEMBER AT BEDSIDE. PATIENT STATES THAT HE IS FINE AND DOES NOT NEED ANYTHING AT THIS TIME. ADVISED TO CALL IF HE NEEDED ANYTHING
[2022-02-22 16:12] VITALS: BP 113/80
[2022-02-22 18:41] VITALS: BP 117/78
--- NOTE | 2022-02-22 20:13 | NUR ---
GLUCOSE METER SOFIA Danielle MD NOTIFIED NEW ORDERS OBTAINED.
--- NOTE | 2022-02-22 20:50 | NUR ---
PT RESTING IN BED WATCHING NO SIGNS OF DISTRESS NOTED, RESP EVEN AND UNLABORED. PT ALERT AND ORIENTED X3, NO EDEMA, DISCUSSED POC, AND NEW ORDERS PT VERBALIZED UNDERSTANDING. IV INFUSING TO RFA, SKIN INTACT. ASSESSMENT COMPLETED, PT MEDICATED PER MAR. CALL LIGHT IN REACH,CONTINUE TO MONITOR.
--- NOTE | 2022-02-23 | NUR ---
PT RESTING IN BED, VITALS OBTAINED, NO SIGNS OF DISTRESS NOTED, RESP EVEN AND UNLABORED. VOICES NO NEEDS OR COMPLAINTS. CALL LIGHT IN REACH,CONTINUE TO MONITOR.
[2022-02-23 00:05] VITALS: BP 116/79
[2022-02-23 04:52] VITALS: BP 103/74
[2022-02-23 05:08] LABS: HEMATOCRIT 34.6 % (39.0-50.0); HEMOGLOBIN 11.9 g/dl (14.0-18.0); IMMATURE GRANULOCYTES 0.2 % (0.0-5.0); MEAN CELL VOLUME 92.5 fL CALC (80.0-100.0); MEAN CORPUSCULAR HGB 31.8 pG CALC (26.0-32.0); MEAN CORPUSCULAR HGB CONC 34.4 g/dL CAL (32.0-36.0); NEUT# 2.33 thou/uL (1.82-7.42); RED BLOOD COUNT 3.74 mill/uL (4.70-6.10); RED CELL DISTRI WIDTH 11.7 % (11.5-15.5)
[2022-02-23 05:30] LABS: CREATININE 1.9 mg/dL (0.7-1.3); MAGNESIUM 1.7 mg/dL (1.6-2.3); POTASSIUM 3.3 mmol/l (3.5-5.1)
[2022-02-23 06:40] VITALS: BP 89/58
--- NOTE | 2022-02-23 06:45 | NUR ---
RECEIVED REPORT FROM PATRICIA BARTON.
--- NOTE | 2022-02-23 07:20 | NUR ---
PT SITTING ON BED; A&O X3. EVEN AND UNLABORED RESPIRATIONS; CLEAR LUNG SOUNDS UPON AUSCULTATION. TELEMETRY IN PLACE. IV SITES HEALTHY AND PATENT; #20G WITH NS @ 50MLS/HR, #22 RT FOREARM SL. ACTIVE BOWEL SOUNDS X4 QUADRANTS. SKIN IS INTACT. PT LATVIAN SPEAKING ONLY; PT EDUCATED ON INSULIN USES, AND IMPORTANCE OF BS MONITORING. SAFETY PRECAUTIONS IN PLACE WITH CALL LIGHT IN REACH.
--- NOTE | 2022-02-23 09:38 | NUR ---
PT C/O SLIGHTLY PAIN ON IV SITE, NO REDNESS OR SWELLING NOTICED. NURSE ELLIOT ELIAS REMOVED IV: #20 RIGHT FOREARM, CATHETER INTACT UPON REMOVAL. NEW IV SITE PLACE BY NURSE ELLIOT ELIAS: #22 LEFT AC, PT TOLERATED WELL. SAFETY PRECAUTIONS IN PLACE WITH CALL LIGHT IN REACH.
[2022-02-23 11:12] VITALS: BP 113/81
[2022-02-23] MEDS ORDERED: LEVEMIR100 UNIT SC (11:27)
[2022-02-23] MEDS ORDERED: SODIUM BICAR650 MG PO (11:29)
--- NOTE | 2022-02-23 12:32 | NUR ---
PT SITTING ON RECLINER. FAMILY AT BEDSIDE. NO DISTRESS NOTED. PT DENIES PAIN ATTHE MOMENT. NO NEEDS AT THE TIME. SAFETY PRECAUTIONS IN PLACE WITH CALL LIGHT IN REACH.
--- NOTE | 2022-02-23 14:56 | NUR ---
PT EDUCATED ON DC INSTRUCTIONS. TELEMETRY BOX REMOVED, ER NOTIFIED. REMOVED IV; #22 LEFT AC, #20 RT WRIST, CATHETERS INTACT UPON REMOVAL. Discharge instructions given. Patient verbalizes understanding of same. Discharged in stable condition via 5Ambulatory to Home with family. All belongings sent with pt. PT LEFT @ 1808
== END 2022-02-23 14:56 | disposition home or self-care (01) | DRG 637 ==
LOC: ED 16:21 → ED-I 18:00 → ED 18:17 → ICU 18:18 → MS2 02-20 17:28
PROVIDERS: Family Medicine; Hospitalist; Internal Medicine; Internal Medicine Nephrology; Nurse Practitioner; ADMIT Internal Medicine; ATTEND Internal Medicine
PROC: 0T9B70Z Drainage of Bladder with Drainage Device, Via Natural or Artificial Opening (ICD-10-PCS; principal; 2022-02-18)
DX: E11.10 Type 2 diabetes mellitus with ketoacidosis without coma (principal); N17.0 Acute kidney failure with tubular necrosis; E87.1 Hypo-osmolality and hyponatremia; F10.139 Alcohol abuse with withdrawal, unspecified; E87.6 Hypokalemia; E83.51 Hypocalcemia; E86.9 Volume depletion, unspecified; I95.9 Hypotension, unspecified; E83.42 Hypomagnesemia; R91.8 Other nonspecific abnormal finding of lung field; F17.210 Nicotine dependence, cigarettes, uncomplicated; T38.3X6A Underdosing of insulin and oral hypoglycemic [antidiabetic] drugs, initial encounter; Z79.4 Long term (current) use of insulin; Z91.120 Patient's intentional underdosing of medication regimen due to financial hardship; Z20.822 Contact with and (suspected) exposure to COVID-19
CPT/HCPCS: J1650; J2060; J3475; Q9967; S0164

== ENCOUNTER 2022-09-28 23:31 | Inpatient (IN) | payer SELFPAY ==
[~2022-09-28] VITALS: Ht 165.1 cm; Wt 65.0 kg
[~2022-09-28 23:31] MED LIST changes: +LEVEMIR100 UNIT SC; +SODIUM BICAR650 MG PO
--- NOTE | 2022-09-28 23:31 | NUR ---
PT ARRIVED TO ED VIA EMS, LAC 20G PATENT AT THIS TIME UNABLE TO OBTAIN SECOND ACCESS. PT ON MONITOR, GOWN ON, LAB OBTAINED BLOOD AND MD AT BEDSIDE.
[2022-09-28 23:42] VITALS: BP 136/91
[2022-09-28 23:45] VITALS: BP 140/96
[2022-09-29] VITALS (61 sets, daily range): BP systolic 89–142; BP diastolic 59–114
--- NOTE | 2022-09-29 | NUR ---
PT UNABLE TO URINATE AT THIS TIME, WILL CHECK BACK IN 30-40 MINUTES AFTER SECOND LITER OF NS HAS BEEN STARTED. PT IS RESTING AT THIS TIME. VSS. NAD.
[2022-09-29 00:11] LABS: BASO% 0.2 % (0-3); IMMATURE GRANULOCYTES 1.1 % (0.0-5.0); LYMPH% 6.6 % (15-41); MEAN CELL VOLUME 95.4 fL CALC (80.0-100.0); MEAN CORPUSCULAR HGB CONC 32.4 g/dL CAL (32.0-36.0); MONO% 5.3 % (2-13); NEUT# 12.33 thou/uL (1.82-7.42); NEUT% 86.8 % (42-76); RED BLOOD COUNT 5.04 mill/uL (4.70-6.10)
[2022-09-29 00:26] LABS: HEMATOCRIT 48.1 % (39.0-50.0); HEMOGLOBIN 15.6 g/dl (14.0-18.0)
[2022-09-29 00:35] LABS: ALKALINE PHOSPHATASE 137 u/l (38-126); BILIRUBIN, TOTAL 0.5 mg/dL (0.2-1.3); CHLORIDE 107 mmol/l (95-108); LIPASE 47 u/l (23-300); POTASSIUM 3.7 mmol/l (3.5-5.1); SGOT/AST 41 u/l (17-59); SODIUM 139 mmol/l (137-146)
[2022-09-29 00:48] LABS: BUN 6 mg/dL (9-20)
[2022-09-29 00:49] LABS: BUN/CREATININE RATIO 9 (12-20 (CALC)); CREATININE 0.7 mg/dL (0.7-1.3); GFR FOR AFR.AMER. > 60 ML/MIN (>=60 (CALC)); GFR OTHER RACES > 60 ML/MIN (>=60 (CALC))
[2022-09-29 00:50] LABS: ANION GAP 31 (6-22 (CALC)); CARBON DIOXIDE < 5 mmol/l (22-30); TOTAL PROTEIN 9.1 g/dL (6.3-8.2)
[2022-09-29 01:53] LABS: URINE BILIRUBIN - DIPSTICK NEGATIVE (NEGATIVE); URINE BLOOD DIPSTICK TRACE-INTACT (NEGATIVE); URINE COLOR YELLOW; URINE GLUCOSE - DIPSTICK 500 mg/dL (NEGATIVE); URINE KETONE >=80 mg/dL (NEGATIVE); URINE LEUK ESTERASE NEGATIVE (NEGATIVE); URINE PH 5.5 (4.5-8.0); URINE PROTEIN - DIPSTICK 30 mg/dL (NEG-TRACE); URINE SPECIFIC GRAVITY >=1.030; URINE UROBILINOGEN - DIPSTICK 0.2 E.U./dL (0.2)
[2022-09-29 01:54] LABS: URINE NITRITE - DIPSTICK NEGATIVE (Negative)
--- NOTE | 2022-09-29 01:55 | NUR ---
DR ROSE CALLED TO ADMIT PT. STICKER ON NOTIFIED. ICU ROOM 5
[2022-09-29 02:08] LABS: URINE BACTERIA FEW hpf; URINE EPITHELIAL CELLS FEW EPI/hpf (0-FEW); URINE WBC 0-2 WBC/hpf (0-5)
[2022-09-29 02:09] LABS: URINE HYALINE CAST FEW lpf (NONE-RARE)
--- NOTE | 2022-09-29 02:35 | NUR ---
INSULIN GTT STARTED AT 4 UNITS/HR - BS 311. THIRD NS 0.9% BOLUS STARTED.
--- NOTE | 2022-09-29 03:20 | NUR ---
20 G IV PLACED VIA ULTRASOUND IN RAC. 3RD NS 0.9% BOLUS FINISHING IN RAC.
--- NOTE | 2022-09-29 03:40 | NUR ---
BS 198 - INSULIN GTT TITRATED TO 2 UNITS/HR AND D5 1/2 NS HUNG AT 250 ML/HR PER INSULIN GTT PROTOCOL.
--- NOTE | 2022-09-29 04:30 | NUR ---
32 yr old male admitted to icu5 per stretcher from er. transferred self to bed. bed weight obtained. no c/o. clinical research monitor shows sinus tach. ivf infusing well per lac site. history obtained per er record. oriented to room. fall precautions initiated. bed alarm on.
--- NOTE | 2022-09-29 04:45 | NUR ---
REPORT CALLED TO DAYA GOMEZ IN ICU. PT STABLE AT TIME OF TRANSFER. VSS. PT NAD. BOOKBAG WITH BELONGINGS WITH PT AND IN ICU ROOM 5 WITH PT. PT HAS PHONE, SILVER NECKLACE ON, PANTS AND SANDLES OUTSIDE OF BOOKBAG. BELONGINGS CHECKED FOR DANGEROUS ITEMS. BAGGAGE CLEAN. EXPLAINED TO PT AGAIN VIA MENTAL HEALTH AIDES TEACHER THAT HE WAS NPO AT THIS TIME DUE TO THE SEVERITY OF HIS ILLNESS, AND THAT WE WERE TRANSFERRING HIM TO THE ICU FOR RECOVERY. PT UNDERSTOOD. PT A&OX4 AT THIS TIME STILL.
[2022-09-29 04:47] LABS: BASO% 0.2 % (0-3); IMMATURE GRANULOCYTES 4.3 % (0.0-5.0); LYMPH% 4.2 % (15-41); MEAN CORPUSCULAR HGB 31.8 pG CALC (26.0-32.0); MEAN CORPUSCULAR HGB CONC 31.3 g/dL CAL (32.0-36.0); MONO% 4.7 % (2-13); NEUT# 10.98 thou/uL (1.82-7.42); NEUT% 86.6 % (42-76); RED BLOOD COUNT 3.62 mill/uL (4.70-6.10); RED CELL DISTRI WIDTH 12.3 % (11.5-15.5)
[2022-09-29 04:49] LABS: HEMATOCRIT 36.8 % (39.0-50.0); HEMOGLOBIN 11.5 g/dl (14.0-18.0); MEAN CELL VOLUME 101.7 fL CALC (80.0-100.0)
--- NOTE | 2022-09-29 06:00 | NUR ---
eyes closed. no distress. monitor worker shows sinus tach.
[2022-09-29 06:35] LABS: BUN 7 mg/dL (9-20); BUN/CREATININE RATIO 10 (12-20 (CALC)); CHLORIDE 115 mmol/l (95-108); CREATININE 0.6 mg/dL (0.7-1.3); GFR FOR AFR.AMER. > 60 ML/MIN (>=60 (CALC)); GFR OTHER RACES > 60 ML/MIN (>=60 (CALC)); SODIUM 138 mmol/l (137-146)
[2022-09-29 06:36] LABS: ANION GAP 22 (6-22 (CALC)); CARBON DIOXIDE < 5 mmol/l (22-30)
--- NOTE | 2022-09-29 09:00 | NUR ---
PT SEEN AT REST IN THE BED, WAKENS EASILY. PT IS APPROPRIATE IN RESPONSES TO QUESTIONS. ACCUCHECKS HOURLY. IVF CHANGED PROTOCOL DICTATES.
[2022-09-29 11:07] LABS: BUN 7 mg/dL (9-20); BUN/CREATININE RATIO 12 (12-20 (CALC)); CHLORIDE 115 mmol/l (95-108); CREATININE 0.5 mg/dL (0.7-1.3); GFR FOR AFR.AMER. > 60 ML/MIN (>=60 (CALC)); GFR OTHER RACES > 60 ML/MIN (>=60 (CALC)); POTASSIUM 3.4 mmol/l (3.5-5.1); SODIUM 137 mmol/l (137-146)
[2022-09-29 11:13] LABS: ANION GAP 18 (6-22 (CALC))
[2022-09-29 11:38] LABS: CARBON DIOXIDE 7 mmol/l (22-30)
--- NOTE | 2022-09-29 12:00 | NUR ---
PT CONTINUES BEFORE, HOURLY ACCUCHECKS TRENDING DOWNWARD. GAP REMAINS OPEN.
[2022-09-29 15:22] LABS: ANION GAP 11 (6-22 (CALC)); BUN 8 mg/dL (9-20); BUN/CREATININE RATIO 14 (12-20 (CALC)); CARBON DIOXIDE 14 mmol/l (22-30); CHLORIDE 113 mmol/l (95-108); CREATININE 0.6 mg/dL (0.7-1.3); GFR FOR AFR.AMER. > 60 ML/MIN (>=60 (CALC)); GFR OTHER RACES > 60 ML/MIN (>=60 (CALC)); POTASSIUM 2.6 mmol/l (3.5-5.1); SODIUM 135 mmol/l (137-146)
--- NOTE | 2022-09-29 17:13 | NUR ---
INSULIN DRIP HAS BEEN STOPPED AFTER BLOOD SUGAR CHECKS LOWERED TO AROUND 100. BLOODWORK SHOWED THAT ANION GAP CLOSED. DR ROSE WAS MADE AWARE, SO HE DC/D THE INSULIN DRIP AND BEGAN ACHS COVERAGE. POTASSIUM WAS LOW, K RIDERS ORDERED. PT HUNGRY, MEAL PROVIDED.
--- NOTE | 2022-09-29 19:00 | NUR ---
awake. denies distress. criminal justice teacher shows sinus tach. #20 lac. ivf infusing well. po fluids taken well. voids per urinal. fall precautions & bed alarm conts.
--- NOTE | 2022-09-29 22:00 | NUR ---
eyes closed. no distress. ivf cont.
--- NOTE | 2022-09-29 23:28 | NUR ---
lab here. blood drawn.
[2022-09-30] VITALS (20 sets, daily range): BP systolic 64–115; BP diastolic 44–79
[2022-09-30] LABS: ANION GAP 19 (6-22 (CALC)); BUN 7 mg/dL (9-20); BUN/CREATININE RATIO 10 (12-20 (CALC)); CHLORIDE 108 mmol/l (95-108); CREATININE 0.7 mg/dL (0.7-1.3); GFR FOR AFR.AMER. > 60 ML/MIN (>=60 (CALC)); GFR OTHER RACES > 60 ML/MIN (>=60 (CALC)); POTASSIUM 2.9 mmol/l (3.5-5.1); SODIUM 135 mmol/l (137-146)
[2022-09-30 00:04] LABS: CARBON DIOXIDE 11 mmol/l (22-30)
--- NOTE | 2022-09-30 02:00 | NUR ---
resting quietly. resps even & unlabored. no apparent distress.
--- NOTE | 2022-09-30 04:11 | NUR ---
lb here. blood drawn.
[2022-09-30 04:49] LABS: MEAN CORPUSCULAR HGB 30.9 pG CALC (26.0-32.0); MEAN CORPUSCULAR HGB CONC 34.8 g/dL CAL (32.0-36.0); RED BLOOD COUNT 4.5 mill/uL (4.70-6.10); RED CELL DISTRI WIDTH 12.2 % (11.5-15.5)
[2022-09-30 04:50] LABS: HEMOGLOBIN 13.9 g/dl (14.0-18.0); MEAN CELL VOLUME 88.9 fL CALC (80.0-100.0)
[2022-09-30 05:01] LABS: ALBUMIN 3.6 g/dL (3.2-5.0); ALKALINE PHOSPHATASE 85 u/l (38-126); ANION GAP 10 (6-22 (CALC)); BILIRUBIN, TOTAL 0.5 mg/dL (0.2-1.3); BUN 7 mg/dL (9-20); BUN/CREATININE RATIO 12 (12-20 (CALC)); CARBON DIOXIDE 18 mmol/l (22-30); CHLORIDE 112 mmol/l (95-108); CREATININE 0.6 mg/dL (0.7-1.3); GFR FOR AFR.AMER. > 60 ML/MIN (>=60 (CALC)); GFR OTHER RACES > 60 ML/MIN (>=60 (CALC)); MAGNESIUM 2.3 mg/dL (1.6-2.3); POTASSIUM 2.9 mmol/l (3.5-5.1); SGOT/AST 27 u/l (17-59); SODIUM 137 mmol/l (137-146); TOTAL PROTEIN 7.1 g/dL (6.3-8.2)
--- NOTE | 2022-09-30 05:57 | NUR ---
eyes closed. cardiac cath technician shows sinus rhythm.
--- NOTE | 2022-09-30 09:36 | NUR ---
MargaretET SEEN ALERT AND ORIENTED X 3. pATIENT SEEN BY dR. ROSE. ANTICIPATE DISCHARGE AFTER FURTHER BLOOD WORK. PATIENT AMBULATORY IN ROOM, NO EVIDENCE OF TREMORS PER CIWA SCALE.
[2022-09-30 09:42] LABS: ANION GAP 11 (6-22 (CALC)); BUN 8 mg/dL (9-20); BUN/CREATININE RATIO 15 (12-20 (CALC)); CARBON DIOXIDE 17 mmol/l (22-30); CHLORIDE 108 mmol/l (95-108); CREATININE 0.6 mg/dL (0.7-1.3); GFR FOR AFR.AMER. > 60 ML/MIN (>=60 (CALC)); GFR OTHER RACES > 60 ML/MIN (>=60 (CALC)); SODIUM 134 mmol/l (137-146)
[2022-09-30] MEDS ORDERED: AMOX/K CLAV875 M1 PO (10:29)
--- NOTE | 2022-09-30 12:42 | NUR ---
PT HAS BEEN DISCHARGED TO HOME. PT VERBALIZED UNDERSTANDING OF DC INSTRUCTIONS, WAS TAKEN BY WHEELCHAIR TO VEHICLE. PT ADVISED TO STOP DRUGS AND ALCOHOL AND TO MONITOR BLOOD SUGAR BETTER.
== END 2022-09-30 12:30 | disposition home or self-care (01) | DRG 637 ==
LOC: ED 23:31 → ICU 09-29 02:49
PROVIDERS: Family Medicine; ADMIT Internal Medicine; ATTEND Internal Medicine
DX: E11.10 Type 2 diabetes mellitus with ketoacidosis without coma (principal); J18.9 Pneumonia, unspecified organism; N17.9 Acute kidney failure, unspecified; E87.6 Hypokalemia; F15.10 Other stimulant abuse, uncomplicated; F10.20 Alcohol dependence, uncomplicated; F17.210 Nicotine dependence, cigarettes, uncomplicated; Z79.4 Long term (current) use of insulin
CPT/HCPCS: Q9967; S0164

== ENCOUNTER 2023-02-28 07:26 | Emergency (ER) | payer SELFPAY ==
[2023-02-28] VITALS (23 sets, daily range): BP systolic 97–114; BP diastolic 61–83
[~2023-02-28] VITALS: Ht 165.1 cm; Wt 60.4 kg
[~2023-02-28 07:26] MED LIST changes: +AMOX/K CLAV875 M1 PO
[2023-02-28 08:48] LABS: BASO% 0.4 % (0-3); EOS% 0.5 % (0-8); HEMATOCRIT 37.3 % (39.0-50.0); IMMATURE GRANULOCYTES 0.3 % (0.0-5.0); LYMPH% 10.8 % (15-41); MEAN CORPUSCULAR HGB 25.7 pG CALC (26.0-32.0); MEAN CORPUSCULAR HGB CONC 31.9 g/dL CAL (32.0-36.0); MONO% 8.5 % (2-13); NEUT# 6.21 thou/uL (1.82-7.42); NEUT% 79.5 % (42-76); RED BLOOD COUNT 4.63 mill/uL (4.70-6.10); RED CELL DISTRI WIDTH 14.9 % (11.5-15.5)
[2023-02-28 08:58] LABS: ALBUMIN 3.9 g/dL (3.2-5.0); ALKALINE PHOSPHATASE 100 u/l (38-126); BILIRUBIN, TOTAL 0.6 mg/dL (0.2-1.3); BUN 6 mg/dL (9-20); BUN/CREATININE RATIO 12 (12-20 (CALC)); CREATININE 0.5 mg/dL (0.7-1.3); GFR FOR AFR.AMER. > 60 ML/MIN (>=60 (CALC)); GFR OTHER RACES > 60 ML/MIN (>=60 (CALC)); SGOT/AST 20 u/l (17-59); SODIUM 131 mmol/l (137-146)
[2023-02-28 09:04] LABS: ANION GAP 19 (6-22 (CALC)); CARBON DIOXIDE 21 mmol/l (22-30); CHLORIDE 95 mmol/l (95-108); POTASSIUM 4.2 mmol/l (3.5-5.1); TOTAL PROTEIN 8.6 g/dL (6.3-8.2)
[2023-02-28 09:06] LABS: HEMOGLOBIN 11.9 g/dl (14.0-18.0); MEAN CELL VOLUME 80.6 fL CALC (80.0-100.0)
== END 2023-02-28 13:35 | disposition short-term general hospital (02) | DRG 179 ==
LOC: ED 07:26
PROVIDERS: Family Medicine
DX: A15.0 Tuberculosis of lung (principal); J18.9 Pneumonia, unspecified organism; E11.9 Type 2 diabetes mellitus without complications; Z79.4 Long term (current) use of insulin